=== PATIENT | female | born 1975 | race Hispanic/Latino ===

== ENCOUNTER 2022-07-25 10:51 | Emergency (ER) | payer OTHER ==
--- OUTSIDE RECORDS SUMMARY | 2022-07-25 11:04 | XMS REPORT | Continuity of Care Document ---
:1975 Author Organization [facility] t Address [address] [place] [address] Care Team Providers Name Role Phone Roberth Handley MD Primary Care Physician [phone] BLANQUITA OSORIO Attending Clinician Unavailable Parvez Coleman Attending Clinician Pob, [facility] Main Attending Clinician Unavailable Bri Majano MD Attending Clinician BRI MAJANO Attending Clinician Unavailable Doctor Unassigned, [place] Attending Clinician Unavailable ALONSO EDMOND Attending Clinician Unavailable Bacilio Greene Attending Clinician Unavailable Blanquita Osorio PA-C Attending Clinician Angeline Mejia MD Attending Clinician ANGELINE MEJIA Attending Clinician Unavailable MILES VU Attending Clinician Unavailable Ethel Vigil Attending Clinician Miles Gomez Attending Clinician Lab, Ang - Db Attending Clinician Unavailable PARVEZ HERNANDEZ Attending Clinician Unavailable Roberth Handley MD Attending Clinician CALLY SIMENTAL Attending Clinician Unavailable Claly Simental MD Attending Clinician Unknown, Attending Attending Clinician Unavailable Radha Tanner Attending Clinician 1, [facility] Attending Clinician Unavailable ROBERTH HANDLEY Attending Clinician Unavailable Elis Alfonso Attending Clinician ELIS FAIRCHILD Attending Clinician Unavailable RAS JACOBSEN Attending Clinician Unavailable RAS JACOBSEN Attending Clinician Unavailable Mike ZAMARRIPA, Edward Man Attending Clinician Eleanor ZAMARRIPA, Sly Smith Attending Clinician [phone] Diego ZAMARRIPA, Emil Attending Clinician EMIL HANSEN Attending Clinician Unavailable Kymberly Guzman DO Attending Clinician Ras Jacobsen MD Attending Clinician Dorian Brandt Attending Clinician Fahad Swenson MD Attending Clinician RADIOLOGY Attending Clinician Unavailable Paris Vizcarra Attending Clinician Lab, Adc Fam Pob I Attending Clinician Unavailable Fadi Jones Attending Clinician BLANQUITA OSORIO Admitting Clinician Unavailable Fadi Jones Admitting Clinician Payers Payer Name Policy Type Policy Number Effective Date Expiration Date S ource [employer] MEDICARE [id number] 2019 00:00:00 [employer] MCARE [id number] 2021 ADV CHOICE PPO 00:00:00 Problems Condition Condition Condition Status Onset Resolution Last Treating Co mments Source Name Details Category Date Date Treatment Clinician Date Hyperglyce Hyperglyce Disease Active 2020-09 U nivers rajinder rajinder 2 ity of 00:00: [address] Lyme Lyme Disease Active Univers disease disease 04-29 ity of 00:00: [address] Seizure Seizure Disease Active Univers disorder disorder 10-07 ity of 00:00: [address] Chronic Chronic Disease Active Univers depression depression 1-09 it y of 00:00: [place] [facility] SEIZURE SEIZURE Diagnosis Active 2018-092019-07-19 Memoria Active 11:45:00 l 07/17/2019 00:00: [place] tovar [address] BACK BACK Diagnosis Active 2018-092019-07-17 Mem oria PAIN/SEIZU PAIN/SEIZU 11:12:00 l RE RE Active 00:00: [place] 07/17/[address] [place] [address] History of History of Disease Active 2018- U nivers stroke stroke 4-21 ity of 00:00: [place] [facility] Benzodiaze Benzodiaze Disease Active U nivers pine pine 6-17 ity of overdose overdose 00:00: [place] [address] Medical Branch Obesity Obesity Disease Active Univers (BMI (BMI 5-05 ity of 30-39.9) 30-39.9) 00:00: [place] 00 Medical Branch Polyneurop Polyneuro Problem Active 2014-092019-07-20 Memoria athy due eliud due 0- 21:28:17 l to drug to drug 00:00: Memo (disorder) (disorder) 00 Active 07/11/2015 Problem 07/20/2019 Data migrated from WIB on 10/16/15. The patient has a very high B6 level which is known to cause burning sensations despite her claim she is not taking any. I don t know any condition that could create a B6 level other than exogenous intake. She can discuss this with her PCP and endocrinol ogy. I am no expert in the condition and told her so. 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 [facility] Arthritis Arthritis Problem Active 2014-092019-07-20 Memoria (disorder) (disorder) 0- 21:28:17 l Active 00:00: Memo 07/11/2015 00 Problem 07/20/2019 Data migrated from WIB on 10/16/15. The patient has joint pain in hands and a mother with RA. She should be evaluated for same and should consider that her neck pain may be of the same etiology. Originally documented as Arthritis. [facility] Refractory Refractor Problem Active 2014-092019-07-20 Memoria migraine y migraine 0-13 21:28:17 l without without 00:00: Memo aura aura 00 (disorder) (disorder) Active 07/11/2015 Problem 07/20/2019 Data migrated from WIB on 10/16/15. The patient has FCM that could be treated but there is obvious systemic non-migrai ne problems. Treating the migraine disorder in isolation is not likely to work. Originally documented as Common migraine with intractabl e migraine.< br/>Data migrated from WIB on 10/16/15. The patient has a migraine disorder that is severe, prolonged and frequent. Originally documented as Common migraine with intractabl e migraine. [facility] Anxiety Anxiety Problem Active 2019-07-20 Me moria disorder disorder 06-28 21:28:17 l (disorder) (disorder) 00:00: He rmann Active 06/28/2015 Problem 07/20/2019 Data migrated from WIB on 10/16/15. Supposedly controlled but with somatizati on. Originally documented as Anxiety disorder. [place] Paresthesi Paresthes Problem Active 2019-07-20 Memoria a of foot ia of foot 06-28 21:28:17 l (finding) (finding) 00:00: Herm harry Active 06/28/2015 Problem 07/20/2019 Data migrated from WIB on 10/16/15. The burning sensations are in spells and not explained by exam. There is increased pp in the legs but reflexes are normal.- Originally documented as Burning sensation of the foot. [place] BE on BE on Disease Active Univers CPAP CPAP ity of [facility] [place] Acid Acid Disease Active Univers reflux reflux ity of [facility] [place] Anxiety Anxiety Disease Active Univers and and ity of depression depression [facility] Fibromyalg Fibromyalg Disease Active U nivers ia ia ity of [facility] [place] Hyperlipid Hyperlipid Disease Active U nivers emia emia ity of [facility] [place] Irritable Irritable Disease Active Uni vers bowel bowel ity of syndrome syndrome [facility] [place] PCOS PCOS Disease Active Univers (polycysti (polycysti it y of c ovarian c ovarian [place] syndrome) syndrome) [facility] Seasonal Seasonal Disease Active Unive rs allergies allergies ity of [facility] [place] Colon Colon Disease Active Univers polyp polyp ity of [facility] [place] Asthma Asthma Disease Active Univers ity of [facility] [place] Benign Benign Problem Active 2019-07-20 [place] sae hypertensi hypertensi 21:28:17 l on on [place] (disorder) (disorder) Active Problem 07/20/2019 [facility] Central Central Problem Active 2019-07-20 Me moria sleep sleep 21:28:17 l apnea apnea Memo syndrome syndrome (disorder) (disorder) Active Problem 07/20/2019 [facility] Chronic Chronic Problem Active 2019-07-20 Me moria back pain back pain 21:28:17 l (disorder) (disorder) He rmann Active Problem 07/20/2019 [facility] 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 ) (situation ) Active Problem 07/20/2019 [facility] Polycystic Polycysti Problem Active 2019-07-20 Memoria ovaries c ovaries 21:28:17 l (disorder) (disorder) [place] r[place] Active Problem 07/20/2019 [facility] Vertigo Vertigo Problem Active 2019-07-20 Me moria (finding) (finding) 21:28:17 l Active Memo Problem 07/20/2019 [facility] UNSPECIFIE UNSPECIFI Diagnosis Active 2019-07-19 Memoria D ED 11:45:00 l CONVULSION CONVULSION He rmann S S Active [facility] Allergies, Adverse Reactions, Alerts Allergy Allergy Status Severity Reaction(s) Onset Inactive Treating Comm ents Source Name Type Date Date Clinician STERI DA Active [place] [facility] STIPS 06-20 [place] 00:00: [facility] TAPE DA Active [place] [facility] - [place] 00[facility]00: d [facility] NO KNOWN Drug Active Univers ALLERGIE Class ity of S [facility] [place] Social History Social Habit Start Date Stop Date Quantity Comments Source History of Passive smoker University of tobacco use [facility] [place] Exposure to 2022-06-18 2022-06-28 Not sure [facility] SARS-CoV-2 00:00:00 10:04:00 [place] [facility] (event) Branch Alcohol intake 2022-05-08 2022-05-08 Current University of 00:00:00 00:00:00 non-drinker of [facility] alcohol (finding) Branch Tobacco use and 2022-04-24 2022-04-24 Smokeless tobacco Un iversity of exposure 00:00:00 00:00:00 non-user [facility] [place] Social History 2017-09-08 2017-09-08 [facility] Johnny crabtree 17:58:08 17:58:08 [birth year] Universit y of 00:00:00 00:00:00 [facility] [place] Smoking Status Start Date Stop Date Source Never smoked tobacco [facility] Medications Ordered Filled Start Stop Current Ordering Indication Dosage Frequency Signature Comments Components Source Medication Medication Date Date Medication? Clinician (SIG) Name Name pantoprazol 2021-09- pantoprazo Univers e 40 mg EC 0-26 10-26 le 40 mg ity of tablet 09:28: 00[place] ay[place] Medical release Branch famotidine 2021-09 Yes [id number] 40mg Take 1 Univers 40 mg 0-26 tablet by ity of tablet 00:00: mouth in [place] 00 the Medical morning. Branch pseudoephed Yes Virtussin U nivers rine-codein 7-27 DAC 30 ity of e[place] 10:51: mg-10 [place] in 12 mg-100 Medical 30-10-100 mg/5 mL Branch mg/5 mL oral syrup solution tiZANidine Yes tizanidine U nivers 2 mg tablet 04-24 2 mg ity of 10:51: tablet [place] [address] Take 1 Medical tablet as Branch needed by oral route at bedtime for 30 days. valACYclovi Yes valacyclov Univers r 500 mg 7-27 ir 500 mg ity of tablet 10:51: tablet [address] GLUC/CHND/O Yes Take by Uni vers M3/DHA/EPA/ 7-27 mouth. ity of FISH/STR 10:51: [place] (GLUCOSAMIN 12 Medical E Branch CHONDROITIN PLUS ORAL) SERTraline Yes 200mg Take 200 Un yudy 100 mg 7-27 mg by ity of tablet 10:51: mouth [place] [address] daily. Medical Branch azithromyci Yes azithromyc Univers n 250 mg 7-27 in 250 mg ity of tablet 10:51: tablet [place] [address] Medical Branch Diclofenac Yes Voltaren 1 U nivers Sodium 1 % 7-27 % topical ity of gel 10:51: gel [place] 12 Medical Branch fluticasone Yes fluticason Univers propionate 7-27 e ity of 50 10:51: propionate [place] mcg/actuati 12 50 Medical on nasal mcg/actuat Branc h spray ion nasal spray,susp ension ipratropium Yes ipratropiu Univers -albuteroL 7-27 m 0.5 ity of 0.5 mg-3 10:51: mg-albuter [place] as mg(2.5 mg 12 ol 3 mg Medical base)/3 mL (2.5 mg Branch nebulizer base)/3 mL solution nebulizati on soln ketoconazol Yes ketoconazo Univers e 2 % 04-24 le 2 % ity of shampoo 10:51: shampoo [address] losartan 25 Yes losartan Un yudy mg tablet 04-24 25 mg ity of 10:51: tablet [address] metoclopram Yes metoclopra Univers bert HCl 10 04-24 mide 10 mg ity of mg tablet 10:51: tablet [address] ondansetron Yes ondansetro Univers 4 mg tablet 04-24 n HCl 4 mg it y of 10:51: tablet [address] polyethylen Yes Miralax 17 Univers e glycol 7-27 gram oral ity of 3350 17 10:51: powder [place] gram powder 12 packet Medica l Take 1 Branch packet(s) twice a day by oral route for 28 days. pregabalin Yes Lyrica 75 Un yudy 75 mg -27 mg capsule ity of capsule 10:51: Take 1 [place] 12 capsule 3 Medical times a Branch day by oral route as directed for 30 days. pseudoephed Yes Virtussin U nivers rine-codein 727 DAC 30 ity of [place] 10:51: mg-10 [place] in 12 mg-100 Medical 30-10-100 mg/5 mL Branch mg/5 mL oral syrup solution tiZANidine Yes tizanidine U nivers 2 mg tablet 04-24 2 mg ity of 10:51: tablet [place] 12 Take 1 Medical tablet as Branch needed by oral route at bedtime for 30 days. valACYclovi Yes valacyclov Univers r 500 mg 04-24 ir 500 mg ity of tablet 10:51: tablet [address] GLUC/CHND/O Yes Take by Uni vers M3/DHA/EPA/ 04-24 mouth. ity of FISH/STR 10:51: [place] (GLUCOSAMIN Medical E Branch CHONDROITIN PLUS ORAL) SERTraline Yes 200mg Take 200 Un yudy 100 mg 04-24 mg by ity of tablet 10:51: mouth [place] [address] daily. Medical Branch azithromyci Yes azithromyc Univers n 250 mg 04-24 in 250 mg ity of tablet 10:51: tablet [address] Diclofenac Yes Voltaren 1 U nivers Sodium 1 % 04-24 % topical ity of gel 10:51: gel [address] fluticasone Yes fluticason Univers propionate 04-24 e ity of 50 10:51: propionate [place] mcg/actuati 12 50 Medical on nasal mcg/actuat Branc h spray ion nasal spray,susp ension ipratropium Yes ipratropiu Univers -albuteroL 04-24 m 0.5 ity of 0.5 mg-3 10:51: mg-albuter [place] as mg(2.5 mg 12 ol 3 mg Medical base)/3 mL (2.5 mg Branch nebulizer base)/3 mL solution nebulizati on soln ketoconazol Yes ketoconazo Univers e 2 % 04-24 le 2 % ity of shampoo 10:51: shampoo [address] losartan 25 Yes losartan Un yudy mg tablet 04-24 25 mg ity of 10:51: tablet [address] metoclopram Yes metoclopra Univers bert HCl 10 04-24 mide 10 mg ity of mg tablet 10:51: tablet [address] ondansetron Yes ondansetro Univers 4 mg tablet 04-24 n HCl 4 mg it y of 10:51: tablet [address] pantoprazol Yes pantoprazo Univers e 40 mg EC 04-24 le 40 mg ity o f tablet 10:51: tablet,del [place] 12 ayed Medical release Branch polyethylen Yes Miralax 17 Univers e glycol 7-27 gram oral ity of 3350 17 10:51: powder [place] gram powder 12 packet Medica l Take 1 Branch packet(s) twice a day by oral route for 28 days. pregabalin Yes Lyrica 75 Un yudy 75 mg 7-27 mg capsule ity of capsule 10:51: Take 1 [place] 12 capsule 3 Medical times a Branch day by oral route as directed for 30 days. pseudoephed Yes Virtussin U nivers rine-codein 04-24 DAC 30 ity of e[place] 10:51: mg-10 [place] in 12 mg-100 Medical 30-10-100 mg/5 mL Branch mg/5 mL oral syrup solution tiZANidine Yes tizanidine U nivers 2 mg tablet 04-24 2 mg ity of 10:51: tablet [place] 12 Take 1 Medical tablet as Branch needed by oral route at bedtime for 30 days. valACYclovi Yes valacyclov Univers r 500 mg 04-24 ir 500 mg ity of tablet 10:51: tablet [place] [address] Medical Branch GLUC/CHND/O Yes Take by Uni vers M3/DHA/EPA/ 04-24 mouth. ity of FISH/STR 10:51: [place] (GLUCOSAMIN 12 Medical E Branch CHONDROITIN PLUS ORAL) SERTraline Yes 200mg Take 200 Un yudy 100 mg -27 mg by ity of tablet 10:51: mouth [place] 12 daily. Medical Branch azithromyci Yes azithromyc Univers n 250 mg 27 in 250 mg ity of tablet 10:51: tablet [place] [address] Medical Branch Diclofenac Yes Voltaren 1 U nivers Sodium 1 % 04-24 % topical ity of gel 10:51: gel Medical Branch fluticasone Yes fluticason Univers propionate 04-24 e ity of 50 10:51: propionate [place] mcg/actuati 12 50 Medical on nasal mcg/actuat Branc h spray ion nasal spray,susp ension ipratropium Yes ipratropiu Univers -albuteroL 04-24 m 0.5 ity of 0.5 mg-3 10:51: mg-albuter [place] mg(2.5 mg 12 ol 3 mg Medical base)/3 mL (2.5 mg Branch nebulizer base)/3 mL solution nebulizati on soln ketoconazol Yes ketoconazo Univers e 2 % 7-27 le 2 % ity of shampoo 10:51: shampoo [address] Branch losartan 25 Yes losartan Un yudy mg tablet 27 25 mg ity of 10:51: tablet [address] Branch metoclopram Yes metoclopra Univers bert HCl 10 04-24 mide 10 mg ity of mg tablet 10:51: tablet [address] ondansetron Yes ondansetro Univers 4 mg tablet 04-24 n HCl 4 mg it y of 10:51: tablet [address] pantoprazol Yes pantoprazo Univers e 40 mg EC 04-24 le 40 mg ity o f tablet 10:51: tablet,del [place] [address] ayed Medical release Branch polyethylen Yes Miralax 17 Univers e glycol 7-27 gram oral ity of 3350 17 10:51: powder [place] gram powder 12 packet Medica l Take 1 Branch packet(s) twice a day by oral route for 28 days. pregabalin Yes Lyrica 75 Un yudy 75 mg 7-27 mg capsule ity of capsule 10:51: Take 1 [place] 12 capsule 3 Medical times a Branch day by oral route as directed for 30 days. pseudoephed Yes Virtussin U nivers rine-codein 7-27 DAC 30 ity of [place] 10:51: mg-10 [place] in 12 mg-100 Medical 30-10-100 mg/5 mL Branch mg/5 mL oral syrup solution tiZANidine Yes tizanidine U nivers 2 mg tablet 04-24 2 mg ity of 10:51: tablet [place] 12 Take 1 Medical tablet as Branch needed by oral route at bedtime for 30 days. valACYclovi Yes valacyclov Univers r 500 mg 7-27 ir 500 mg ity of tablet 10:51: tablet [address] GLUC/CHND/O 2022-0 Yes Take by Uni vers M3/DHA/EPA/ - mouth. ity of FISH/STR 10:51: [place] (GLUCOSAMIN 12 Medical E Branch CHONDROITIN PLUS ORAL) SERTraline Yes 200mg Take 200 Un yudy 100 mg 7-27 mg by ity of tablet 10:51: mouth [place] [address] daily. Medical Branch azithromyci Yes azithromyc Univers n 250 mg -27 in 250 mg ity of tablet 10:51: tablet [address] Diclofenac Yes Voltaren 1 U nivers Sodium 1 % 04-24 % topical ity of gel 10:51: gel [address] fluticasone Yes fluticason Univers propionate 04-24 e ity of 50 10:51: propionate [place] mcg/actuati 12 50 Medical on nasal mcg/actuat Branc h spray ion nasal spray,susp ension ipratropium Yes ipratropiu Univers -albuteroL 04-24 m 0.5 ity of 0.5 mg-3 10:51: mg-albuter [place] as mg(2.5 mg 12 ol 3 mg Medical base)/3 mL (2.5 mg Branch nebulizer base)/3 mL solution nebulizati on soln ketoconazol Yes ketoconazo Univers e 2 % 04-24 le 2 % ity of shampoo 10:51: shampoo [address] losartan 25 Yes losartan Un yudy mg tablet 04-24 25 mg ity of 10:51: tablet [address] metoclopram Yes metoclopra Univers bert HCl 10 04-24 mide 10 mg ity of mg tablet 10:51: tablet [address] ondansetron Yes ondansetro Univers 4 mg tablet 04-24 n HCl 4 mg it y of 10:51: tablet [address] pantoprazol Yes pantoprazo Univers e 40 mg EC 04-24 le 40 mg ity o f tablet 10:51: tablet,del [place] [address] ayed Medical release Branch polyethylen Yes Miralax 17 Univers e glycol 7-27 gram oral ity of 3350 17 10:51: powder [facility] powder 12 packet Medica l Take 1 Branch packet(s) twice a day by oral route for 28 days. pregabalin Yes Lyrica 75 Un yudy 75 mg 7-27 mg capsule ity of capsule 10:51: Take 1 [place] 12 capsule 3 Medical times a Branch day by oral route as directed for 30 days. pseudoephed Yes Virtussin U nivers rine-codein 04-24 DAC 30 ity of [place] 10:51: mg-10 [place] in 12 mg-100 Medical 30-10-100 mg/5 mL Branch mg/5 mL oral syrup solution tiZANidine Yes tizanidine U nivers 2 mg tablet 04-24 2 mg ity of 10:51: tablet [place] 12 Take 1 Medical tablet as Branch needed by oral route at bedtime for 30 days. valACYclovi Yes valacyclov Univers r 500 mg - ir 500 mg ity of tablet 10:51: tablet [address] Branch GLUC/CHND/O Yes Take by Uni vers M3/DHA/EPA/ 04-24 mouth. ity of FISH/STR 10:51: [place] (GLUCOSAMIN 12 Medical E Branch CHONDROITIN PLUS ORAL) SERTraline Yes 200mg Take 200 Un yudy 100 mg 7-27 mg by ity of tablet 10:51: mouth [place] 12 daily. Medical Branch azithromyci Yes azithromyc Univers n 250 mg -27 in 250 mg ity of tablet 10:51: tablet [address] Branch Diclofenac Yes Voltaren 1 U nivers Sodium 1 % 04-24 % topical ity of gel 10:51: gel [address] Branch fluticasone Yes fluticason Univers propionate 04-24 e ity of 50 10:51: propionate [place] mcg/actuati 12 50 Medical on nasal mcg/actuat Branc h spray ion nasal spray,susp ension ipratropium Yes ipratropiu Univers -albuteroL 04-24 m 0.5 ity of 0.5 mg-3 10:51: mg-albuter [place] as mg(2.5 mg 12 ol 3 mg Medical base)/3 mL (2.5 mg Branch nebulizer base)/3 mL solution nebulizati on soln ketoconazol Yes ketoconazo Univers e 2 % - le 2 % ity of shampoo 10:51: shampoo [place] [address] Medical Branch losartan 25 Yes losartan Un yudy mg tablet 04-24 25 mg ity of 10:51: tablet [address] Branch metoclopram Yes metoclopra Univers bert HCl 10 04-24 mide 10 mg ity of mg tablet 10:51: tablet [address] Branch ondansetron Yes ondansetro Univers 4 mg tablet 04-24 n HCl 4 mg it y of 10:51: tablet [address] Branch pantoprazol Yes pantoprazo Univers e 40 mg EC 04-24 le 40 mg ity o f tablet 10:51: tablet,del [place] [address] ayed Medical release Branch polyethylen Yes Miralax 17 Univers e glycol 7-27 gram oral ity of 3350 17 10:51: powder [place] gram powder 12 packet Medica l Take 1 Branch packet(s) twice a day by oral route for 28 days. pregabalin Yes Lyrica 75 Un yudy 75 mg -27 mg capsule ity of capsule 10:51: Take 1 [place] [address] capsule 3 Medical times a Branch day by oral route as directed for 30 days. pseudoephed Yes Virtussin U nivers rine-codein 04-24 DAC 30 ity of e[place] 10:51: mg-10 [place] in 12 mg-100 Medical 30-10-100 mg/5 mL Branch mg/5 mL oral syrup solution tiZANidine Yes tizanidine U nivers 2 mg tablet 04-24 2 mg ity of 10:51: tablet [place] 12 Take 1 Medical tablet as Branch needed by oral route at bedtime for 30 days. valACYclovi Yes valacyclov Univers r 500 mg - ir 500 mg ity of tablet 10:51: tablet [address] GLUC/CHND/O Yes Take by Uni vers M3/DHA/EPA/ 04-24 mouth. ity of FISH/STR 10:51: [place] (GLUCOSAMIN 12 Medical E Branch CHONDROITIN PLUS ORAL) SERTraline Yes 200mg Take 200 Un yudy 100 mg 7-27 mg by ity of tablet 10:51: mouth [place] [address] daily. Medical Branch azithromyci Yes azithromyc Univers n 250 mg 7-27 in 250 mg ity of tablet 10:51: tablet [address] Diclofenac Yes Voltaren 1 U nivers Sodium 1 % 7-27 % topical ity of gel 10:51: gel [address] fluticasone Yes fluticason Univers propionate 7-27 e ity of 50 10:51: propionate [place] mcg/actuati 12 50 Medical on nasal mcg/actuat Branc h spray ion nasal spray,susp ension ipratropium Yes ipratropiu Univers -albuteroL 7- m 0.5 ity of 0.5 mg-3 10:51: mg-albuter [place] as mg(2.5 mg 12 ol 3 mg Medical base)/3 mL (2.5 mg Branch nebulizer base)/3 mL solution nebulizati on soln ketoconazol Yes ketoconazo Univers e 2 % -27 le 2 % ity of shampoo 10:51: shampoo [address] losartan 25 Yes losartan Un yudy mg tablet 7-27 25 mg ity of 10:51: tablet [address] metoclopram Yes metoclopra Univers bert HCl 10 04-24 mide 10 mg ity of mg tablet 10:51: tablet [address] ondansetron Yes ondansetro Univers 4 mg tablet 04-24 n HCl 4 mg it y of 10:51: tablet [address] pantoprazol Yes pantoprazo Univers e 40 mg EC 7-27 le 40 mg ity o f tablet 10:51: tablet,del [place] [address] ayed [facility] release [place] polyethylen Yes Miralax 17 Univers e glycol 7-27 gram oral ity of 3350 17 10:51: powder [facility] powder packet Medica l Take 1 Branch packet(s) twice a day by oral route for 28 days. pregabalin Yes Lyrica 75 Un yudy 75 mg 7-27 mg capsule ity of capsule 10:51: Take 1 [place] [address] capsule 3 Medical times a Branch day by oral route as directed for 30 days. pseudoephed Yes Virtussin U nivers rine-codein 04-24 DAC 30 ity of [place] 10:51: mg-10 [place] in 12 mg-100 Medical 30-10-100 mg/5 mL Branch mg/5 mL oral syrup solution tiZANidine Yes tizanidine U nivers 2 mg tablet 04-24 2 mg ity of 10:51: tablet [place] [address] Take 1 Medical tablet as Branch needed by oral route at bedtime for 30 days. valACYclovi Yes valacyclov Univers r 500 mg 04-24 ir 500 mg ity of tablet 10:51: tablet [address] GLUC/CHND/O Yes Take by Uni vers M3/DHA/EPA/ 04-24 mouth. ity of FISH/STR 10:51: [place] (GLUCOSAMIN 12 Medical E Branch CHONDROITIN PLUS ORAL) SERTraline Yes 200mg Take 200 Un yudy 100 mg 04-24 mg by ity of tablet 10:51: mouth [place] 12 daily. [facility] Branch azithromyci Yes azithromyc Univers n 250 mg 04-24 in 250 mg ity of tablet 10:51: tablet [address] Diclofenac Yes Voltaren 1 U nivers Sodium 1 % 04-24 % topical ity of gel 10:51: gel [address] fluticasone Yes fluticason [facility] propionate 04-24 e ity of 50 10:51: propionate [place] mcg/actuati 12 50 Medical on nasal mcg/actuat Branc h spray ion nasal spray,susp ension ipratropium Yes ipratropiu Univers -albuteroL 27 m 0.5 ity of 0.5 mg-3 10:51: mg-albuter [place] as mg(2.5 mg 12 ol 3 mg Medical base)/3 mL (2.5 mg Branch nebulizer base)/3 mL solution nebulizati on soln ketoconazol Yes ketoconazo [facility] e 2 % 27 le 2 % ity of shampoo 10:51: shampoo [place] 12 Medical Branch losartan 25 Yes losartan Un yudy mg tablet 04-24 25 mg ity of 10:51: tablet [place] [address] Medical Branch metoclopram Yes metoclopra Univers bert HCl 10 04-24 mide 10 mg ity of mg tablet 10:51: tablet [place] [address] Medical Branch ondansetron Yes ondansetro Univers 4 mg tablet 04-24 n HCl 4 mg it y of 10:51: tablet [address] Branch pantoprazol Yes pantoprazo Univers e 40 mg EC 04-24 le 40 mg ity o f tablet 10:51: tablet,del [place] [address] ayed Medical release Branch polyethylen Yes Miralax 17 Univers e glycol 7-27 gram oral ity of 3350 17 10:51: powder [facility] powder 12 packet Medica l Take 1 Branch packet(s) twice a day by oral route for 28 days. pregabalin Yes Lyrica 75 Un yudy 75 mg 7-27 mg capsule ity of capsule 10:51: Take 1 [place] [address] capsule 3 Medical times a Branch day by oral route as directed for 30 days. pseudoephed Yes Virtussin U nivers rine-codein -27 DAC 30 ity of e-[place] 10:51: mg-10 [place] in 12 mg-100 Medical 30-10-100 mg/5 mL Branch mg/5 mL oral syrup solution tiZANidine Yes tizanidine U nivers 2 mg tablet 04-24 2 mg ity of 10:51: tablet [place] [address] Take 1 Medical tablet as Branch needed by oral route at bedtime for 30 days. valACYclovi Yes valacyclov Univers r 500 mg - ir 500 mg ity of tablet 10:51: tablet [address] Branch GLUC/CHND/O Yes Take by Uni vers M3/DHA/EPA/ 04-24 mouth. ity of FISH/STR 10:51: [place] (GLUCOSAMIN 12 Medical E Branch CHONDROITIN PLUS ORAL) SERTraline Yes 200mg Take 200 Un yudy 100 mg 7-27 mg by ity of tablet 10:51: mouth [place] 12 daily. Medical Branch azithromyci Yes azithromyc Univers n 250 mg 04-24 in 250 mg ity of tablet 10:51: tablet [address] Diclofenac Yes Voltaren 1 U nivers Sodium 1 % 04-24 % topical ity of gel 10:51: gel [address] fluticasone Yes fluticason [facility] propionate 04-24 e ity of 50 10:51: propionate [place] mcg/actuati 12 50 Medical on nasal mcg/actuat Branc h spray ion nasal spray,susp ension ipratropium Yes ipratropiu [facility] -albuteroL 04-24 m 0.5 ity of 0.5 mg-3 10:51: mg-albuter [place] as mg(2.5 mg 12 ol 3 mg Medical base)/3 mL (2.5 mg Branch nebulizer base)/3 mL solution nebulizati on soln ketoconazol Yes ketoconazo Univers e 2 % 04-24 le 2 % ity of shampoo 10:51: shampoo [address] losartan 25 Yes losartan Un yudy mg tablet 04-24 25 mg ity of 10:51: tablet [address] metoclopram Yes metoclopra Univers bert HCl 10 04-24 mide 10 mg ity of mg tablet 10:51: tablet [address] ondansetron Yes ondansetro Univers 4 mg tablet 04-24 n HCl 4 mg it y of 10:51: tablet [address] pantoprazol Yes pantoprazo Univers e 40 mg EC 04-24 le 40 mg ity o f tablet 10:51: tablet,del [place] [address] ayed Medical release [place] polyethylen Yes Miralax 17 Univers e glycol 7-27 gram oral ity of 3350 17 10:51: powder [place] gram powder 12 packet Medica l Take 1 [place] packet(s) twice a day by oral route for 28 days. pregabalin Yes Lyrica 75 Un yudy 75 mg 7-27 mg capsule ity of capsule 10:51: Take 1 [place] [address] capsule 3 Medical times a Branch day by oral route as directed for 30 days. pseudoephed Yes Virtussin U nivers rine-codein 04-24 DAC 30 ity of e-[place] 10:51: mg-10 [place] in 12 mg-100 Medical 30-10-100 mg/5 mL Branch mg/5 mL oral syrup solution tiZANidine Yes tizanidine U nivers 2 mg tablet 04-24 2 mg ity of 10:51: tablet [place] [address] Take 1 Medical tablet as Branch needed by oral route at bedtime for 30 days. valACYclovi Yes valacyclov [facility] r 500 mg 04-24 ir 500 mg ity of tablet 10:51: tablet [address] GLUC/CHND/O Yes Take by Uni vers M3/DHA/EPA/ 04-24 mouth. ity of FISH/STR 10:51: [place] (GLUCOSAMIN 12 Medical E Branch CHONDROITIN PLUS ORAL) SERTraline Yes 200mg Take 200 Un yudy 100 mg 04-24 mg by ity of tablet 10:51: mouth [place] [address] daily. [facility] Branch azithromyci Yes azithromyc Univers n 250 mg 04-24 in 250 mg ity of tablet 10:51: tablet [address] Diclofenac Yes Voltaren 1 U nivers Sodium 1 % 04-24 % topical ity of gel 10:51: gel [address] fluticasone Yes fluticason [facility] propionate 04-24 e ity of 50 10:51: propionate [place] mcg/actuati 12 50 Medical on nasal mcg/actuat Branc h spray ion nasal spray,susp ension ipratropium Yes ipratropiu Univers -albuteroL 04-24 m 0.5 ity of 0.5 mg-3 10:51: mg-albuter [place] mg(2.5 mg 12 ol 3 mg Medical base)/3 mL (2.5 mg Branch nebulizer base)/3 mL solution nebulizati on soln ketoconazol Yes ketoconazo [facility] e 2 % 04-24 le 2 % ity of shampoo 10:51: shampoo [address] Branch losartan 25 Yes losartan Un yudy mg tablet 04-24 25 mg ity of 10:51: tablet [address] metoclopram 2022-0 Yes metoclopra [facility] bert HCl 10 04-24 mide 10 mg ity of mg tablet 10:51: tablet [place] [address] Medical Branch ondansetron Yes ondansetro Univers 4 mg tablet 04-24 n HCl 4 mg it y of 10:51: tablet [place] [address] Medical Branch pantoprazol Yes pantoprazo Univers e 40 mg EC 27 le 40 mg ity o f tablet 10:51: tablet,del [place] 12 ayed Medical release Branch polyethylen Yes Miralax 17 Univers e glycol 7-27 gram oral ity of 3350 17 10:51: powder [place] gram powder 12 packet Medica l Take 1 Branch packet(s) twice a day by oral route for 28 days. pregabalin Yes Lyrica 75 Un yudy 75 mg 7-27 mg capsule ity of capsule 10:51: Take 1 [place] 12 capsule 3 Medical times a Branch day by oral route as directed for 30 days. pseudoephed Yes Virtussin U nivers rine-codein - DAC 30 ity of e-[place] 10:51: mg-10 [place] in 12 mg-100 Medical 30-10-100 mg/5 mL Branch mg/5 mL oral syrup solution tiZANidine Yes tizanidine U nivers 2 mg tablet 04-24 2 mg ity of 10:51: tablet [place] 12 Take 1 Medical tablet as Branch needed by oral route at bedtime for 30 days. valACYclovi Yes valacyclov Univers r 500 mg 04-24 ir 500 mg ity of tablet 10:51: tablet [address] Branch GLUC/CHND/O Yes Take by Uni vers M3/DHA/EPA/ 04-24 mouth. ity of FISH/STR 10:51: [place] (GLUCOSAMIN 12 Medical E Branch CHONDROITIN PLUS ORAL) SERTraline Yes 200mg Take 200 Un yudy 100 mg 7-27 mg by ity of tablet 10:51: mouth [place] 12 daily. Medical Branch azithromyci Yes azithromyc Univers n 250 mg -27 in 250 mg ity of tablet 10:51: tablet [place] [address] Medical Branch Diclofenac Yes Voltaren 1 U nivers Sodium 1 % 7-27 % topical ity of gel 10:51: gel [address] fluticasone Yes fluticason [facility] propionate 7-27 e ity of 50 10:51: propionate [place] mcg/actuati 12 50 Medical on nasal mcg/actuat Branc h spray ion nasal spray,susp ension ipratropium Yes ipratropiu Univers -albuteroL 727 m 0.5 ity of 0.5 mg-3 10:51: mg-albuter [place] as mg(2.5 mg 12 ol 3 mg Medical base)/3 mL (2.5 mg Branch nebulizer base)/3 mL solution nebulizati on soln ketoconazol Yes ketoconazo [facility] e 2 % 04-24 le 2 % ity of shampoo 10:51: shampoo [address] losartan 25 Yes losartan Un yudy mg tablet 27 25 mg ity of 10:51: tablet [address] metoclopram Yes metoclopra Univers bert HCl 10 04-24 mide 10 mg ity of mg tablet 10:51: tablet [address] ondansetron Yes ondansetro Univers 4 mg tablet 04-24 n HCl 4 mg it y of 10:51: tablet [address] pantoprazol Yes pantoprazo Univers e 40 mg EC 04-24 le 40 mg ity o f tablet 10:51: tablet,del [place] [address] ayed Medical release [place] polyethylen Yes Miralax 17 Univers e glycol 7-27 gram oral ity of 3350 17 10:51: powder [place] gram powder 12 packet Medica l Take 1 [place] packet(s) twice a day by oral route for 28 days. pregabalin Yes Lyrica 75 Un yudy 75 mg 7-27 mg capsule ity of capsule 10:51: Take 1 [place] [address] capsule 3 Medical times a [place] day by oral route as directed for 30 days. FLUoxetine Yes 20mg Take 20 mg U nivers 20 mg 7-06 by mouth ity of capsule 00:00: in the [place] 00 morning. Medical Branch FLUoxetine Yes 20mg Take 20 mg U nivers 20 mg 7-06 by mouth ity of capsule 00:00: in the [place] morning. Medical Branch FLUoxetine 2022-0 Yes 20mg Take 20 mg U nivers 20 mg 7-06 by mouth ity of capsule 00:00: in the [place] morning. Medical Branch FLUoxetine 2022-0 Yes 20mg Take 20 mg U nivers 20 mg 7-06 by mouth ity of capsule 00:00: in the [place] morning. Medical Branch FLUoxetine 2022-0 Yes 20mg Take 20 mg U nivers 20 mg 7-06 by mouth ity of capsule 00:00: in the [place] morning. Medical Branch FLUoxetine 2022-0 Yes 20mg Take 20 mg U nivers 20 mg 7-06 by mouth ity of capsule 00:00: in the [place] morning. Medical Branch FLUoxetine 2022-0 Yes 20mg Take 20 mg U nivers 20 mg 7-06 by mouth ity of capsule 00:00: in the [place] morning. Medical Branch FLUoxetine 2022-0 Yes 20mg Take 20 mg U nivers 20 mg 7-06 by mouth ity of capsule 00:00: in the [place] morning. Medical Branch FLUoxetine 2022-0 Yes 20mg Take 20 mg U nivers 20 mg 7-06 by mouth ity of capsule 00:00: in the [place] morning. Medical Branch FLUoxetine 2022-0 Yes 20mg Take 20 mg U nivers 20 mg 7-06 by mouth ity of capsule 00:00: in the [place] morning. Medical Branch METHOCARBAM 2-0 Yes [id number] TAKE 1 Univers OL 500 mg 5-17 TABLET BY ity o f tablet 00:00: MOUTH 4 [place] 00 TIMES Medical DAILY Branch NEEDED FOR MUSCLE SPASM METHOCARBAM 2021-0 Yes TAKE 1 Univers OL 500 mg 5-17 TABLET BY ity o f tablet 00:00: MOUTH 4 [place] TIMES Medical DAILY Branch NEEDED FOR MUSCLE SPASM METHOCARBAM 2021-0 Yes TAKE 1 Univers OL 500 mg 5-17 TABLET BY ity o f tablet 00:00: MOUTH 4 [place] 00 TIMES Medical DAILY Branch NEEDED FOR MUSCLE SPASM METHOCARBAM 2021-0 Yes TAKE 1 Univers OL 500 mg 5-17 TABLET BY ity o f tablet 00:00: MOUTH 4 [place] 00 TIMES Medical DAILY Branch NEEDED FOR MUSCLE SPASM METHOCARBAM 2021-0 Yes TAKE 1 Univers OL 500 mg 5-17 TABLET BY ity o f tablet 00:00: MOUTH 4 [place] 00 TIMES Medical DAILY Branch NEEDED FOR MUSCLE SPASM METHOCARBAM 2-0 Yes TAKE 1 Univers OL 500 mg 5-17 TABLET BY ity o f tablet 00:00: MOUTH 4 [place] 00 TIMES Medical DAILY Branch NEEDED FOR MUSCLE SPASM METHOCARBAM 2-0 Yes TAKE 1 Univers OL 500 mg 5-17 TABLET BY ity o f tablet 00:00: MOUTH 4 [place] 00 TIMES Medical DAILY Branch NEEDED FOR MUSCLE SPASM METHOCARBAM 2-0 Yes TAKE 1 Univers OL 500 mg 5-17 TABLET BY ity o f tablet 00:00: MOUTH 4 [place] 00 TIMES Medical DAILY Branch NEEDED FOR MUSCLE SPASM METHOCARBAM 2-0 Yes TAKE 1 Univers OL 500 mg 5-17 TABLET BY ity o f tablet 00:00: MOUTH 4 [place] 00 TIMES Medical DAILY Branch NEEDED FOR MUSCLE SPASM METHOCARBAM 2-0 Yes TAKE 1 Univers OL 500 mg 5-17 TABLET BY ity o f tablet 00:00: MOUTH 4 [place] 00 TIMES Medical DAILY Branch NEEDED FOR MUSCLE SPASM UBRELVY 100 2021-0 Yes Take by Uni vers mg Tab 5-16 mouth as ity of 09:35: needed [place] 15 (migraine Medical headache). Branch UBRELVY 100 2021-0 Yes Take by Uni vers mg Tab 5-16 mouth as ity of 09:35: needed [place] 15 (migraine Medical headache). Branch UBRELVY 100 2021-0 Yes Take by Uni vers mg Tab 5-16 mouth as ity of 09:35: needed [place] 15 (migraine Medical headache). Branch UBRELVY 100 2021-0 Yes Take by Uni vers mg Tab 5-16 mouth as ity of 09:35: needed [place] 15 (migraine Medical headache). Branch UBRELVY 100 2021-0 Yes Take by Uni vers mg Tab 5-16 mouth as ity of 09:35: needed [place] 15 (migraine Medical headache). Branch UBRELVY 100 2021-0 Yes Take by Uni vers mg Tab 5-16 mouth as ity of 09:35: needed [place] 15 (migraine Medical headache). Branch UBRELVY 100 2021-0 Yes Take by Uni vers mg Tab 5-16 mouth as ity of 09:35: needed [place] 15 (migraine Medical headache). Branch UBRELVY 100 Yes Take by Uni vers mg Tab 5-16 mouth as ity of 09:35: needed [place] 15 (migraine Medical headache). Branch UBRELVY 100 Yes Take by Uni vers mg Tab 5-16 mouth as ity of 09:35: needed [place] 15 (migraine Medical headache). Branch UBRELVY 100 Yes Take by Uni vers mg Tab 5-16 mouth as ity of 09:35: needed [place] 15 (migraine Medical headache). Branch montelukast Yes [id number] 10mg Take 1 Univers 10 mg 5-16 tablet by ity of tablet 00:00: mouth [place] 00 daily. Medical Branch albuterol Yes [id number] INHALE 3 Univers 2.5 mg /3 5-16 ML IN ity of mL (0.083 00:00: NEBULIZER [place] as %) 00 EVERY 4 Medical nebulizer HOURS Branch solution NEEDED FOR WHEEZING OR SHORTNESS OF BREATH EPINEPHrine Yes [id number] .3mg 0.3 mL by Univers 0.3 mg/0.3 5-16 9107 [facility]cu ity of mL 00:00: lar route [place] injection 00 as needed Medic al (severe Branch allergic reaction). famotidine Yes [id number] 20mg Take 1 Univers 20 mg 5-16 tablet by ity of tablet 00:00: mouth 2 [place] 00 (two) Medical times Branch daily before breakfast and dinner. REPLACES PANTOPRAZO LE. montelukast Yes [id number] 10mg Take 1 Univers 10 mg 5-16 tablet by ity of tablet 00:00: mouth [place] 00 daily. Medical Branch albuterol Yes [id number] INHALE 3 Univers 2.5 mg /3 5-16 ML IN ity of mL (0.083 00:00: NEBULIZER [place] as %) 00 EVERY 4 Medical nebulizer HOURS Branch solution NEEDED FOR WHEEZING OR SHORTNESS OF BREATH EPINEPHrine Yes [id number] .3mg 0.3 mL by Univers 0.3 mg/0.3 5-16 9107 [facility] ity of mL 00:00: lar route [place] injection 00 as needed Medic al (severe Branch allergic reaction). famotidine 2021-0 Yes [id number] 20mg Take 1 Univers 20 mg 5-16 tablet by ity of tablet 00:00: mouth 2 (two) Medical times Branch daily before breakfast and dinner. REPLACES PANTOPRAZO LE. montelukast 2021-0 Yes [id number] 10mg Take 1 Univers 10 mg 5-16 tablet by ity of tablet 00:00: mouth [place] 00 daily. Medical Branch albuterol 2021-0 Yes [id number] INHALE 3 Univers 2.5 mg /3 5-16 ML IN ity of mL (0.083 00:00: NEBULIZER [place] as %) 00 EVERY 4 Medical nebulizer HOURS Branch solution NEEDED FOR WHEEZING OR SHORTNESS OF BREATH EPINEPHrine 2021-0 Yes [id number] .3mg 0.3 mL by Univers 0.3 mg/0.3 5-16 9107 [facility] ity of mL 00:00: lar route [place] injection 00 as needed Medic al (severe Branch allergic reaction). famotidine 2021-0 Yes [id number] 20mg Take 1 [facility] 20 mg 5-16 tablet by ity of tablet 00:00: mouth (two) Medical times Branch daily before breakfast and dinner. REPLACES PANTOPRAZO LE. montelukast 2021-0 Yes [id number] 10mg Take 1 Univers 10 mg 5-16 tablet by ity of tablet 00:00: mouth [place] 00 daily. Medical Branch albuterol 2021-0 Yes [id number] INHALE 3 Univers 2.5 mg /3 5-16 ML IN ity of mL (0.083 00:00: NEBULIZER [place] %) 00 EVERY 4 Medical nebulizer HOURS Branch solution NEEDED FOR WHEEZING OR SHORTNESS OF BREATH EPINEPHrine 2021-0 Yes [id number] .3mg 0.3 mL by Univers 0.3 mg/0.3 5-16 9107 [facility] ity of mL 00:00: lar route [place] injection 00 as needed Medic al (severe Branch allergic reaction). famotidine 2021-0 Yes [id number] 20mg Take 1 [facility] 20 mg 5-16 tablet by ity of tablet 00:00: mouth 2 (two) Medical times Branch daily before breakfast and dinner. REPLACES PANTOPRAZO LE. montelukast 0 Yes [id number] 10mg Take 1 Univers 10 mg 5-16 tablet by ity of tablet 00:00: mouth [place] 00 daily. Medical Branch albuterol 0 Yes [id number] INHALE 3 Univers 2.5 mg /3 5-16 ML IN ity of mL (0.083 00:00: NEBULIZER [place] %) 00 EVERY 4 Medical nebulizer HOURS Branch solution NEEDED FOR WHEEZING OR SHORTNESS OF BREATH EPINEPHrine 0 Yes [id number] .3mg 0.3 mL by Univers 0.3 mg/0.3 5-16 9107 [facility] ity of mL 00:00: lar route [place] injection 00 as needed Medic al (severe Branch allergic reaction). famotidine Yes [id number] 20mg Take 1 Univers 20 mg 5-16 tablet by ity of tablet 00:00: mouth 2 (two) Medical times Branch daily before breakfast and dinner. REPLACES PANTOPRAZO LE. montelukast 0 Yes [id number] 10mg Take 1 Univers 10 mg 5-16 tablet by ity of tablet 00:00: mouth [place] 00 daily. Medical Branch albuterol 0 Yes [id number] INHALE 3 Univers 2.5 mg /3 5-16 ML IN ity of mL (0.083 00:00: NEBULIZER [place] %) 00 EVERY 4 Medical nebulizer HOURS Branch solution NEEDED FOR WHEEZING OR SHORTNESS OF BREATH EPINEPHrine 2021-0 Yes [id number] .3mg 0.3 mL by Univers 0.3 mg/0.3 5-16 9107 [facility] ity of mL 00:00: lar route [place] injection 00 as needed Medic al (severe Branch allergic reaction). famotidine 2021-0 Yes [id number] 20mg Take 1 [facility] 20 mg 5-16 tablet by ity of tablet 00:00: mouth 2 [place] (two) Medical times Branch daily before breakfast and dinner. REPLACES PANTOPRAZO LE. montelukast 2021-0 Yes [id number] 10mg Take 1 [facility] 10 mg 5-16 tablet by ity of tablet 00:00: mouth [place] 00 daily. Medical Branch albuterol 0 Yes [id number] INHALE 3 Univers 2.5 mg /3 5-16 ML IN ity of mL (0.083 00:00: NEBULIZER [place] %) 00 EVERY 4 Medical nebulizer HOURS Branch solution NEEDED FOR WHEEZING OR SHORTNESS OF BREATH EPINEPHrine 2021-0 Yes [id number] .3mg 0.3 mL by Univers 0.3 mg/0.3 5-16 9107 [facility] ity of mL 00:00: lar route [place] injection 00 as needed Medic al (severe Branch allergic reaction). famotidine 2021-0 Yes [id number] 20mg Take 1 [facility] 20 mg 5-16 tablet by ity of tablet 00:00: mouth 2 [place] (two) Medical times Branch daily before breakfast and dinner. REPLACES PANTOPRAZO LE. montelukast 2021-0 Yes [id number] 10mg Take 1 [facility] 10 mg 5-16 tablet by ity of tablet 00:00: mouth [place] 00 daily. Medical Branch albuterol 0 Yes [id number] INHALE 3 Univers 2.5 mg /3 5-16 ML IN ity of mL (0.083 00:00: NEBULIZER [place] %) 00 EVERY 4 Medical nebulizer HOURS Branch solution NEEDED FOR WHEEZING OR SHORTNESS OF BREATH EPINEPHrine 2021-0 Yes [id number] .3mg 0.3 mL by Univers 0.3 mg/0.3 5-16 9107 [facility] ity of mL 00:00: lar route [place] injection 00 as needed Medic al (severe Branch allergic reaction). famotidine 2021-0 Yes [id number] 20mg Take 1 [facility] 20 mg 5-16 tablet by ity of tablet 00:00: mouth 2 [place] (two) Medical times Branch daily before breakfast and dinner. REPLACES PANTOPRAZO LE. montelukast 2021-0 Yes [id number] 10mg Take 1 [facility] 10 mg 5-16 tablet by ity of tablet 00:00: mouth [place] 00 daily. Medical Branch albuterol 2021-0 Yes [id number] INHALE 3 Univers 2.5 mg /3 5-16 ML IN ity of mL (0.083 00:00: NEBULIZER [place] %) 00 EVERY 4 Medical nebulizer HOURS Branch solution NEEDED FOR WHEEZING OR SHORTNESS OF BREATH EPINEPHrine 2021-0 Yes [id number] .3mg 0.3 mL by Univers 0.3 mg/0.3 5-16 9107 [facility] ity of mL 00:00: lar route [place] injection 00 as needed Medic al (severe Branch allergic reaction). famotidine Yes [id number] 20mg Take 1 [facility] 20 mg 5-16 tablet by ity of tablet 00:00: mouth 2 [place] 00 (two) Medical times Branch daily before breakfast and dinner. REPLACES PANTOPRAZO LE. montelukast Yes [id number] 10mg Take 1 [facility] 10 mg 5-16 tablet by ity of tablet 00:00: mouth [place] 00 daily. Medical Branch albuterol Yes [id number] INHALE 3 [facility] 2.5 mg /3 5-16 ML IN ity of mL (0.083 00:00: NEBULIZER [place] %) 00 EVERY 4 Medical nebulizer HOURS Branch solution NEEDED FOR WHEEZING OR SHORTNESS OF BREATH EPINEPHrine Yes [id number] .3mg 0.3 mL by Univers 0.3 mg/0.3 5-16 9107 [facility] ity of mL 00:00: lar route [place] injection 00 as needed Medic al (severe Branch allergic reaction). famotidine 2021- No [id number] 20mg Take 1 [facility] 20 mg 5-16 10-26 tablet by ity of tablet 00:00: 00:00 mouth 2 [place] 00 :00 (two) Medical times Branch daily before breakfast and dinner. REPLACES PANTOPRAZO LE. ACCU-CHEK 2020-09 Yes [id number] USE TO Un yudy FASTCLIX 2-02 CHECK ity of LANCET DRUM 00:00: GLUCOSE [place] Misc 00 ONCE DAILY Medical Branch ACCU-CHEK 2020-09 Yes [id number] USE TO Un [facility]y FASTCLIX 2-02 CHECK ity of LANCET DRUM 00:00: GLUCOSE [place] Misc 00 ONCE DAILY Medical Branch ACCU-CHEK 2020-09 Yes [id number] USE TO Un [facility] FASTCLIX 2-02 CHECK ity of LANCET DRUM 00:00: GLUCOSE [place] Misc 00 ONCE DAILY Medical Branch ACCU-CHEK 2020-09 Yes [id number] USE TO Un [facility]y FASTCLIX 2-02 CHECK ity of LANCET DRUM 00:00: GLUCOSE [place] Misc 00 ONCE DAILY Medical Branch ACCU-CHEK 2020-09 Yes [id number] USE TO Un [facility] FASTCLIX 2-02 CHECK ity of LANCET DRUM 00:00: GLUCOSE [place] Misc 00 ONCE DAILY Medical Branch ACCU-CHEK 2020-09 Yes [id number] USE TO Un [facility] FASTCLIX 2-02 CHECK ity of LANCET DRUM 00:00: GLUCOSE [place] Misc 00 ONCE DAILY Medical Branch ACCU-CHEK 2020-09 Yes [id number] USE TO Un [facility] FASTCLIX 2-02 CHECK ity of LANCET DRUM 00:00: GLUCOSE [place] Misc 00 ONCE DAILY Medical Branch ACCU-CHEK 2020-09 Yes [id number] USE TO Un [facility] FASTCLIX 2-02 CHECK ity of LANCET DRUM 00:00: GLUCOSE [place] Misc 00 ONCE DAILY Medical Branch ACCU-CHEK 2020-09 Yes [id number] USE TO Un [facility] FASTCLIX 2-02 CHECK ity of LANCET DRUM 00:00: GLUCOSE [place] Misc 00 ONCE DAILY Medical Branch ACCU-CHEK 2020-09 Yes [id number] USE TO Un [facility] FASTCLIX 2-02 CHECK ity of LANCET DRUM 00:00: GLUCOSE [place] Misc 00 ONCE DAILY Medical Branch Lancing 2020-09 Yes Check [facility] Device with 0-19 glucose ity o f Lancets 00:00: once a day [place] (ACCU-CHEK 00 or as Medical FASTCLIX directed, Branch LANCING ICD-10 DEV) Kit E11.9 ACCU-CHEK 2020-09 Yes USE 1 [facility] GUIDE TEST 0-19 STRIP ity o f STRIPS 00:00: DIRECTED [place] strip 00 ONCE DAILY Medical to monitor Branch blood glucose for ICD code E11.9 [place] 2020-09 Yes Check [facility] Device with 0-19 glucose ity o f Lancets 00:00: once a day [place] (ACCU-CHEK 00 or as Medical FASTCLIX directed, Branch LANCING ICD-10 DEV) Kit E11.9 ACCU-CHEK 2020-09 Yes USE 1 [facility] GUIDE TEST 0-19 STRIP ity o f STRIPS 00:00: DIRECTED [place] strip 00 ONCE DAILY Medical to monitor Branch blood glucose for ICD code E11.9 [place] 2020-09 Yes Check [facility] Device with 0-19 glucose ity o f Lancets 00:00: once a day [place] (ACCU-CHEK 00 or as Medical FASTCLIX directed, Branch LANCING ICD-10 DEV) Kit E11.9 ACCU-CHEK 2020-09 Yes USE 1 [facility] GUIDE TEST 0-19 STRIP ity o f STRIPS 00:00: DIRECTED [place] strip 00 ONCE DAILY Medical to monitor Branch blood glucose for ICD code E11.9 [place] 2020-09 Yes Check [facility] Device with 0-19 glucose ity o f Lancets 00:00: once a day [place] (ACCU-CHEK 00 or as Medical FASTCLIX directed, Branch LANCING ICD-10 DEV) Kit E11.9 ACCU-CHEK 2020-09 Yes USE 1 [facility] GUIDE TEST 0-19 STRIP ity o f STRIPS 00:00: DIRECTED [place] strip 00 ONCE DAILY Medical to monitor Branch blood glucose for ICD code E11.9 [place] 2020-09 Yes Check [facility] Device with 0-19 glucose ity o f Lancets 00:00: once a day [place] (ACCU-CHEK 00 or as Medical FASTCLIX directed, Branch LANCING ICD-10 DEV) Kit E11.9 ACCU-CHEK 2020-09 Yes USE 1 [facility] GUIDE TEST 0-19 STRIP ity o f STRIPS 00:00: DIRECTED [place] strip 00 ONCE DAILY Medical to monitor Branch blood glucose for ICD code E11.9 [place] 2020-09 Yes Check [facility] Device with 0-19 glucose ity o f Lancets 00:00: once a day [place] (ACCU-CHEK 00 or as Medical FASTCLIX directed, Branch LANCING ICD-10 DEV) Kit E11.9 ACCU-CHEK 2020-09 Yes USE 1 [facility] GUIDE TEST 0-19 STRIP ity o f STRIPS 00:00: DIRECTED [place] strip 00 ONCE DAILY Medical to monitor Branch blood glucose for ICD code E11.9 [place] 2020-09 Yes Check [facility] Device with 0-19 glucose ity o f Lancets 00:00: once a day [place] (ACCU-CHEK 00 or as Medical FASTCLIX directed, Branch LANCING ICD-10 DEV) Kit E11.9 ACCU-CHEK 2020-09 Yes USE 1 [facility] GUIDE TEST 0-19 STRIP ity o f STRIPS 00:00: DIRECTED [place] strip 00 ONCE DAILY Medical to monitor Branch blood glucose for ICD code E11.9 [place] 2020-09 Yes Check [facility] Device with 0-19 glucose ity o f Lancets 00:00: once a day [place] (ACCU-CHEK 00 or as Medical FASTCLIX directed, Branch LANCING ICD-10 DEV) Kit E11.9 ACCU-CHEK 2020-09 Yes USE 1 [facility] GUIDE TEST 0-19 STRIP ity o f STRIPS 00:00: DIRECTED [place] strip 00 ONCE DAILY Medical to monitor Branch blood glucose for ICD code E11.9 [place] 2020-09 Yes Check [facility] Device with 0-19 glucose ity o f Lancets 00:00: once a day [place] (ACCU-CHEK 00 or as Medical FASTCLIX directed, Branch LANCING ICD-10 DEV) Kit E11.9 ACCU-CHEK 2020-09 Yes USE 1 [facility] GUIDE TEST 0-19 STRIP ity o f STRIPS 00:00: DIRECTED [place] strip 00 ONCE DAILY Medical to monitor Branch blood glucose for ICD code E11.9 [place] 2020-09 Yes Check Univers Device with 0-19 glucose ity o f Lancets 00:00: [place] (ACCU-CHEK 00 or as Medical FASTCLIX directed, Branch LANCING ICD-10 DEV) Kit E11.9 ACCU-CHEK 2020-09 Yes USE 1 [facility] GUIDE TEST 0-19 STRIP ity o f STRIPS 00:00: DIRECTED [place] strip 00 ONCE DAILY Medical to monitor Branch blood glucose for ICD code E11.9 coenzyme Yes [id number] 100mg Take 1 U nivers Q10 8-24 capsule by ity of (COQ-10) 00:00: mouth [place] 100 mg 00 daily. Medical softgel Branch naproxen Yes [id number] 500mg Take 1 Un yudy 500 mg 8-24 tablet by ity of tablet 00:00: mouth 2 [place] 00 (two) Medical times Branch daily with meals as needed (pain). Use sparingly due to possible side effects. coenzyme Yes [id number] 100mg Take 1 U nivers Q10 8-24 capsule by ity of (COQ-10) 00:00: mouth [place] 100 mg 00 daily. Medical softgel Branch naproxen 2020-0 Yes [id number] 500mg Take 1 Un yudy 500 mg 8-24 tablet by ity of tablet 00:00: mouth 2 (two) Medical times Branch daily with meals as needed (pain). Use sparingly due to possible side effects. coenzyme 2020-0 Yes [id number] 100mg Take 1 U nivers Q10 8-24 capsule by ity of (COQ-10) 00:00: mouth [place] 100 mg 00 daily. Medical softgel Branch naproxen 2020-0 Yes [id number] 500mg Take 1 [facility] 500 mg 8-24 tablet by ity of tablet 00:00: mouth 2 (two) Medical times Branch daily with meals as needed (pain). Use sparingly due to possible side effects. coenzyme 2020-0 Yes [id number] 100mg Take 1 U nivers Q10 8-24 capsule by ity of (COQ-10) 00:00: mouth [place] 100 mg 00 daily. Medical softgel Branch naproxen 2020-0 Yes [id number] 500mg Take 1 Un yudy 500 mg 8-24 tablet by ity of tablet 00:00: mouth (two) Medical times Branch daily with meals as needed (pain). Use sparingly due to possible side effects. coenzyme 2020-0 Yes [id number] 100mg Take 1 U nivers Q10 8-24 capsule by ity of (COQ-10) 00:00: mouth [place] 100 mg 00 daily. Medical softgel Branch naproxen 2020-0 Yes [id number] 500mg Take 1 Un yudy 500 mg 8-24 tablet by ity of tablet 00:00: mouth 2 (two) Medical times Branch daily with meals as needed (pain). Use sparingly due to possible side effects. coenzyme 2020-0 Yes [id number] 100mg Take 1 U nivers Q10 8-24 capsule by ity of (COQ-10) 00:00: mouth [place] 100 mg 00 daily. Medical softgel Branch naproxen 2020-0 Yes [id number] 500mg Take 1 Un yudy 500 mg 8-24 tablet by ity of tablet 00:00: mouth 2 (two) Medical times Branch daily with meals as needed (pain). Use sparingly due to possible side effects. coenzyme 2020-0 Yes [id number] 100mg Take 1 U nivers Q10 8-24 capsule by ity of (COQ-10) 00:00: mouth [place] 100 mg 00 daily. Medical softgel Branch naproxen 2020-0 Yes [id number] 500mg Take 1 Un yudy 500 mg 8-24 tablet by ity of tablet 00:00: mouth 2 (two) Medical times Branch daily with meals as needed (pain). Use sparingly due to possible side effects. coenzyme 2020-0 Yes [id number] 100mg Take 1 U nivers Q10 8-24 capsule by ity of (COQ-10) 00:00: mouth [place] 100 mg 00 daily. Medical softgel Branch naproxen 0 Yes [id number] 500mg Take 1 [facility] 500 mg 8-24 tablet by ity of tablet 00:00: mouth (two) Medical times Branch daily with meals as needed (pain). Use sparingly due to possible side effects. coenzyme 2020-0 Yes [id number] 100mg Take 1 U nivers Q10 8-24 capsule by ity of (COQ-10) 00:00: mouth [place] 100 mg 00 daily. Medical softgel Branch naproxen 0 Yes [id number] 500mg Take 1 Un [facility]ud[facility] 500 mg 8-24 tablet by ity of tablet 00:00: mouth 2 (two) Medical times Branch daily with meals as needed (pain). Use sparingly due to possible side effects. coenzyme 2020-0 Yes [id number] 100mg Take 1 U nivers Q10 8-24 capsule by ity of (COQ-10) 00:00: mouth [place] 100 mg 00 daily. Medical softgel Branch naproxen 0 Yes [id number] 500mg Take 1 Un yud[facility] 500 mg 8-24 tablet by ity of tablet 00:00: mouth (two) Medical times Branch daily with meals as needed (pain). Use sparingly due to possible side effects. ACCU-CHEK Yes Use as Univer s GUIDE ME 7-19 directed ity of GLUCOSE MTR 00:00: for once a [place] [facility] 00 day Medical glucose Branch monitoring for E11.9 ACCU-CHEK Yes Use as Univer s GUIDE ME 7-19 directed ity of GLUCOSE MTR 00:00: for once a [place] [facility] 00 day Medical glucose Branch monitoring for E11.9 ACCU-CHEK 2021-0 Yes Use as Univer s GUIDE ME 7-19 directed ity of GLUCOSE MTR 00:00: for once a [place] [facility] 00 day Medical glucose Branch monitoring for E11.9 ACCU-CHEK 2021-0 Yes Use as Univer s GUIDE ME 7-19 directed ity of GLUCOSE MTR 00:00: for once a [place] [facility] 00 day Medical glucose Branch monitoring for E11.9 ACCU-CHEK 2021-0 Yes Use as Univer s GUIDE ME 7-19 directed ity of GLUCOSE MTR 00:00: for once a [facility] 00 day Medical glucose Branch monitoring for E11.9 ACCU-CHEK 2021-0 Yes Use as Univer s GUIDE ME 7-19 directed ity of GLUCOSE MTR 00:00: for once a [facility] 00 day Medical glucose Branch monitoring for E11.9 ACCU-CHEK 2021-0 Yes Use as Univer s GUIDE ME 7-19 directed ity of GLUCOSE MTR 00:00: for once a [facility] 00 day Medical glucose Branch monitoring for E11.9 ACCU-CHEK 2021-0 Yes Use as Univer s GUIDE ME 7-19 directed ity of GLUCOSE MTR 00:00: for once a [facility] 00 day Medical glucose Branch monitoring for E11.9 ACCU-CHEK 2021-0 Yes Use as Univer s GUIDE ME 7-19 directed ity of GLUCOSE MTR 00:00: for once a [facility] 00 day Medical glucose Branch monitoring for E11.9 ACCU-CHEK 2021-0 Yes Use as Univer s GUIDE OR 7-19 directed ity of GLUCOSE MTR 00:00: for once a [facility] 00 day Medical glucose Branch monitoring for E11.9 VITAMIN D3 2020-0 Yes 2000U Take 2,000 [facility] ORAL 7-06 Units by ity of 10:13: mouth [place] 13 daily. Medical Branch ZINC ORAL 2020-0 Yes 30mg Take 30 mg Un yudy 7-06 by mouth ity of 10:13: daily. [place] 13 Medical Branch VITAMIN D3 1-0 Yes 2000U Take 2,000 [facility] ORAL 7-06 Units by ity of 10:13: mouth [place] 13 daily. Medical Branch ZINC ORAL 2020-0 Yes 30mg Take 30 mg Un yudy 7-06 by mouth ity of 10:13: daily. [place] [address] Medical Branch VITAMIN D3 2021-0 Yes 2000U Take 2,000 [facility] ORAL 7-06 Units by ity of 10:13: mouth [place] 13 daily. Medical Branch ZINC ORAL 2021-0 Yes 30mg Take 30 mg Un yudy 7-06 by mouth ity of 10:13: daily. [place] Medical Branch VITAMIN D3 2021-0 Yes 2000U Take 2,000 [facility] ORAL 7-06 Units by ity of 10:13: mouth [place] 13 daily. Medical Branch ZINC ORAL 2021-0 Yes 30mg Take 30 mg Un yudy 7-06 by mouth ity of 10:13: daily. [place] [address] Medical Branch VITAMIN D3 1-0 Yes 2000U Take 2,000 [facility] ORAL 7-06 Units by ity of 10:13: mouth [place] 13 daily. Medical Branch ZINC ORAL 2021-0 Yes 30mg Take 30 mg Un yudy 7-06 by mouth ity of 10:13: daily. [place] [address] Medical Branch VITAMIN D3 2021-0 Yes 2000U Take 2,000 [facility] ORAL 7-06 Units by ity of 10:13: mouth [place] 13 daily. Medical Branch ZINC ORAL 1-0 Yes 30mg Take 30 mg Un yudy 7-06 by mouth ity of 10:13: daily. [place] Medical Branch VITAMIN D3 2021-0 Yes 2000U Take 2,000 [facility] ORAL 7-06 Units by ity of 10:13: mouth [place] 13 daily. Medical Branch ZINC ORAL 2021-0 Yes 30mg Take 30 mg Un yudy 7-06 by mouth ity of 10:13: daily. [place] Medical Branch VITAMIN D3 2021-0 Yes 2000U Take 2,000 [facility] ORAL 7-06 Units by ity of 10:13: mouth [place] 13 daily. Medical Branch ZINC ORAL 2021-0 Yes 30mg Take 30 mg Un yudy 7-06 by mouth ity of 10:13: daily. [place] [address] Medical Branch VITAMIN D3 2021-0 Yes 2000U Take 2,000 [facility] ORAL 7-06 Units by ity of 10:13: mouth [place] 13 daily. Medical Branch ZINC ORAL 2021-0 Yes 30mg Take 30 mg Un yudy 7-06 by mouth ity of 10:13: daily. [place] 13 Medical Branch VITAMIN D3 Yes 2000U Take 2,000 [facility] ORAL 7-06 Units by ity of 10:13: mouth [place] 13 daily. Medical Branch ZINC ORAL Yes 30mg Take 30 mg Un yudy 7-06 by mouth ity of 10:13: daily. [address] DULoxetine Yes TAKE 1 Unive rs 30 mg 6-26 CAPSULE BY ity of capsule 00:00: MOUTH ONCE [place] 00 DAILY FOR Medical 4 DAYS Branch THEN 2 ONCE DAILY THEREAFTER DULoxetine Yes TAKE 1 Unive rs 30 mg 6-26 CAPSULE BY ity of capsule 00:00: MOUTH ONCE [place] 00 DAILY FOR Medical 4 DAYS Branch THEN 2 ONCE DAILY THEREAFTER DULoxetine Yes TAKE 1 Unive rs 30 mg 6-26 CAPSULE BY ity of capsule 00:00: MOUTH ONCE [place] 00 DAILY FOR Medical 4 DAYS Branch THEN 2 ONCE DAILY THEREAFTER DULoxetine Yes TAKE 1 Unive rs 30 mg 6-26 CAPSULE BY ity of capsule 00:00: MOUTH ONCE [place] 00 DAILY FOR Medical 4 DAYS Branch THEN 2 ONCE DAILY THEREAFTER DULoxetine Yes TAKE 1 Unive rs 30 mg 6-26 CAPSULE BY ity of capsule 00:00: MOUTH ONCE [place] 00 DAILY FOR Medical 4 DAYS Branch THEN 2 ONCE DAILY THEREAFTER DULoxetine Yes TAKE 1 Unive rs 30 mg 6-26 CAPSULE BY ity of capsule 00:00: MOUTH ONCE [place] 00 DAILY FOR Medical 4 DAYS Branch THEN 2 ONCE DAILY THEREAFTER DULoxetine Yes TAKE 1 Unive rs 30 mg 6-26 CAPSULE BY ity of capsule 00:00: MOUTH ONCE [place] 00 DAILY FOR Medical 4 DAYS Branch THEN 2 ONCE DAILY THEREAFTER DULoxetine Yes TAKE 1 Unive rs 30 mg 6-26 CAPSULE BY ity of capsule 00:00: MOUTH ONCE [place] 00 DAILY FOR Medical 4 DAYS Branch THEN 2 ONCE DAILY THEREAFTER DULoxetine Yes TAKE 1 Unive rs 30 mg 6-26 CAPSULE BY ity of capsule 00:00: MOUTH ONCE [place] 00 DAILY FOR Medical 4 DAYS Branch THEN 2 ONCE DAILY THEREAFTER DULoxetine Yes TAKE 1 Unive rs 30 mg 6-26 CAPSULE BY ity of capsule 00:00: MOUTH ONCE [place] 00 DAILY FOR Medical 4 DAYS Branch THEN 2 ONCE DAILY THEREAFTER HYDROcodone 2020-0 Yes 1{tbl} Take 1 Un yudy -acetaminop 6-21 tablet by ity of hen 7.5-325 00:00: mouth 2 [place] mg per 00 (two) Medical tablet times Branch daily. HYDROcodone 2020-0 Yes 1{tbl} Take 1 Un yudy -acetaminop 6-21 tablet by ity of hen 7.5-325 00:00: mouth 2 [place] as mg per 00 (two) Medical tablet times Branch daily. HYDROcodone 2020-0 Yes 1{tbl} Take 1 Un yudy -acetaminop 6-21 tablet by ity of hen 7.5-325 00:00: mouth 2 [place] as mg per 00 (two) Medical tablet times Branch daily. HYDROcodone 2020-0 Yes 1{tbl} Take 1 Un yudy -acetaminop 6-21 tablet by ity of hen 7.5-325 00:00: mouth 2 [place] as mg per 00 (two) Medical tablet times Branch daily. HYDROcodone 2020-0 Yes 1{tbl} Take 1 Un yudy -acetaminop 6-21 tablet by ity of hen 7.5-325 00:00: mouth 2 [place] as mg per 00 (two) Medical tablet times Branch daily. HYDROcodone 2020-0 Yes 1{tbl} Take 1 Un yudy -acetaminop 6-21 tablet by ity of hen 7.5-325 00:00: mouth 2 [place] as mg per 00 (two) Medical tablet times Branch daily. HYDROcodone 2020-0 Yes 1{tbl} Take 1 Un yudy -acetaminop 6-21 tablet by ity of hen 7.5-325 00:00: mouth 2 [place] as mg per 00 (two) Medical tablet times Branch daily. HYDROcodone 2020-0 Yes 1{tbl} Take 1 Un yudy -acetaminop 6-21 tablet by ity of hen 7.5-325 00:00: mouth 2 [place] as mg per 00 (two) Medical tablet times Branch daily. HYDROcodone 2021-0 Yes 1{tbl} Take 1 Un yudy -acetaminop 6-21 tablet by ity of hen 7.5-325 00:00: mouth 2 [place] as mg per 00 (two) Medical tablet times Branch daily. HYDROcodone 0 Yes 1{tbl} Take 1 Un yudy -acetaminop 6-21 tablet by ity of hen 7.5-325 00:00: mouth 2 [place] as mg per 00 (two) Medical tablet times Branch daily. traZODONE Yes 200mg Take 200 Uni vers 100 mg 3-12 mg by ity of tablet 17:19: mouth at [place] [address] bedtime. Medical Branch glutamine 0 Yes Take by Unive rs (GLUTIMMUNE 3-12 mouth. ity of ORAL) 17:19: Medical Branch traZODONE 0 Yes 200mg Take 200 Uni vers 100 mg 3-12 mg by ity of tablet 17:19: mouth at [place] [address] bedtime. Medical Branch glutamine 0 Yes Take by Unive rs (GLUTIMMUNE 3-12 mouth. ity of ORAL) 17:19: Medical Branch traZODONE 2020-0 Yes 200mg Take 200 Uni vers 100 mg 3-12 mg by ity of tablet 17:19: mouth at [place] [address] bedtime. Medical Branch glutamine 0 Yes Take by Unive rs (GLUTIMMUNE 3-12 mouth. ity of ORAL) 17:19: Medical Branch traZODONE 2020-0 Yes 200mg Take 200 Uni vers 100 mg 3-12 mg by ity of tablet 17:19: mouth at [place] [address] bedtime. Medical Branch glutamine 2020-0 Yes Take by Unive rs (GLUTIMMUNE 3-12 mouth. ity of ORAL) 17:19: Medical Branch traZODONE 2020-0 Yes 200mg Take 200 Uni vers 100 mg 3-12 mg by ity of tablet 17:19: mouth at [place] [address] bedtime. Medical Branch glutamine 0 Yes Take by Unive rs (GLUTIMMUNE 3-12 mouth. ity of ORAL) 17:19: Medical Branch traZODONE 2020-0 Yes 200mg Take 200 Uni vers 100 mg 3-12 mg by ity of tablet 17:19: mouth at [place] [address] bedtime. Medical Branch glutamine 2020-0 Yes Take by Unive rs (GLUTIMMUNE 3-12 mouth. ity of ORAL) 17:19: Medical Branch traZODONE 2020-0 Yes 200mg Take 200 Uni vers 100 mg 3-12 mg by ity of tablet 17:19: mouth at [place] 00 bedtime. Medical Branch glutamine Yes Take by Unive rs (GLUTIMMUNE 3-12 mouth. ity of ORAL) 17:19: Medical Branch traZODONE Yes 200mg Take 200 Uni vers 100 mg 3-12 mg by ity of tablet 17:19: mouth at [place] 00 bedtime. Medical Branch glutamine Yes Take by Unive rs (GLUTIMMUNE 3-12 mouth. ity of ORAL) 17:19: Medical Branch traZODONE Yes 200mg Take 200 Uni vers 100 mg 3-12 mg by ity of tablet 17:19: mouth at [place] 00 bedtime. Medical Branch glutamine Yes Take by Unive rs (GLUTIMMUNE 3-12 mouth. ity of ORAL) 17:19: Medical Branch traZODONE Yes 200mg Take 200 Uni vers 100 mg 3-12 mg by ity of tablet 17:19: mouth at [place] 00 bedtime. Medical Branch glutamine Yes Take by Unive rs (GLUTIMMUNE 3-12 mouth. ity of ORAL) 17:19: Medical Branch CALCIUM Yes [facility] CITRATE, 3-12 ity of BULK, MISC 17:16: [address] ALPRAZolam Yes 1mg Take 1 mg Un yudy 1 mg tablet 3-12 by mouth 2 it y of 17:16: (two) [place] 38 times Medical daily as Branch needed (anxiety). aspirin 81 0 Yes 81mg Take 81 mg U nivers mg EC 3-12 by mouth ity of tablet 17:16: daily. [address] CALCIUM 0 Yes Univers CITRATE, 3-12 ity of BULK, MISC 17:16: [address] ALPRAZolam Yes 1mg Take 1 mg Un yudy 1 mg tablet 3-12 by mouth 2 it y of 17:16: (two) [place] 38 times Medical daily as Branch needed (anxiety). aspirin 81 2020-0 Yes 81mg Take 81 mg U nivers mg EC 3-12 by mouth ity of tablet 17:16: daily. [address] CALCIUM 2020-0 Yes Univers CITRATE, 3-12 ity of BULK, MISC 17:16: [address] ALPRAZolam 0 Yes 1mg Take 1 mg Un yudy 1 mg tablet 3-12 by mouth 2 it y of 17:16: (two) [place] 38 times Medical daily as Branch needed (anxiety). aspirin 81 2020-0 Yes 81mg Take 81 mg U nivers mg EC 3-12 by mouth ity of tablet 17:16: daily. [address] CALCIUM 0 Yes Univers CITRATE, 3-12 ity of BULK, MISC 17:16: [address] ALPRAZolam 2020-0 Yes 1mg Take 1 mg Un yudy 1 mg tablet 3-12 by mouth 2 it y of 17:16: (two) [place] 38 times Medical daily as Branch needed (anxiety). aspirin 81 2020-0 Yes 81mg Take 81 mg U nivers mg EC 3-12 by mouth ity of tablet 17:16: daily. [address] CALCIUM 2020-0 Yes Univers CITRATE, 3-12 ity of BULK, MISC 17:16: [address] ALPRAZolam 2020-0 Yes 1mg Take 1 mg Un yudy 1 mg tablet 3-12 by mouth 2 it y of 17:16: (two) [place] 38 times Medical daily as Branch needed (anxiety). aspirin 81 2020-0 Yes 81mg Take 81 mg U nivers mg EC 3-12 by mouth ity of tablet 17:16: daily. [address] CALCIUM 2020-0 Yes Univers CITRATE, 3-12 ity of BULK, MISC 17:16: [address] ALPRAZolam 2020-0 Yes 1mg Take 1 mg Un yudy 1 mg tablet 3-12 by mouth 2 it y of 17:16: (two) [place] 38 times Medical daily as Branch needed (anxiety). aspirin 81 2020-0 Yes 81mg Take 81 mg U nivers mg EC 3-12 by mouth ity of tablet 17:16: daily. [address] CALCIUM 2020-0 Yes Univers CITRATE, 3-12 ity of BULK, MISC 17:16: [address] ALPRAZolam 2020-0 Yes 1mg Take 1 mg Un yudy 1 mg tablet 3-12 by mouth 2 it y of 17:16: (two) [place] 38 times Medical daily as Branch needed (anxiety). aspirin 81 2020-0 Yes 81mg Take 81 mg U nivers mg EC 3-12 by mouth ity of tablet 17:16: daily. [place] [address] Medical Branch CALCIUM 2020-0 Yes Univers CITRATE, 3-12 ity of BULK, MISC 17:16: [address] Branch ALPRAZolam 2020-0 Yes 1mg Take 1 mg Un yudy 1 mg tablet 3-12 by mouth 2 it y of 17:16: (two) [place] [address] times Medical daily as Branch needed (anxiety). aspirin 81 2020-0 Yes 81mg Take 81 mg U nivers mg EC 3-12 by mouth ity of tablet 17:16: daily. [address] Branch CALCIUM 2020-0 Yes Univers CITRATE, 3-12 ity of BULK, MISC 17:16: [address] Branch ALPRAZolam 2020-0 Yes 1mg Take 1 mg Un yudy 1 mg tablet 3-12 by mouth 2 it y of 17:16: (two) [place] [address] times Medical daily as Branch needed (anxiety). aspirin 81 2020-0 Yes 81mg Take 81 mg U nivers mg EC 3-12 by mouth ity of tablet 17:16: daily. [address] Branch CALCIUM 2020-0 Yes Univers CITRATE, 3-12 ity of BULK, MISC 17:16: [address] Branch ALPRAZolam 2020-0 Yes 1mg Take 1 mg Un yudy 1 mg tablet 3-12 by mouth 2 it y of 17:16: (two) [place] [address] times Medical daily as Branch needed (anxiety). aspirin 81 2020-0 Yes 81mg Take 81 mg U nivers mg EC 3-12 by mouth ity of tablet 17:16: daily. [address] Branch TOPIRAMATE 2020-0 Yes [id number] 25mg TAKE 1-2 [facility] 25 mg 1-19 TABLETS BY ity of tablet 00:00: MOUTH [place] 00 DAILY. FOR Medical MIGRAINE Branch PREVENTION . TOPIRAMATE 2020-0 Yes [id number] 25mg TAKE 1-2 [facility] 25 mg 1-19 TABLETS BY ity of tablet 00:00: MOUTH [place] 00 DAILY. FOR Medical MIGRAINE Branch PREVENTION . TOPIRAMATE 2020-0 Yes [id number] 25mg TAKE 1-2 [facility] 25 mg 1-19 TABLETS BY ity of tablet 00:00: MOUTH [place] 00 DAILY. FOR Medical MIGRAINE Branch PREVENTION . TOPIRAMATE 2020-0 Yes [id number] 25mg TAKE 1-2 [facility] 25 mg 1-19 TABLETS BY ity of tablet 00:00: MOUTH [place] 00 DAILY. FOR Medical MIGRAINE Branch PREVENTION . TOPIRAMATE 2020-0 Yes [id number] 25mg TAKE 1-2 [facility] 25 mg 1-19 TABLETS BY ity of tablet 00:00: MOUTH [place] 00 DAILY. FOR Medical MIGRAINE Branch PREVENTION . TOPIRAMATE 2020-0 Yes [id number] 25mg TAKE 1-2 [facility] 25 mg 1-19 TABLETS BY ity of tablet 00:00: MOUTH [place] 00 DAILY. FOR Medical MIGRAINE Branch PREVENTION . TOPIRAMATE 2020-0 Yes [id number] 25mg TAKE 1-2 [facility] 25 mg 1-19 TABLETS BY ity of tablet 00:00: MOUTH [place] 00 DAILY. FOR Medical MIGRAINE Branch PREVENTION . TOPIRAMATE 2020-0 Yes [id number] 25mg TAKE 1-2 [facility] 25 mg 1-19 TABLETS BY ity of tablet 00:00: MOUTH [place] 00 DAILY. FOR Medical MIGRAINE Branch PREVENTION . TOPIRAMATE 2020-0 Yes [id number] 25mg TAKE 1-2 [facility] 25 mg 1-19 TABLETS BY ity of tablet 00:00: MOUTH [place] 00 DAILY. FOR Medical MIGRAINE Branch PREVENTION . TOPIRAMATE 2020-0 Yes [id number] 25mg TAKE 1-2 [facility] 25 mg 1-19 TABLETS BY ity of tablet 00:00: MOUTH [place] 00 DAILY. FOR Medical MIGRAINE Branch PREVENTION . metformin 2020- Yes [id number] 500mg Take 1 [facility] ER 500 mg 2-08 tablet by ity o f 24 hr 00:00: mouth 2 [place] tablet 00 (two) Medical times Branch daily with meals. metformin 2020- Yes [id number] 500mg Take 1 [facility] ER 500 mg 2-08 tablet by ity o f 24 hr 00:00: mouth 2 [place] tablet 00 (two) Medical times Branch daily with meals. metformin 2020- Yes [id number] 500mg Take 1 [facility] ER 500 mg 2-08 tablet by ity o f 24 hr 00:00: mouth 2 [place] tablet 00 (two) Medical times Branch daily with meals. metformin 2019- Yes [id number] 500mg Take 1 [facility] ER 500 mg 2-08 tablet by ity o f 24 hr 00:00: mouth 2 [place] tablet 00 (two) Medical times Branch daily with meals. metformin 2020-1 Yes [id number] 500mg Take 1 [facility] ER 500 mg 2-08 tablet by ity o f 24 hr 00:00: mouth 2 [place] tablet 00 (two) Medical times Branch daily with meals. metformin 2020-1 Yes [id number] 500mg Take 1 [facility] ER 500 mg 2-08 tablet by ity o f 24 hr 00:00: mouth 2 [place] tablet 00 (two) Medical times Branch daily with meals. metformin 2020-1 Yes [id number] 500mg Take 1 [facility] ER 500 mg 2-08 tablet by ity o f 24 hr 00:00: mouth 2 [place] tablet 00 (two) Medical times Branch daily with meals. metformin 2020-1 Yes [id number] 500mg Take 1 [facility] ER 500 mg 2-08 tablet by ity o f 24 hr 00:00: mouth 2 [place] tablet 00 (two) Medical times Branch daily with meals. metformin 2020-1 Yes [id number] 500mg Take 1 [facility] ER 500 mg 2-08 tablet by ity o f 24 hr 00:00: mouth 2 [place] tablet 00 (two) Medical times Branch daily with meals. metformin 2020-1 Yes [id number] 500mg Take 1 [facility] ER 500 mg 2-08 tablet by ity o f 24 hr 00:00: mouth 2 [place] tablet 00 (two) Medical times Branch daily with meals. gabapentin 2020-1 Yes 400mg Take 400 Un yudy 400 mg 2-07 mg by ity of capsule 00:00: mouth 3 (three) Medical times Branch daily. gabapentin 2020-1 Yes 400mg Take 400 Un yudy 400 mg 2-07 mg by ity of capsule 00:00: mouth (three) Medical times Branch daily. gabapentin 2020-1 Yes 400mg Take 400 Un yudy 400 mg 2-07 mg by ity of capsule 00:00: mouth 3 (three) Medical times Branch daily. gabapentin 2020-1 Yes 400mg Take 400 Un yudy 400 mg 2-07 mg by ity of capsule 00:00: mouth 3 (three) Medical times Branch daily. gabapentin 2020-1 Yes 400mg Take 400 Un yudy 400 mg 2-07 mg by ity of capsule 00:00: mouth 3 (three) Medical times Branch daily. gabapentin 2020-1 Yes 400mg Take 400 Un yudy 400 mg 2-07 mg by ity of capsule 00:00: mouth 3 00 (three) Medical times Branch daily. gabapentin 2020-1 Yes 400mg Take 400 Un yudy 400 mg 2-07 mg by ity of capsule 00:00: mouth 3 00 (three) Medical times Branch daily. gabapentin 2020-1 Yes 400mg Take 400 Un yudy 400 mg 2-07 mg by ity of capsule 00:00: mouth 3 00 (three) Medical times Branch daily. gabapentin 2020-1 Yes 400mg Take 400 Un yudy 400 mg 2-07 mg by ity of capsule 00:00: mouth 3 00 (three) Medical times Branch daily. gabapentin 2020-1 Yes 400mg Take 400 Un yudy 400 mg 2-07 mg by ity of capsule 00:00: mouth 3 (three) Medical times Branch daily. budesonide- 2020-0 Yes [id number] 2{puff} Inhale 2 Univers formoteroL 7-31 Puffs 2 ity of (SYMBICORT) 00:00: (two) [place] 160-4.5 00 times Medical mcg/actuati daily. Branch on inhaler Rinse mouth after each use. budesonide- 2020-0 Yes [id number] 2{puff} Inhale 2 [facility] formoteroL 7-31 Puffs 2 ity of (SYMBICORT) 00:00: (two) [place] 160-4.5 00 times Medical mcg/actuati daily. Branch on inhaler Rinse mouth after each use. budesonide- 2020-0 Yes [id number] 2{puff} Inhale 2 [facility] formoteroL 7-31 Puffs 2 ity of (SYMBICORT) 00:00: (two) [place] 160-4.5 00 times Medical mcg/actuati daily. Branch on inhaler Rinse mouth after each use. budesonide- 2020-0 Yes [id number] 2{puff} Inhale 2 [facility] formoteroL 7-31 Puffs 2 ity of (SYMBICORT) 00:00: (two) [place] 160-4.5 00 times Medical mcg/actuati daily. Branch on inhaler Rinse mouth after each use. budesonide- 2020-0 Yes [id number] 2{puff} Inhale 2 [facility] formoteroL 7-31 Puffs 2 ity of (SYMBICORT) 00:00: (two) [place] 160-4.5 00 times Medical mcg/actuati daily. Branch on inhaler Rinse mouth after each use. budesonide- 2020-0 Yes [id number] 2{puff} Inhale 2 [facility] formoteroL 7-31 Puffs 2 ity of (SYMBICORT) 00:00: (two) [place] 160-4.5 00 times Medical mcg/actuati daily. Branch on inhaler Rinse mouth after each use. budesonide- 2020-0 Yes [id number] 2{puff} Inhale 2 [facility] formoteroL 7-31 Puffs 2 ity of (SYMBICORT) 00:00: (two) [place] 160-4.5 00 times Medical mcg/actuati daily. Branch on inhaler Rinse mouth after each use. budesonide- 2020-0 Yes [id number] 2{puff} Inhale 2 [facility] formoteroL 7-31 Puffs 2 ity of (SYMBICORT) 00:00: (two) [place] 160-4.5 00 times Medical mcg/actuati daily. Branch on inhaler Rinse mouth after each use. budesonide- 2020-0 Yes [id number] 2{puff} Inhale 2 [facility] formoteroL 7-31 Puffs 2 ity of (SYMBICORT) 00:00: (two) [place] 160-4.5 00 times Medical mcg/actuati daily. Branch on inhaler Rinse mouth after each use. budesonide- 2020-0 Yes [id number] 2{puff} Inhale 2 [facility] formoteroL 7-31 Puffs 2 ity of (SYMBICORT) 00:00: (two) [place] 160-4.5 00 times Medical mcg/actuati daily. Branch on inhaler Rinse mouth after each use. albuterol 2020-0 Yes [id number] 2{puff} Inhale 2 [facility] (PROAIR 7-29 Puffs ity of HFA) 90 00:00: every 6 [place] mcg/actuati 00 (six) Medical on inhaler hours as Branc h needed for Wheezing or Shortness of Breath. albuterol 2020-0 Yes [id number] 2{puff} Inhale 2 [facility] (PROAIR 7-29 Puffs ity of HFA) 90 00:00: every 6 [place] mcg/actuati 00 (six) Medical on inhaler hours as Branc h needed for Wheezing or Shortness of Breath. albuterol 2020-0 Yes [id number] 2{puff} Inhale 2 [facility] (PROAIR 7-29 Puffs ity of HFA) 90 00:00: every 6 [place] mcg/actuati 00 (six) Medical on inhaler hours as Branc h needed for Wheezing or Shortness of Breath. albuterol 2020-0 Yes [id number] 2{puff} Inhale 2 Univers (PROAIR 7-29 Puffs ity of HFA) 90 00:00: every 6 [place] mcg/actuati 00 (six) Medical on inhaler hours as Branc h needed for Wheezing or Shortness of Breath. albuterol 2020-0 Yes [id number] 2{puff} Inhale 2 Univers (PROAIR 7-29 Puffs ity of HFA) 90 00:00: every 6 [place] mcg/actuati 00 (six) Medical on inhaler hours as Branc h needed for Wheezing or Shortness of Breath. albuterol 2020-0 Yes [id number] 2{puff} Inhale 2 Univers (PROAIR 7-29 Puffs ity of HFA) 90 00:00: every 6 [place] mcg/actuati 00 (six) Medical on inhaler hours as Branc h needed for Wheezing or Shortness of Breath. albuterol 2020-0 Yes [id number] 2{puff} Inhale 2 Univers (PROAIR 7-29 Puffs ity of HFA) 90 00:00: every 6 [place] mcg/actuati 00 (six) Medical on inhaler hours as Branc h needed for Wheezing or Shortness of Breath. albuterol 2020-0 Yes [id number] 2{puff} Inhale 2 Univers (PROAIR 7-29 Puffs ity of HFA) 90 00:00: every 6 [place] mcg/actuati 00 (six) Medical on inhaler hours as Branc h needed for Wheezing or Shortness of Breath. albuterol 2020-0 Yes [id number] 2{puff} Inhale 2 Univers (PROAIR 7-29 Puffs ity of HFA) 90 00:00: every 6 [place] mcg/actuati 00 (six) Medical on inhaler hours as Branc h needed for Wheezing or Shortness of Breath. albuterol 2020-0 Yes [id number] 2{puff} Inhale 2 Univers (PROAIR 7-29 Puffs ity of HFA) 90 00:00: every 6 [place] mcg/actuati 00 (six) Medical on inhaler hours as Branc h needed for Wheezing or Shortness of Breath. Depakote 2018-09 No 300 mg, Memori a 0-21 Route: PO, l 14:00: Daily, Dosing Weight 81.636, kg, Start date: 07/19/19 9:00:00 CDT, Duration: 30 day, Stop date: 08/17/19 9:00:00 [employer] Depakote 2018-09 No 300 mg, Memori a 0-21 Route: PO, l 14:00: Daily, Dosing Weight 81.636, kg, Start date: 07/19/19 9:00:00 CDT, Duration: 30 day, Stop date: 08/17/19 9:00:00 [employer] Depakote 2018-09 Yes 300 mg, Memori a 0-20 PO, Daily, l 19:05: 0 Refill(s) Depakote 2018-09 Yes 300 mg, Memori a 0-20 PO, Daily, l 19:05: 0 Refill(s) Flexeril 2018-09 No Notes: Memoria 0-20 Same as l 14:39: Flexeril Flexeril 2018-09 No Notes: Memoria 0-20 Same as l 14:39: Flexeril Depakote 2018-09 No 300 mg, Memori a 0-20 Route: PO, l 14:00: Daily, Dosing Weight 75, kg, Start date: 07/18/19 9:00:00 CDT, Duration: 30 day, Stop date: 08/16/19 9:00:00 [employer] Sertraline 2018-09 No Notes: Memor ia 0-20 (Same as: l 14:00: Zoloft) Depakote 2018-09 No 300 mg, Memori a 0-20 Route: PO, l 14:00: Daily, Dosing Weight 75, kg, Start date: 07/18/19 9:00:00 CDT, Duration: 30 day, Stop date: 08/16/19 9:00:00 [employer] Sertraline 2018-09 No Notes: Memor ia 0-20 (Same as: l 14:00: Zoloft) Memo 00 pantoprazol 2018-09 No Notes: Celestino sae e 0-20 Tablet l 12:30: should not [place] 00 be chewed or crushed. (Same as: Protonix) pantoprazol 2018-09 No Notes: Celestino sae e 0-20 Tablet l 12:30: should not [place] 00 be chewed or crushed. (Same as: Protonix) albuterol 2018-09 No Notes: SEE Me moria 0-20 RT l 00:00: DOCUMENTAT Memo 00 ION (Same as: Proventil) albuterol 2018-09 No Notes: SEE Me moria 0-20 RT l 00:00: DOCUMENTAT Memo 00 ION (Same as: Proventil) Pulmicort 2018-09 No Notes: Memori a Respules 0-19 (Same As: l 22:05: Pulmicort) [place] 00 Pulmicort 2018-09 No Notes: Memori a Respules 0-19 (Same As: l 22:05: Pulmicort) [place] Alprazolam 2018-09 No Notes: Memor ia 1 MG Oral 0-19 With food l Tablet 22:00: or milk [place] [Xanax] 00 (Same as: Xanax) Advair 2018-09 No 1 puff, Memoria Diskus 250 0-19 Route: l mcg-50 mcg 22:00: INHALATION H ermann inhalation 00 , Drug powder Form: AERO, Dosing Weight 75, kg, BID, Start date: 07/17/19 17:00:00 CDT, Duration: 30 day, Stop date: 08/16/19 9:00:00 [employer] Lyrica 2018-09 No Notes: Memoria 0-19 (Same as: l 22:00: Lyrica) [place] 00 Alprazolam 2018-09 No Notes: Memor ia 1 MG Oral 0-19 With food l Tablet 22:00: or milk [place] [Xanax] 00 (Same as: Xanax) Advair 2018-09 No 1 puff, Memoria Diskus 250 0-19 Route: l mcg-50 mcg 22:00: INHALATION H ermann inhalation 00 , Drug powder Form: AERO, Dosing Weight 75, kg, BID, Start date: 07/17/19 17:00:00 CDT, Duration: 30 day, Stop date: 08/16/19 9:00:00 [employer] Lyrica 2018-09 No Notes: Memoria 0-19 (Same as: l 22:00: Lyrica) Sertraline 2018-09 Yes 200 mg, Celestino sae 0-19 PO, Daily, l 20:15: 0 Refill(s) Lyrica 2018-09 Yes 75 mg, PO, Memor ia 0-19 BID, 0 l 20:15: Refill(s) Metformin 2018-09 Yes 500 mg, Memor ia 0-19 PO, BID, 0 l 20:15: Refill(s) Sertraline 2018-09 Yes 200 mg, Celestino sae 0-19 PO, Daily, l 20:15: 0 Refill(s) Lyrica 2018-09 Yes 75 mg, PO, Memor ia 0-19 BID, 0 l 20:15: Refill(s) Metformin 2018-09 Yes 500 mg, Memor ia 0-19 PO, BID, 0 l 20:15: Refill(s) Lovenox 2018-09 No Notes: Memoria 0-19 (Same as: l 20:00: Lovenox) Lovenox 2018-09 No Notes: Memoria 0-19 (Same as: l 20:00: Lovenox) Aspirin 325 2018-09 No 1 cap, Celestino sae MG / 0-19 Route: PO, l butalbital 19:32: Drug Form: H ermann 50 MG / 00 CAP, Caffeine 40 Dosing MG Oral Weight 75, Capsule kg, Q6H, [Fiorinal] PRN Headache 6-10, Start date: 07/17/19 14:32:00 CDT, Duration: 30 day, Stop date: 08/16/19 14:31:00 [employer] Aspirin 325 2018-09 No 1 cap, Celestino sae MG / 0-19 Route: PO, l butalbital 19:32: Drug Form: H ermann 50 MG / 00 CAP, Caffeine 40 Dosing MG Oral Weight 75, Capsule kg, Q6H, [Fiorinal] PRN Headache 6-10, Start date: 07/17/19 14:32:00 CDT, Duration: 30 day, Stop date: 08/16/19 14:31:00 [employer] Zofran 2018-09 No Notes: Memoria 0-19 (Same as: l 19:27: Zofran) [place] 00 MEDICATION WASTE Product Size: 4 mg Product Wasted: ___ mg Morphine 2018-09 No 2 mg, 1 Memori a 0-19 mL, Route: l 19:27: IVP, Drug Memo form: SOLN, Q4H, Dosing Weight 75, kg, PRN Pain Score 7-10, Start date: 07/17/19 14:27:00 CDT, Duration: 30 day, Stop date: 08/16/19 14:26:00 [employer], 0 ketOROLAC 2018-09 No 4 days Memor ia 15 mg/mL l injectable 19:27: MEDICATION H ermann solution 00 WASTE Product Size: 30 mg Product Wasted: ___ mg Reglan 2018-09 No Notes: Memoria 0-19 (Same as: l 19:27: Reglan) [place] 00 NS 1,000 mL 2018-09 No 1,000 mL, M emoria - Rate: 75 l 19:27: ml/hr, [place] 00 Infuse over: 13.3 hr, Route: IV, Dosing Weight 75 kg, Total Volume: 1,000, Start date: 07/17/19 14:27:00 CDT, Duration: 30 day, Stop date: 08/16/19 14:26:00 [employer], 1.85, m2, 0 Zofran 2018-09 No Notes: Memoria 0-19 (Same as: l 19:27: Zofran) [place] 00 MEDICATION WASTE Product Size: 4 mg Product Wasted: ___ mg Morphine 2018-09 No 2 mg, 1 Memori a 0-19 mL, Route: l 19:27: IVP, Drug [place] 00 form: SOLN, Q4H, Dosing Weight 75, kg, PRN Pain Score 7-10, Start date: 07/17/19 14:27:00 CDT, Duration: 30 day, Stop date: 08/16/19 14:26:00 [employer], 0 ketOROLAC 2018-09 No 4 days Memor ia 15 mg/mL l injectable 19:27: MEDICATION H ermann solution WASTE Product Size: 30 mg Product Wasted: ___ mg Reglan 2018-09 No Notes: Memoria 0-19 (Same as: l 19:27: Reglan) NS 1,000 mL 2018-09 No 1,000 mL, M emoria 0- Rate: 75 l 19:27: ml/hr, Infuse over: 13.3 hr, Route: IV, Dosing Weight 75 kg, Total Volume: 1,000, Start date: 07/17/19 14:27:00 CDT, Duration: 30 day, Stop date: 08/16/19 14:26:00 [employer], 1.85, m2, 0 Dextrose 2018-09 No 12.5 gm, Memor ia 50% Syringe 0- 25 mL, l 19:26: Route: IVP, Drug Form: INJ, Dosing Weight 75, kg, PRN, PRN Blood Glucose Results, Start date: 07/17/19 14:26:00 CDT, Duration: 30 day, Stop date: 08/16/19 13:25:00 [employer], 0 Glucagon 2018-09 No 1 mg, Memoria Route: IM, l 19:26: Drug form: PDR/INJ, PRN, Dosing Weight 75, kg, PRN Blood Glucose Results, Start date: 07/17/19 14:26:00 CDT, Duration: 30 day, Stop date: 08/16/19 13:25:00 [employer], 0 Melatonin 2018-09 No Notes: Memori a 0-19 (Same as: l 19:26: Melatonin) Acetaminoph 2018-09 No Notes: Do M emoria en 0- not exceed l 19:26: 4 gm/day. (Same as: Tylenol) Dextrose 2018-09 No 12.5 gm, Memor ia 50% Syringe 0-19 25 mL, l 19:26: Route: IVP, Drug Form: INJ, Dosing Weight 75, kg, PRN, PRN Blood Glucose Results, Start date: 07/17/19 14:26:00 CDT, Duration: 30 day, Stop date: 08/16/19 13:25:00 [employer], 0 Glucagon 2018-09 No 1 mg, Memoria 0-19 Route: IM, l 19:26: Drug form: PDR/INJ, PRN, Dosing Weight 75, kg, PRN Blood Glucose Results, Start date: 07/17/19 14:26:00 CDT, Duration: 30 day, Stop date: 08/16/19 13:25:00 [employer], 0 Melatonin 2018-09 No Notes: Memori a 0-19 (Same as: l 19:26: Melatonin) Acetaminoph 2018-09 No Notes: Do M emoria en 0-19 not exceed l 19:26: 4 gm/day. (Same as: Tylenol) Ativan 2018-09 No Notes: Memoria 0-19 (Same as: l 18:54: Ativan) Ativan 2018-09 No Notes: Memoria 0-19 (Same as: l 18:54: Ativan) valproic 2018-09 No Notes: Memoria acid + 0-19 Dilute in l Sodium 18:34: at least Memo Chloride 00 50ml D5W 0.9% IV 50 or NS. mL Infusion rate = 20 mg/min (Same As: Depacon) valproic 2018-09 No Notes: Memoria acid + 0-19 Dilute in l Sodium 18:34: at least [place] Chloride 00 50ml D5W 0.9% IV 50 or NS. mL Infusion rate = 20 mg/min (Same As: Depacon) Depakote 2018-09 No 300 mg, Memori a 0-19 Route: IV, l 18:23: ONCE, Dosing Weight 75, kg, Start date: 07/17/19 13:23:00 CDT, Stop date: 07/17/19 13:23:00 CDT Depakote 2018-09 No 300 mg, Memori a 0-19 Route: IV, l 18:23: ONCE, Dosing Weight 75, kg, Start date: 07/17/19 13:23:00 CDT, Stop date: 07/17/19 13:23:00 CDT Fentanyl 2018-09 No Notes: Memoria 0-19 (Same as: l 17:29: Sublimaze) [place] 00 Preservati ve free. Fentanyl 2018-09 No Notes: Memoria 0-19 (Same as: l 17:29: Sublimaze) Memo 00 Preservati ve free. Ativan 2018-09 No 1 mg, Memoria 0-19 Route: l 17:02: IVP, Drug Memo 00 form: INJ, ONCE, Dosing Weight 75, kg, Priority: STAT, Start date: 07/17/19 12:02:00 CDT, Stop date: 07/17/19 12:02:00 CDT Ativan 2018-09 No 1 mg, Memoria 0-19 Route: l 17:02: IVP, Drug Memo 00 form: INJ, ONCE, Dosing Weight 75, kg, Priority: STAT, Start date: 07/17/19 12:02:00 CDT, Stop date: 07/17/19 12:02:00 CDT Saline 2018-09 No Notes: Memoria Flush 0.9% 0-19 Same as: l 15:51: BD Memo 00 Posiflush Sterile Saline 2018-09 No Notes: Memoria Flush 0.9% 0-19 Same as: l 15:51: BD Memo 00 Posiflush Sterile Immunizations Ordered Filled Immunization Date Status Comments [facility] Immunization Name Name Daptacel DTAP 2021-02-07 Completed [facility] 00:00:00 [facility] [place] Daptacel DTAP 2021-02-07 Completed [facility] of 00:00:00 [facility] [place] Daptacel DTAP 2021-02-07 Completed [facility] of 00:00:00 [facility] [place] Daptacel DTAP 2021-02-07 Completed [facility] of 00:00:00 [facility] [place] Daptacel DTAP 2021-02-07 Completed [facility] of 00:00:00 [facility] [place] Daptacel DTAP 2021-02-07 Completed [facility] of 00:00:00 [facility] [place] Daptacel DTAP 2021-02-07 Completed [facility] of 00:00:00 [facility] [place] Daptacel DTAP 2021-02-07 Completed [facility] of 00:00:00 [facility] [place] Daptacel DTAP 2021-02-07 Completed [facility] of 00:00:00 [facility] [place] Daptacel DTAP 2021-02-07 Completed [facility] of 00:00:00 [facility] [place] Td 2020-02-01 Completed [facility] 00:00:00 [facility] Td 2020-02-01 Completed [facility] 00:00:00 [facility] Td 2020-02-01 Completed [facility] 00:00:00 [facility] Td 2020-02-01 Completed [facility] 00:00:00 [facility] Td 2020-02-01 Completed [facility] 00:00:00 [facility] Td 2020-02-01 Completed [facility] 00:00:00 [facility] Td 2020-02-01 Completed [facility] 00:00:00 [facility] Td 2020-02-01 Completed [facility] 00:00:00 [facility] Td 2020-02-01 Completed [facility] of 00:00:00 [facility] Td 2020-02-01 Completed University of 00:00:00 [facility] [place] Vital Signs Vital Name Observation Time Observation Value Comments Source Systolic blood 2022-04-24 15:39:00 104 mm[Hg] Univer sity of pressure [facility] [place] Diastolic blood 2022-04-24 15:39:00 70 mm[Hg] Unive rsity of [facility] Heart rate 2022-04-24 15:39:00 65 /min [facility] Body temperature 2022-04-24 15:39:00 [facility].89 [facility] height 2022-04-24 15:39:00 160 cm [facility] Body weight 2022-04-24 15:39:00 75.841 kg [facility] BMI 2022-04-24 15:39:00 29.62 kg/m2 [facility] Diastolic (mm Hg) 2019-07-18 17:00:00 Mem orial Memo Temperature Oral (F) 2019-07-18 17:00:00 98.1 F [facility] Heart Rate 2019-07-18 17:00:00 [facility] Respitory Rate 2019-07-18 17:00:00 Memori al [place] Systolic (mm Hg) 2019-07-18 17:00:00 Celestino rial [place] Height 2019-07-18 16:29:00 160.02 cm [facility] Weight 2019-07-18 16:29:00 [facility] [place] BMI Calculated 2019-07-18 16:29:00 Memori al [place] Temperature Oral (F) 2019-07-18 13:11:00 98.3 F [facility] Heart Rate 2019-07-18 13:11:00 [facility] Respitory Rate 2019-07-18 13:11:00 Memori al Memo Systolic (mm Hg) 2019-07-18 13:11:00 Celestino rial Memo Diastolic (mm Hg) 2019-07-18 13:11:00 Mem orial [place] Respitory Rate 2019-07-18 11:11:00 Memori al [place] Temperature Oral (F) 2019-07-18 08:51:00 98.0 F [facility] [place] Heart Rate 2019-07-18 08:51:00 [facility] [place] Systolic (mm Hg) 2019-07-18 08:51:00 Celestino rial Memo Diastolic (mm Hg) 2019-07-18 08:51:00 Mem orial [place] Procedures Procedure Date / Time Performing Clinician Source Performed CBC WITH DIFF 2022-06-28 15:15:00 Delvin Moore [facility] ASSIGNMENT OF BENEFITS 2022-06-28 15:04:21 Doctor Unassigned, No [facility] US PELVIS COMPLETE WITH 2022-05-01 00:19:15 Blanquita Osorio [facility] TRANSVAGINAL [facility] NOTICE OF PRIVACY 2022-04-30 23:12:33 Doctor Unassigned, No [facility] CONSENT/REFUSAL FOR 2022-04-30 23:11:07 Doctor Unassigned, No [facility] DIAGNOSIS AND TREATMENT [facility] ASSIGNMENT OF BENEFITS 2022-04-30 23:10:51 Doctor Unassigned, No [facility] PAP SMEAR-LIQUID 2022-04-24 16:25:00 Blanquita Osorio [facility] BASED-CP Medical [facility] Partial hysterectomy [facility] Encounters Start End Encounter Admission Attending Care Care Encounter Source Date/Time Date/Time Type Type Clinicians Facility Department ID 2021-07-29 Emergency [facility] [id number] Univers 01:40:57 ity [facility] 2021-07-27 Emergency [facility] [id number] Univers 12:38:50 ity [facility] 2021-07-26 Emergency [facility] [id number] Univers 19:52:39 ity of [facility] [place] 2022-12-03 2022-12-03 Outpatient R DEVON [facility] [id number] Univers 08:00:00 08:00:00 BLANQUITA ity of [facility] [place] 2022-07-18 2022-07-18 Telephone Mary [facility] [id number] Univers 00:00:00 00:00:00 Parvez [facility] [id number] it y of [place] [id number] Tito as DOUG?BLEA [phone] [place] dical KNEY [address] [place] MED[facility] OFF[facility]ILD[facility] 2022-06-28 2022-06-28 Scow Hand Fredis Adkins Lab Main [facility] [id number] [id number] Univers 07:45:00 08:00:00 Visit Bri Majano [id number] ity of [id number] [id number] K[place] dical [facility] [address] [facility] 2022-06-28 2022-06-28 [facility] [id number] Univers 07:45:00 07:45:00 BRI ity [facility] 2022-06-28 2022-06-28 Orders Doctor SILVANA [id number] Univers 00:00:00 00:00:00 Only Unassigned, CARMEN [id number] ity of [place] [facility] [id number] [place]ito as [id number] [facility] [address] [place] 2022-05-20 2022-05-20 Outpatient ALONSO LINDER [facility] [id number] Univers 11:00:00 11:00:00 ity of [facility] [place] 2022-05-20 2022-05-20 Telephone Jc [facility] [id number] Univers 00:00:00 00:00:00 Bacilio SPECIALTY [id number] ity of [id number] [place] [id number] [facility] [address] [place] 2022-05-08 2022-05-08 [facility] [id number] Univers 09:29:45 23:59:00 BLANQUITA stevenson [facility] 2022-05-08 2022-05-08 [facility] [id number] Univers 09:29:45 23:59:00 Encounter Blanquita ARMENDARIZ [id number] ity of [id number] [facility] [id number] [facility] [address] [place] 2022-04-30 2022-04-30 [facility] [id number] Univers 18:40:42 23:59:00 BLANQUITA elva [facility] 2022-04-30 2022-04-30 [facility] [id number] Univers 18:15:00 23:59:00 Encounter Blanquita ARMENDARIZ [id number] ity of [id number] [facility] [id number] [facility] [address] [place] 2022-04-25 2022-04-25 [facility] [id number] Univers 00:00:00 00:00:00 Blanquita ARMENDARIZ [id number] i ty of [id number] [id number] [place] dical NAL [address] [place] [address] 2022-04-24 2022-04-24 [facility] .2.840.11 [id number] Univers 10:30:00 11:31:14 Visit Angeline Mejia 350.1.13.10 ity of [id number] [id number] [place] dical NAL [address] [place] [address] 2022-04-24 2022-04-24 Outpatient Manpreet MEJIA [facility] [id number] [facility] 10:30:00 11:31:14 ANGELINE stevenson [facility] 2022-04-24 2022-04-24 [facility] [id number] 10:30:00 11:31:14 ANGELINE stevenson [facility] 2022-04-24 2022-04-24 Outpatient R ADUM, [facility] [id number] Univers 10:30:00 11:31:14 ANGELINE yaneli [facility] 2022-04-24 2022-04-24 Outpatient R ADUM, [facility] [id number] Univers 10:30:00 10:30:00 ANGELINE [facility] 2022-04-24 2022-04-24 Orders Doctor SILVANA [id number] Univers 00:00:00 00:00:00 Only Unassigned, CARMEN [id number] [facility] [place] [facility] [id number] Tito as [id number] [address] 2022-04-07 2022-04-07 Outpatient R MADDIE, [facility] [id number] Univers 15:00:00 15:31:44 [facility] 2022-04-07 2022-04-07 Urgent GreenEthel [facility] [id number] Univers 15:00:00 15:31:44 Care Danilo Vukatalina [facility] [id number] ity of [place] [id number] Tito as DOUG?BLEA [id number] [facility] [address] [place] MEDICAL OFFICE [facility] 2022-04-04 2022-04-04 Outpatient R ADREJI, [facility] [id number] Univers 13:30:00 13:30:00 ANGELINE [facility] 2022-02-11 2022-02-11 Scow Hand Lab, Ang - Db [facility] 1.2.840.1 [id number] Univers 10:00:00 10:15:00 Visit Parvez Hernandez [id number] ity of [place] [id number] Tito as DOUG?BLEA [id number] [facility] [address] [place] MEDICAL OFF[facility]ILD[facility] 2022-02-11 2022-02-11 Outpatient R MARY [facility] [id number] Univers 09:30:00 10:05:09 PARVEZ aquinoyaneli [facility] 2022-02-11 2022-02-11 Office Mary, [facility] [id number] Univers 09:30:00 10:05:09 Visit Parvez HEALTH 350.1.13.10 it y [facility] 4.2.7.2.686 Tito as DOUG?BLEA [id number] [facility] [address] [place] MEDICAL OFFICE [facility] 2022-02-11 2022-02-11 Refizabel Handley [facility] 1.2.840.114 [id number] Univers 00:00:00 00:00:00 Wongenovevaful Dayana HEALTH [id number] ity of [place] [id number] Tito as DOUG?BLEA [id number] [address] MEDICAL OFFICE [facility] 2021-11-07 2021-11-07 Outpatient R ANTONIO [facility] [id number] Univers 10:00:00 10:00:00 ANGELINE stevenson [facility] 2021-11-05 2021-11-05 Outpatient R DIEGO [facility] [id number] Univers 14:20:00 14:55:11 CALLY [facility] 2021-11-05 2021-11-05 Urgent Cally Simental [facility] [id number] Univers 14:20:00 14:55:11 Care Unknown, Attending [facility] 350.1.13.10 ity of [place] 4.2.7.2.686 [place] DOGU?BLEA [id number] [facility] [address] [place] MEDICAL OFFICE [facility] 2021-09-04 2021-09-04 Scow Hand 1, Adc Lab [facility] 1.2.840.114 [id number] Univers 09:37:41 09:52:41 Visit Bri Majano [id number] ity of [id number] [place] [facility] [id number] [address] 2021-09-04 2021-09-04 Outpatient R GRETEL [facility] [id number] Univers 09:30:00 09:30:00 BRI stevenson [facility] 2021-09-04 2021-09-04 Orders Doctor SILVANA 1.2.840.114 [id number] Univers 00:00:00 00:00:00 Only Unassigned, CARMEN 350.1.13.10 ity of [place] [facility] 4.2.7.2.686 Tito as [id number] [address] 2021-08-29 2021-08-29 Manda Handley TNFELECIA 1.2.840.114 [id number] Univers 00:00:00 00:00:00 Wondiful A HEALTH 350.1.13.10 ity of [place] 4.2.7.2.686 Tito as DOUG?BLEA [id number] [address] OFFICE [facility] 2021-08-28 2021-08-28 Orders Doctor SILVANA 1.2.840.114 [id number] Univers 00:00:00 00:00:00 Only Unassigned, CARMEN 350.1.13.10 ity of [place] [facility] 4.2.7.2.686 Tito as [phone] [address] 2021-07-17 2021-07-17 Manda Handley, [facility] 1.2.840.114 [id number] Univers 00:00:00 00:00:00 Wondiful A Health 350.1.13.10 ity of [place] 4.2.7.2.686 Tito as Professio [phone] [address] One 2021-07-16 2021-07-16 Manda Handley TNFELECIA 1.2.840.114 [id number] Univers 00:00:00 00:00:00 Wondiful A Health 350.1.13.10 ity of [place] 4.2.7.2.686 Tito as Professio [id number] [address] One 2021-05-23 2021-05-23 Manda Handley, TNFELECIA 1.2.840.114 [id number] Univers 00:00:00 00:00:00 Wondiful A Health 350.1.13.10 ity of [place] 4.2.7.2.686 Tito as Doug?Blea [phone] [place] wander moon [address] [place] [address] Office [facility] 2021-05-22 2021-05-22 [facility] 1.2.840.114 [id number] Univers 00:00:00 00:00:00 Wondiful A Health 350.1.13.10 ity of [place] 4.2.7.2.686 Tito as Doug?Blea [phone] [facility] m[address] 2021-05-11 2021-05-11 Telemedici [facility] 1.2.840.114 [id number] Univers 16:16:16 19:33:55 ne Visit Wondiful A Health 350.1.13.10 ity of [place] 4.2.7.2.686 Tito as Professio [phone] [address] One 2021-05-11 2021-05-11 [facility] [id number] Univers 15:45:00 15:45:00 WONDIFUL ity o f [facility] 2021-05-09 2021-05-09 Telephone [facility] 1.2.840.114 [id number] Univers 00:00:00 00:00:00 Wondiful A Health 350.1.13.10 ity of [place] 4.2.7.2.686 Tito as Professio [phone] 07 [address] One 2021-05-09 2021-05-09 Letter [facility] 1.2.840.114 [id number] Univers 00:00:00 00:00:00 (Out) [facility] 350.1.13.10 ity of [place] 4.2.7.2.686 [place]ito as Professio [phone] [address] One 2021-05-08 2021-05-08 Refill [facility]AD[facility] 1.2.840.114 [id number] Univers 00:00:00 00:00:00 [facility] 350.1.13.10 ity of [place] 4.2.7.2.686 [place] as Professio [phone] Me dical nal [address] Office Building One 2021-04-27 2021-04-28 Emergency [facility] 1.2.704.332 [id number] Univers 21:35:00 01:45:00 Elis Armendariz 350.1.13.10 i ty of [place] [phone] [facility] 084 Branch 2021-04-27 2021-04-28 Emergency X [facility] ERT [id number] Univers 21:35:00 01:45:00 ELIS ityaneli [facility] 2021-04-25 2021-04-25 [facility] 1.2.840.114 [id number] Univers 14:53:06 23:59:00 Encounter Blanquita Armendariz 350.1.13.10 ity [facility] [place] [phone] [facility] [address] 2021-04-25 2021-04-25 Outpatient [facility] [id number] Univers 00:00:00 00:00:00 BLANQUITA stevenson [facility] 2021-04-25 2021-04-25 Orders Doctor SILVANA 1.2.840.114 [id number] Univers 00:00:00 00:00:00 Only Unassigned, CARMEN 350.1.13.10 ity of [place] [facility] 4.2.7.2.686 Tito as [phone] [facility] 009 [address] 2021-04-20 2021-04-20 Scow Hand Lucille, Fredis Lab Main [facility] 1.2.8 40.114 [id number] Univers 07:44:43 07:59:43 Visit Parvez Hernandez 350.1.13.10 ity [facility] [place] [phone] Ks dical nal [address] Building 2021-04-20 2021-04-20 Outpatient R MARY [facility] [id number] Univers 07:45:00 07:45:00 PARVEZ stevenson [facility] 2021-04-19 2021-04-19 Outpatient [facility] [id number] Univers 11:45:00 11:45:00 BLANQUITA stevenson [facility] 2021-04-19 2021-04-19 Telemedici Yoandyseaview hospitaljudyADV[facility] 1.2.840.114 [id number] Univers 10:15:32 10:30:32 ne Visit Blanquita Armendariz 350.1.13.10 ity of [place].2.[place] [phone] [facility] [address] [place] Building 2021-04-17 2021-04-17 [facility] Yoandyseaview hospitaljudyADV[facility] 1.2.840.114 [id number] Univers 17:30:00 23:59:00 Encounter Blanquita Armendariz 350.1.13.10 ity of [place].2.[place] [phone] [facility] [address] [place] 2021-04-17 2021-04-17 Outpatient [facility] [id number] Univers 00:00:00 00:00:00 BLANQUITA stevenson [facility] 2021-04-17 2021-04-17 Orders Doctor SILVANA 1.2.840.114 [id number] Univers 00:00:00 00:00:00 Only Unassigned, CARMEN 350.1.13.10 ity of [place] [facility] 4.2.7.2.686 Tito as [phone] [facility] [address] [place] 2021-04-16 2021-04-16 Office Mary [facility] 1.2.840.114 [id number] Univers 09:38:43 10:56:27 Visit Parvez [employer] 350.1.13.10 it y of [place] 4.2.7.2.686 [place] as Professio [phone] [facility] [address] [place] Office Building One 2021-04-16 2021-04-16 Outpatient [facility] [id number] Univers 10:00:00 10:00:00 PARVEZ stevenson [facility] 2021-04-16 2021-04-16 Telephone [facility] 1.2.840.114 [id number] Univers 00:00:00 00:00:00 [facility] 350.1.13.10 ity of [place] 4.2.7.2.686 [place] as Professio [phone] [facility] [address] [place] Office [facility] One 2021-04-11 2021-04-11 Case Jeanjudy [facility] 1.2.403.372 [id number] [facility] 00:00:00 00:00:00 Management Blanquita Armendariz 350.1.13.10 ity of [place] [phone] [facility] 134 [facility] 2021-04-03 2021-04-03 Scow Hand Lucille, Adc Lab Main [facility] 1.2.8 40.114 [id number] [facility] 11:55:07 12:10:07 Visit Blanquita Osorio 350.1.13.10 ity of [place].2.[place].2.[place] [phone] [facility] 353 [facility] 2021-04-03 2021-04-03 Office Devon [facility] 1.2.810.[address] [place] [address] 09:44:05 11:29:21 Visit Blanquitajuan f Armendariz 350.1.13.10 i ty of [place].2.[place] [phone] [facility] 134 [facility] 2021-04-03 2021-04-03 Outpatient R DEVON [facility] [id number] [facility] 09:45:00 09:45:00 BLANQUITA ity of [facility] 2021-04-03 2021-04-03 Orders Doctor SILVANA 1.2.840.[id number] [place] [address] 00:00:00 00:00:00 Only Unassigned, CARMEN 350.1.13.10 ity of [place] [facility] 4.2.7.2.686 Tito as [phone] [address] 2021-02-04 2021-02-04 Telephone Ender [facility] 1.2.840.114 [id number] [facility] 00:00:00 00:00:00 [facility] 350.1.13.10 ity of [place] 4.2.7.2.686 [place] as Professio [phone] Ks dical nal 044 [facility] One 2021-01-30 2021-01-30 Refill [facility] 1.2.840.114 [id number] Univers 00:00:00 00:00:00 Wondiful A [place] 350.1.13.10 ity of [place].2.[place].2.[place] [phone] Ks dical nal 044 [facility] 2020-12-08 2020-12-08 Telemedici [facility]ADV[facility] 1.2.840.114 [id number] Univers 14:32:19 18:52:29 ne Visit [facility] 350.1.13.10 ity of [place] 4.2.7.2.686 [place] as Professio [phone] [facility] nal 044 [facility] One 2020-12-08 2020-12-08 Outpatient R ENDER [facility] [id number] Univers 14:15:00 14:15:00 WONDIFUL ity o f [facility] 2020-12-04 2020-12-04 Outpatient R RAS JACOBSEN [facility] [id number] Univers 08:40:00 08:40:00 RAS JACOBSEN ityaneli [facility] 2020-12-04 2020-12-04 Telephone EndreADVANCED [facility] 1.2.840.114 [id number] Univers 00:00:00 00:00:00 [facility] 350.1.13.10 ity of [place] 4.2.7.2.686 [place] as Professio [phone] [address] One 2020-12-03 2020-12-03 Telephone Mike [facility] 1.2.432.961 [id number] Univers 00:00:00 00:00:00 Edward Jacksonton 350.1.13.10 ity of [place].2.[place] [phone] Ks dicnv nal 059 [facility] 2020-12-03 2020-12-03 Telephone SILVANA [place] 1.2.840.114 [id number] Univers 00:00:00 00:00:00 Sly STEWARTY 350.1.13.[address] [facility] 4.2.7.2.686 [place]ito as [phone] [facility] [address] [place] 2020-11-28 2020-11-28 Office [facility] 1.2.840.114 [id number] Univers 10:19:27 11:19:50 Visit Emil Armendariz 350.1.13.10 ity of [place].2.[place] [phone] [address] 2020-11-28 2020-11-28 Outpatient R [facility] [id number] Univers 10:20:00 10:20:00 EMIL ityaneli o f [facility] 2020-11-28 2020-11-28 Telephone [facility] 1.2.028.921 [id number] Univers 00:00:00 00:00:00 Emil Armendariz 350.1.13.10 ity of [place] [phone] [place] 182259 [facility] 2020-11-27 2020-11-27 Telephone [facility] 1.2.671.368 [id number] Univers 00:00:00 00:00:00 Emil Armendariz 350.1.13.10 ity of [place].2.[place] [phone] [place] 182259 [facility] 2020-11-24 2020-11-24 Emergency [facility] 1.2.840.114 [id number] Univers 12:43:00 15:53:00 Kymberly Armendariz 350.1.13.10 i ty of [place].2.[place].2.[place] [phone] [facility] [address] [place] 2020-11-24 2020-11-24 Telephone [facility]AD[facility] 1.2.840.114 [id number] Univers 00:00:00 00:00:00 [facility] 350.1.13.10 ity of [place] 4.2.7.2.686 [place]ito as Professio [phone] [address] One 2020-10-17 2020-10-17 Refizabel HandleyADVANCED CARE [facility] 1.2.840.114 [id number] Univers 00:00:00 00:00:00 [facility] 350.1.13.10 ity of [place] 4.2.7.2.686 [place] as Professio [phone] [address] One 2020-10-11 2020-10-11 Telephone [facility]AD[facility] 1.2.840.114 [id number] Univers 00:00:00 00:00:00 [facility] 350.1.13.10 ity of [place] 4.2.7.2.686 [place] as Professio [phone] [address] One 2020-09-17 2020-09-17 [facility]AD[facility] 1.2.840.114 [id number] Univers 00:00:00 00:00:00 [facility] 350.1.13.10 ity of [place] 4.2.7.2.686 [place] as Professio [phone] [address] One 2020-09-12 2020-09-12 Refizabel HandleyADVANCED [facility]ARE [facility] 1.2.840.114 [id number] Univers 00:00:00 00:00:00 [facility] 350.1.13.10 ity of [place] 4.2.7.2.686 [place] as Professio [phone] [address] One 2020-09-05 2020-09-05 Telemedici EnderADVANC[facility] 1.2.840.114 [id number] Univers 07:18:02 17:11:22 ne Visit [facility] 350.1.13.10 ity of [place] 4.2.7.2.686 [place] as Professio [phone] [address] One 2020-09-05 2020-09-05 Outpatient R ENDER [facility] [id number] Univers 16:15:00 16:15:00 WONDIFUL ity o f [facility] 2020-09-05 2020-09-05 Orders Doctor SILVANA 1.2.840.114 [id number] Univers 00:00:00 00:00:00 Only Unassigned, CARMEN 350.1.13.10 ity of [place] [facility] 4.2.7.2.686 Tito as [phone] [address] 2020-08-28 2020-08-28 Refizabel HandleyADVANCED [facility] 1.2.840.114 [id number] Univers 00:00:00 00:00:00 [facility] 350.1.13.10 ity of [place] 4.2.7.2.686 [place] as Professio [phone] [address] Office [facility] 2020-08-28 2020-08-28 Venkat Handley [facility] 1.2.840.114 [id number] Univers 00:00:00 00:00:00 [facility] 350.1.13.10 ity of [place] 4.2.7.2.686 [place] as Professio [phone] [address] Office [facility] 2020-08-27 2020-08-27 Manda HandleyADVANCED [facility] 1.2.840.114 [id number] Univers 00:00:00 00:00:00 [facility] 350.1.13.10 ity of [place] 4.2.7.2.686 [place] as Professio [phone] [address] Office [facility] 2020-07-08 2020-07-08 Manda HandleyADVANCED [facility] 1.2.840.114 [id number] Univers 00:00:00 00:00:00 Wondiful A [place] 350.1.13.10 ity of [place] [phone] [address] 2020-07-05 2020-07-05 Manda HanldeyADVANCED CARE [facility] 1.2.840.114 [id number] Univers 00:00:00 00:00:00 [facility] 350.1.13.10 ity of [place] 4.2.7.2.686 [place]ito as Professio [phone] [address] 2020-06-30 2020-06-30 [facility]AD[facility] 1.2.840.114 [id number] Univers 00:00:00 00:00:00 Wondiful A [place] 350.1.13.10 ity of [place].2.[place] [phone] [address] 2020-06-15 2020-06-15 Telephone [facility] 1.2.840.114 [id number] Univers 00:00:00 00:00:00 [facility] 350.1.13.10 ity of [place] 4.2.7.2.686 [place]ito as Professio [phone] [address] 2020-06-14 2020-06-14 Orders Doctor SILVANA 1.2.840.114 [id number] Univers 00:00:00 00:00:00 Only Unassigned, CARMEN 350.1.13.10 ity of [place] [facility] 4.2.7.2.686 Tito as [phone] [address] 2020-06-08 2020-06-08 Telephone [facility] 1.2.840.114 [id number] Univers 00:00:00 00:00:00 [facility] 350.1.13.10 ity of [place] 4.2.7.2.686 [place] as Professio [phone] [address] 2020-05-29 2020-05-29 [facility]AD[facility] 1.2.840.114 [id number] Univers 00:00:00 00:00:00 [facility] 350.1.13.10 ity of [place] 4.2.7.2.686 [place] as Professio [phone] [address] 2020-05-21 2020-05-21 Orders Doctor SILVANA 1.2.840.114 [id number] Univers 00:00:00 00:00:00 Only Unassigned, CARMEN 350.1.13.10 ity of [place] [facility] 4.2.7.2.686 Tito as [phone] [facility] [address] [place] 2020-05-18 2020-05-18 Telephone [place] 1.2.840.114 [id number] Univers 00:00:00 00:00:00 Wondiful A [place] 350.1.13.10 ity of [place] [phone] Ks dicnv nal 044 [facility] 2020-05-18 2020-05-18 Refill [facility]AD[facility] 1.2.840.114 [id number] Univers 00:00:00 00:00:00 Wondiful A [place] 350.1.13.10 ity of [place]2.[place].2.[place] [phone] [facility] 044 [facility] 2020-05-16 2020-05-16 Office Ann-Marie [facility] 1.2.840.114 [id number] Univers 15:00:00 15:40:00 Visit Ras Armendariz 350.1.13.10 ity of [place].2.[place].2.[place] [phone] [facility] nal 092 [facility] 2020-05-16 2020-05-16 Outpatient R RAS JACOBSEN [facility] [id number] Univers 15:00:00 15:00:00 RAS JACOBSEN ity of [facility] 2020-05-12 2020-05-12 Emergency [facility] 1.2.840.114 [id number] Univers 21:23:00 23:30:00 Dorian Armendariz 350.1.13.10 i ty of [place]2.7.2.[place] [phone] [facility] [address] [place] 2020-05-12 2020-05-12 Orders Doctor SILVANA 1.2.840.114 [id number] Univers 00:00:00 00:00:00 Only Unassigned, CARMEN 350.1.13.10 ity of [place] [facility] 4.2.7.2.686 Tito as [phone] [facility] [address] [place] 2020-05-11 2020-05-11 Refizabel HandleyADVANCED [facility] 1.2.840.114 [id number] Univers 00:00:00 00:00:00 [facility] 350.1.13.10 ity of [place] 4.2.7.2.686 [place] as Professio [phone] Ks dical nal 044 [facility] 2020-05-10 2020-05-10 Telemedici [facility]AD[facility] 1.2.840.114 [id number] Univers 08:00:00 16:49:43 ne Visit Wondiful A [place] 350.1.13.10 ity of [place].2.7.2.[place] [phone] Ks dicnv nal 044 [facility] 2020-05-10 2020-05-10 Outpatient [facility] [id number] Univers 16:15:00 16:15:00 WONDIFUL ity o f [facility] 2020-05-09 2020-05-09 Refill MessiADVANC[facility] 1.2.840.114 [id number] Univers 00:00:00 00:00:00 Wentong [place] 350.1.13.10 i ty of [place] 4.2.7.2.[place] [phone] Ks dicnv nal 220 [facility] 2020-05-08 2020-05-08 Telephone [facility] 1.2.840.114 [id number] Univers 00:00:00 00:00:00 [facility] 350.1.13.10 ity of [place] 4.2.7.2.686 [place]ito as Professio [phone] Ks dical nal 044 [place] Office [facility] 2020-05-04 2020-05-04 [facility]phone [facility] 1.2.840.114 [id number] Univers 00:00:00 00:00:00 [facility] 350.1.13.10 ity of [place] 4.2.7.2.686 [place]ito as Professio [phone] Ks dical nal 044 [facility] 2020-05-04 2020-05-04 Telephone [facility] 1.2.840.114 [id number] Univers 00:00:00 00:00:00 [facility] 350.1.13.10 ity of [place] 4.2.7.2.686 [place] as Professio [phone] [address] 2020-04-28 2020-04-28 Telephone [facility] 1.2.840.114 [id number] Univers 00:00:00 00:00:00 [facility] 350.1.13.10 ity of [place] 4.2.7.2.686 [place]ito as Professio [phone] [address] Office [facility] 2020-04-26 2020-04-26 Telemedici [facility] 1.2.840.114 [id number] Univers 07:52:11 16:20:42 ne Visit Wondiful A [place] 350.1.13.10 ity of [place] 4.2.7.2.[place] [phone] [address] 2020-04-26 2020-04-26 Outpatient R ENDER [facility] [id number] Univers 14:45:00 14:45:00 WONDIFUL ity o f [facility] 2020-04-24 2020-04-24 Refill [facility]AD[facility] 1.2.840.114 [id number] Univers 00:00:00 00:00:00 [facility] 350.1.13.10 ity of [place] 4.2.7.2.686 [place]ito as Professio [phone] [address] 2020-04-12 2020-04-12 Outpatient R RADIOLOGY [facility] [id number] Univers 00:00:00 00:00:00 ity of [facility] 2020-03-31 2020-03-31 [facility] 1.2.982.495 [id number] 2543 Univers 08:04:00 23:59:00 Encounter Wondiful A [place] 350.1.13.10 ity of [place].2.[place] [phone] [address] 2020-03-31 2020-03-31 Outpatient R ENDER [facility] [id number] Univers 00:00:00 00:00:00 WONDIFUL ity o f [facility] 2020-03-31 2020-03-31 Orders Doctor SILVANA 1.2.840.114 [id number] Univers 00:00:00 00:00:00 Only Unassigned, CARMEN 350.1.13.10 ity of [place] [facility] 4.2.7.2.686 Tito as [phone] [facility] [address] [place] 2020-03-24 2020-03-24 Telemedici [facility]AD[facility] 1.2.840.114 [id number] Univers 08:01:02 13:09:41 ne Visit Wondiful A [place] 350.1.13.10 ity of [place].2.[place].2.[place] [phone] Ks dicnv nal 044 [facility] 2020-03-24 2020-03-24 Outpatient R ENDER [facility] [id number] Univers 10:45:00 10:45:00 WONDIFUL ity o f [facility] 2020-01-31 2020-02-01 Emergency Paris Guzman [facility] 1.2.840.114 [id number] Univers 23:10:46 01:17:00 Amanda [place] 350.1.13.10 i ty of [place]2.[place] [phone] [facility] [address] [place] 2019-12-22 2019-12-22 Refill [facility]AD[facility] 1.2.840.114 [id number] Univers 00:00:00 00:00:00 Wentong [place] 350.1.13.10 i ty of [place].2.[place].2.[place] [phone] Ks dical nal 220 [facility] 2019-12-21 2019-12-21 Telephone [facility]AD[facility] 1.2.840.114 [id number] Univers 00:00:00 00:00:00 [facility] 350.1.13.10 ity of [place] 4.2.7.2.686 [place]ito as Professio [phone] Ks dical nal 044 [place] Office Building One 2019-12-19 2019-12-19 Orders Doctor PINA 1.2.840.114 [id number] Univers 00:00:00 00:00:00 Only Unassigned, CARMEN 350.1.13.10 ity of [place] [facility] 4.2.7.2.686 Tito as [phone] [address] 2019-12-18 2019-12-18 Refizabel Swenson TNFELECIA 1.2.840.114 [id number] Univers 00:00:00 00:00:00 Wentong [place] 350.1.13.10 i ty of [place] [phone] [facility] nal 220 [facility] 2019-12-10 2019-12-10 Refill Ender TNFELECIA 1.2.840.114 [id number] Univers 00:00:00 00:00:00 [facility] 350.1.13.10 ity of [place] 4.2.7.2.686 [place]ito as Professio [phone] [facility] 044 [facility] 2019-12-10 2019-12-10 Telephone Ender TNFELECIA 1.2.840.114 [id number] Univers 00:00:00 00:00:00 [facility] 350.1.13.10 ity of [place] 4.2.7.2.686 Tito as Professio [phone] [facility] 044 [facility] 2019-11-04 2019-11-04 Orders Doctor SILVANA 1.2.840.114 [id number] Univers 00:00:00 00:00:00 Only Unassigned, CARMEN 350.1.13.10 ity of [place] [facility] 4.2.7.2.686 Tito as [phone] [address] 2019-11-02 2019-11-02 Case Ender TNFELECIA 1.2.840.114 [id number] Univers 00:00:00 00:00:00 Management [facility] 350.1.13.10 ity of [place] 4.2.7.2.686 Tito as Professio [phone] [facility] 044 [place] Office [facility] 2019-10-29 2019-10-29 Telephone Ender TNFELECIA 1.2.840.114 [id number] Univers 00:00:00 00:00:00 [facility] 350.1.13.10 ity of [place] 4.2.7.2.686 Tito as Professio [phone] Ks wander [place] 044 [facility] 2019-10-26 2019-10-26 Telephone Ender [facility] 1.2.840.114 [id number] Univers 00:00:00 00:00:00 [facility] 350.1.13.10 ity of [place] 4.2.7.2.686 Tito as Professio [phone] Ks wander Day [facility] One 2019-10-19 2019-10-19 Office [place], [facility] 1.2.840.114 [id number] [facility] 14:26:30 15:26:45 Visit Emil [place] 350.1.13.10 ity of [place] [phone] Ks wander [place] 059 [facility] 2019-10-19 2019-10-19 Telephone Ender [facility] 1.2.840.114 [id number] Univers 00:00:00 00:00:00 [facility] 350.1.13.10 ity of [place] 4.2.7.2.686 [place]ito as Professio [phone] Ks wander Day [facility] 2019-10-13 2019-10-13 Scow Hand Lab, Adc Fam Pob I [facility] 1.2. 840.114 [id number] [facility] 09:05:05 10:03:32 Visit FairfieldVitor mengcarlos [facility] 350.1.13.1 0 ity of [place] 4.2.7.2.686 Tito as Professio [phone] Ks maribellal nal Barb [facility] One 2019-10-07 2019-10-13 Office Ender [facility] 1.2.840.114 [id number] Univers 10:03:04 09:41:09 Visit Wongenovevaful A Health 350.1.13.10 [facility] [place] [id number] Tito as Professio [phone] [place] wander nal Barb [facility] 2019-07-17 2019-07-18 Observatio [facility] [id number] Memoria 15:16:49 19:55:00 n r [place] 00 l [facility] 2019-07-17 2019-07-18 Observatio nullSilvia [facility] [id number] Memoria 15:16:49 19:55:00 n r [place] 00 l [facility] 2019-07-17 2019-07-18 Outpatient Karen, MHPL PL [id number] 10:16:49 14:55:00 Fadi 00 2019-07-17 2019-07-17 Outpatient E [facility] 7500 [facility] 13:18:00 13:18:00 Results Test Description Test Time Test Comments Results Result Comments Source CBC WITH DIFF 2022-06-28 15:32:43 Test Item Value Reference Range Interpretation Comme nts WBC (test code = 6690-2) See_Comment [A utomated message] The system which ge nerated this result transmit vero reference range: 4.30 - 1 1.10 10*3/?L. The reference r suzie was not used to interpr et this result as normal/abnor mal. RBC (test code = 789-8) See_Comment [Au tomated message] The system which ge nerated this result transmit vero reference range: 3.93 - 5 .25 10*6/?L. The reference r suzie was not used to interpr et this result as normal/abnor mal. HGB (test code = 718-7) 13.5 g/dL 11.6-15 HCT (test code = 4544-3) 40.5 % 35.7-45.2 MCV (test code = 787-2) 89.2 fL 80.6-95.5 MCH (test code = 785-6) 29.7 pg 25.9-32.8 MCHC (test code = 786-4) 33.3 g/dL 31.6-35.1 RDW-SD (test code = 57558-5) 37.2 fL 39-49.9 L RDW-CV (test code = 788-0) 11.7 % 12-15.5 L PLT (test code = 777-3) See_Comment [Au tomated message] The system which ge nerated this result transmit vero reference range: 166 - 35 8 10*3/?L. The reference range was not used to interpret th is result as normal/abnormal . MPV (test code = 09285-1) 10.1 fL 9.5-12.9 NRBC/100 WBC (test code = See_Comment [ Automated message] The [id number]) system which [employer] nerated this result transmit vero reference range: 0.0 - 10 .0 /100 WBCs. The reference r suzie was not used to interpr et this result as normal/abnor mal. NRBC x10^3 (test code = See_Comment [Au tomated message] The [id number]) system which ge nerated this result transmit vero reference range: 10*3/?L. The reference range was not u sed to interpret this result as normal/abnormal . GRAN MAT (NEUT) % (test code 59.6 % = 770-8) IMM GRAN % (test code = 0.40 % [id number]) LYMPH % (test code = 736-9) 31.4 % MONO % (test code = 5905-5) 5.8 % EOS % (test code = 713-8) 1.8 % BASO % (test code = 706-2) 1.0 % GRAN MAT x10^3(ANC) (test 4.87 10*3/uL 1.88-7.09 code = [id number]) IMM GRAN x10^3 (test code = 0.03 10*3/uL 0-0.06 [id number]) LYMPH x10^3 (test code = 2.56 10*3/uL 1.32-3.29 731-0) MONO x10^3 (test code = 0.47 10*3/uL 0.33-0.92 742-7) EOS x10^3 (test code = 0.15 10*3/uL 0.03-0.39 711-2) BASO x10^3 (test code = 0.08 10*3/uL 0.01-0.07 H 704-7) Lab Interpretation (test Abnormal code = 74088-8) [facility] WITH [id number] 15:32:43 Test Item Value Reference Range Interpretation Comments WBC (test code = See_Comment [Automated 6690-2) message] The sy stem which generated this result transmitted reference range : 4.30 - 11.10 10*3/?L. The reference range was not used to interpret this result as normal/abnormal . RBC (test code = See_Comment [Automated 789-8) message] The sy stem which generated this result transmitted reference range : 3.93 - 5.25 10*6/?L. The reference range was not used to interpret this result as normal/abnormal . HGB (test code = 13.5 g/dL 11.6-15 718-7) HCT (test code = 40.5 % 35.7-45.2 4544-3) MCV (test code = 89.2 fL 80.6-95.5 787-2) MCH (test code = 29.7 pg 25.9-32.8 785-6) MCHC (test code = 33.3 g/dL 31.6-35.1 786-4) RDW-SD (test code = 37.2 fL 39-49.9 L 02210-3) RDW-CV (test code = 11.7 % 12-15.5 L 788-0) PLT (test code = See_Comment [Automated 777-3) message] The sy stem which generated this result transmitted reference range : 166 - 358 10*3/ ?L. The reference r suzie was not used to interpret this result as normal/abnormal . MPV (test code = 10.1 fL 9.5-12.9 30316-9) NRBC/100 WBC (test See_Comment [Automat ed code = 5326350462) message] The system which generated this result transmitted reference range : 0.0 - 10.0 /100 WBCs. The refer ence range was not u sed to interpret th is result as normal/abnormal . NRBC x10^3 (test code See_Comment [Auto mated = [id number]) message] The s ystem which generated this result transmitted reference range : 10*3/?L. The reference range was not used to interpret this result as normal/abnormal . GRAN MAT (NEUT) % 59.6 % (test code = 770-8) IMM GRAN % (test code 0.40 % = [id number]) LYMPH % (test code = 31.4 % 736-9) MONO % (test code = 5.8 % 5905-5) EOS % (test code = 1.8 % 713-8) BASO % (test code = 1.0 % 706-2) GRAN MAT x10^3(ANC) 4.87 10*3/uL 1.88-7.09 (test code = 3862527372) IMM GRAN x10^3 (test 0.03 10*3/uL 0-0.06 code = 0247598203) LYMPH x10^3 (test code 2.56 10*3/uL 1.32-3.29 = 731-0) MONO x10^3 (test code 0.47 10*3/uL 0.33-0.92 = 742-7) EOS x10^3 (test code = 0.15 10*3/uL 0.03-0.39 711-2) BASO x10^3 (test code 0.08 10*3/uL 0.01-0.07 H = 704-7) Lab Interpretation Abnormal (test code = 05432-3) [facility] Test Item Value Reference Range Interpretation Comments Glucose Lvl (test code = Glucose Lvl) 89 70-99 [facility]feq[facility]zTZTKLMVMOLZF8502[facility]-99 16:00:00 Test Item Value Reference Range Interpretation Comments BUN (test code = BUN) 10 7-22 [facility]AqcpfdbTLWMWXTKJAQC5093-34-75 16:00:00 Test Item Value Reference Range Interpretation Comments Creatinine Lvl (test code = Creatinine 0.90 0.50-1.40 Lvl) [facility]UgfpmdcVWIKUPIIOWGL7779-20-77 16:00:00 Test Item Value Reference Range Interpretation Comments Sodium Lvl (test code = Sodium Lvl) 138 135-145 [facility] OaklandMtkraciIBDBLSANTXEN6698-92-61 16:00:00 Test Item Value Reference Range Interpretation Comments Potassium Lvl (test code = Potassium 4.6 3.5-5.1 Lvl) [facility]VacjyveKPWBJOXHNZMQ2284-28-40 16:00:00 Test Item Value Reference Range Interpretation Comments Chloride Lvl (test code = Chloride Lvl) 106 95-109 [facility]XeuoihnVEGLGVECQZTC3246-32-08 16:00:00 Test Item Value Reference Range Interpretation Comments CO2 (test code = CO2) 25 24-32 [facility] OaklandGcnlglkIBFISBGMBFSB0322-57-25 16:00:00 Test Item Value Reference Range Interpretation Comments Calcium Lvl (test code = Calcium Lvl) 8.7 8.5-10.5 [facility] OaklandIvoprlvQHXTXTSNXMCJ7951-80-15 16:00:00 Test Item Value Reference Range Interpretation Comments Total Protein (test code = Total 7.9 6.4-8.4 Protein) [facility]PjwrrfwQEUBZDVNQLCL5617-28-93 16:00:00 Test Item Value Reference Range Interpretation Comments Albumin Lvl (test code = Albumin Lvl) 4.4 3.5-5.0 [facility] OaklandRmcdzrjAJWSOISXBMRU0552-13-30 16:00:00 Test Item Value Reference Range Interpretation Comments ALT (test code = ALT) 40 See_Comment [Auto mated message] The system which ge nerated this result transmit vero reference range : <=65. The reference range was not used to interpr et this result as jakob l/abnormal. [facility] OaklandTpgpbbnDMLLIGFEZGDV8533-58-80 16:00:00 Test Item Value Reference Range Interpretation Comments AST (test code = AST) 29 See_Comment [Auto mated message] The system which ge nerated this result transmit vero reference range : <=37. The reference range was not used to interpr et this result as jakob l/abnormal. [facility] OaklandZkdybtuNEYGBZRWTCNM3562-80-18 16:00:00 Test Item Value Reference Range Interpretation Comments Alk Phos (test code = Alk Phos) 79 39-136 [facility]IvygwblWRVOBEOIQSIY6134-77-26 16:00:00 Test Item Value Reference Range Interpretation Comments Bili Total (test code = Bili Total) 0.3 0.2-1.3 [facility] OaklandSzysxvoNLLBZEGBHTJI2839-74-70 16:00:00 Test Item Value Reference Range Interpretation Comments eGFR (test code = eGFR) 78 [facility]kxswafSTEPHUYEBALES5950-02-78 16:00:00 Test Item Value Reference Range Interpretation Comments S Preg (test code = S Negative *NA*(07/17/19 Preg) 11:00 AM) [facility] CenterDdsgkkeEEQZCEWYWM8841-53-62 16:00:00 Test Item Value Reference Range Interpretation Comments WBC (test code = WBC) 6.9 3.7-10.4 [facility] CenterYmnnpmbUBXYILCEGF4788-88-35 16:00:00 Test Item Value Reference Range Interpretation Comments RBC (test code = RBC) 4.93 4.20-5.40 [facility] CenterXrboimlGKKFAMSSPV6051-90-17 16:00:00 Test Item Value Reference Range Interpretation Comments Hgb (test code = Hgb) 14.5 12.0-16.0 [facility] CenterCsawvxcSYUTNIZPZE0354-93-44 16:00:00 Test Item Value Reference Range Interpretation Comments Hct (test code = Hct) 41.6 36.0-48.0 [facility] CenterJoiectmCSYMOBTKPZ6793-77-40 16:00:00 Test Item Value Reference Range Interpretation Comments MCV (test code = MCV) 84.4 80.0-98.0 [facility] CenterOmtgxwrIPMOCBXRJY7604-79-14 16:00:00 Test Item Value Reference Range Interpretation Comments MCH (test code = MCH) 29.5 pg 27.0-31.0 [facility] CenterDfwqftaYZXIIKHDXB8199-85-50 16:00:00 Test Item Value Reference Range Interpretation Comments MCHC (test code = MCHC) 35.0 32.0-36.0 [facility] CenterDnexvdbFKHYQAGSCQ8144-36-28 16:00:00 Test Item Value Reference Range Interpretation Comments RDW (test code = RDW) 13.2 11.5-14.5 [facility] CenterPilsdnvGPJTKRVKOI8063-18-66 16:00:00 Test Item Value Reference Range Interpretation Comments Platelet (test code = Platelet) 243 133-450 [facility] CenterZgxkgitAGJSHCELQE9613-26-67 16:00:00 Test Item Value Reference Range Interpretation Comments MPV (test code = MPV) 8.2 7.4-10.4 [facility] CenterNkrfkpzIDQYKCZJLU2997-43-34 16:00:00 Test Item Value Reference Range Interpretation Comments Segs (test code = Segs) 65.0 45.0-75.0 [facility] CenterYahcjebYQZJAFDPYK2623-68-50 16:00:00 Test Item Value Reference Range Interpretation Comments Lymphocytes (test code = Lymphocytes) 29.0 20.0-40.0 [facility] CenterLntyvxkFEXLHJIJDV4222-50-70 16:00:00 Test Item Value Reference Range Interpretation Comments Monocytes (test code = Monocytes) 4.9 2.0-12.0 [facility] CenterAltkabsLXMLLUYIUH5080-89-90 16:00:00 Test Item Value Reference Range Interpretation Comments Eosinophils (test code = 0.1 See_Comment [A utomated message] The Eosinophils) system which ge nerated this result tra nsmitted reference range : <=4.0. The reference r suzie was not used to int erpret this result as normal/abnormal . [facility] CenterEkvtertTOYRBBMMES5693-56-75 16:00:00 Test Item Value Reference Range Interpretation Comments Basophils (test code = 1.0 See_Comment [Aut omated message] The Basophils) system which ge nerated this result tra nsmitted reference range : <=1.0. The reference r suzie was not used to int erpret this result as normal/abnormal . [facility] CenterVoswpdjDOZOAZLGHT1610-96-74 16:00:00 Test Item Value Reference Range Interpretation Comments Neutrophils # (test code = Neutrophils 4.5 1.5-8.1 #) [facility] CenterUzkvvjvZNIDOZOZNG8964-72-92 16:00:00 Test Item Value Reference Range Interpretation Comments Lymphocytes # (test code = Lymphocytes 2.0 1.0-5.5 #) [facility] CenterArucncnSCOGPBINEY8841-83-11 16:00:00 Test Item Value Reference Range Interpretation Comments Monocytes # (test code 0.3 See_Comment [Aut omated message] The = Monocytes #) system which generated this result tra nsmitted reference range : <=0.8. The reference r suzie was not used to int erpret this result as normal/abnormal . [facility]2019-10-19 16:00:00 Test Item Value Reference Range Interpretation Comments UA Blood (test code = Negative (07/17/19 11:00 UA Blood) AM) [facility]2019-10-19 16:00:00 Test Item Value Reference Range Interpretation Comments UA Nitrite (test code Negative (07/17/19 = UA Nitrite) 11:00 AM) [facility]2019-10-19 16:00:00 Test Item Value Reference Range Interpretation Comments UA Leuk Est (test Negative (07/17/19 11:00 code = UA Leuk Est) AM) [facility]2019-10-19 16:00:00 Test Item Value Reference Range Interpretation Comments UA WBC (test code = no gt See_Comment [Automa vero message] The UA WBC) system which ge nerated this result transmit vero reference range : <=5. The reference range was not used to interpr et this result as jakob l/abnormal. [facility] [id number] 16:00:00 Test Item Value Reference Range Interpretation Comments UA RBC (test code = 1 See_Comment [Automa vero message] The UA RBC) system which ge nerated this result transmit vero reference range : <=2. The reference range was not used to interpr et this result as jakob l/abnormal. [facility] [id number] 16:00:00 Test Item Value Reference Range Interpretation Comments UA Bacteria (test code = UA Occasional /HPF Bacteria) [facility] [id number] 16:00:00 Test Item Value Reference Range Interpretation Comments UA Sq Epi (test code = UA Sq Epi) None Seen [facility] HospitalLswbentONZMBUQXRL1573-42-23 16:00:00 Test Item Value Reference Range Interpretation Comments Basophils # (test code 0.1 See_Comment [Aut omated message] The = Basophils #) system which generated this result tra nsmitted reference range : <=0.2. The reference r suzie was not used to int erpret this result as normal/abnormal . [facility] [id number] 16:00:00 Test Item Value Reference Range Interpretation Comments UA Color (test code = UA Color) STRAW [facility]ann[facility] [id number] 16:00:00 Test Item Value Reference Range Interpretation Comments UA Urobilinogen (test code = UA <=1.0 mg/dL 0.1-1.0 Urobilinogen) [facility] ZFEGYHQ3404-59-14 16:00:00 Test Item Value Reference Range Interpretation Comments Total CK (test code = Total CK) 159 12-[address] [facility] HospitalMsctkriDVABYRWEZPCF4864-03-64 16:00:00 Test Item Value Reference Range Interpretation Comments AGAP (test code = AGAP) 11.6 10.0-20.0 [facility] RsquxzsVBTCWPBYJBSO4187-38-20 16:00:00 Test Item Value Reference Range Interpretation Comments B/C Ratio (test code = B/C Ratio) 11 1 6-[address] [facility] HospitalNhfybayXMWYVJOFUWSY8380-89-82 16:00:00 Test Item Value Reference Range Interpretation Comments Globulin (test code = Globulin) 3.5 2.7-4.2 [facility]UnufwuwYASUJYOZNLGX6010-37-73 16:00:00 Test Item Value Reference Range Interpretation Comments A/G Ratio (test code = A/G Ratio) 1.3 1 0.7-1.6 [facility] OaklandBsjayooZMKRFWEAZRGP5116-91-75 16:00:00 Test Item Value Reference Range Interpretation Comments Glucose Lvl (test code = Glucose Lvl) 89 70-99 [facility]XrgetcbLLQOOKCZPDLU2830-82-97 16:00:00 Test Item Value Reference Range Interpretation Comments BUN (test code = BUN) 10 7-22 [facility] OaklandZmzvvniFVNZLZPUZVTN7429-66-25 16:00:00 Test Item Value Reference Range Interpretation Comments Creatinine Lvl (test code = Creatinine 0.90 0.50-1.40 Lvl) [facility]NbhtdziBUWMPJQTPU0801-76-21 16:00:00 Test Item Value Reference Range Interpretation Comments Valproic Acid Lvl (test code = Valproic 44 50-100 Acid Lvl) [facility]EltpqnzQLDRKILMVRVL5646-24-29 16:00:00 Test Item Value Reference Range Interpretation Comments Sodium Lvl (test code = Sodium Lvl) 138 135-145 [facility] OaklandUduocrzNMGGZCDHTXUX0085-42-90 16:00:00 Test Item Value Reference Range Interpretation Comments Potassium Lvl (test code = Potassium 4.6 3.5-5.1 Lvl) [facility] OaklandQgecuejYHJAPHXOHTAP5916-69-65 16:00:00 Test Item Value Reference Range Interpretation Comments Chloride Lvl (test code = Chloride Lvl) 106 95-109 [facility]MrqhbcqQJXQUDYWAFBX4253-09-65 16:00:00 Test Item Value Reference Range Interpretation Comments CO2 (test code = CO2) 25 24-32 [facility]NqwzrrpYYJRARSAHWDZ2541-84-15 16:00:00 Test Item Value Reference Range Interpretation Comments Calcium Lvl (test code = Calcium Lvl) 8.7 8.5-10.5 [facility] OaklandVekoypxJMHEXKMUYTOT0489-84-20 16:00:00 Test Item Value Reference Range Interpretation Comments Total Protein (test code = Total 7.9 6.4-8.4 Protein) [facility] OaklandUzehzymIPRGVROEJWJX9455-67-42 16:00:00 Test Item Value Reference Range Interpretation Comments Albumin Lvl (test code = Albumin Lvl) 4.4 3.5-5.0 [facility] OaklandTuapozeUULSGNZQKZZQ3903-42-86 16:00:00 Test Item Value Reference Range Interpretation Comments ALT (test code = ALT) 40 See_Comment [Auto mated message] The system which ge nerated this result transmit vero reference range : <=65. The reference range was not used to interpr et this result as jakob l/abnormal. [facility] OaklandKhlwaouYBKQTIPJVTFV7875-50-37 16:00:00 Test Item Value Reference Range Interpretation Comments AST (test code = AST) 29 See_Comment [Auto mated message] The system which ge nerated this result transmit vero reference range : <=37. The reference range was not used to interpr et this result as jakob l/abnormal. [facility] OaklandDkbrnvwBGQEQPIPSTCY5957-14-43 16:00:00 Test Item Value Reference Range Interpretation Comments Alk Phos (test code = Alk Phos) 79 39-136 [facility] IOWUS3736-37-48 16:00:00 Test Item Value Reference Range Interpretation Comments UA Turbidity (test code = Clear (07/17/19 UA Turbidity) 11:00 AM) [facility]IgamnjdRPEOMSGPHVKD6372-13-69 16:00:00 Test Item Value Reference Range Interpretation Comments Bili Total (test code = Bili Total) 0.3 0.2-1.3 [facility] OaklandNaggavgSNJNISDKVHIL9068-04-36 16:00:00 Test Item Value Reference Range Interpretation Comments eGFR (test code = eGFR) 78 [facility]MfzoznjCBKHNZVOJTHPH6976-58-66 16:00:00 Test Item Value Reference Range Interpretation Comments S Preg (test code = S Negative *NA*(07/17/19 Preg) 11:00 AM) [facility] CenterZxslmcbPHSRNNGOPY1393-88-90 16:00:00 Test Item Value Reference Range Interpretation Comments WBC (test code = WBC) 6.9 3.7-10.4 [facility] CenterOvbovvnDVSWURLBEA4321-42-56 16:00:00 Test Item Value Reference Range Interpretation Comments RBC (test code = RBC) 4.93 4.20-5.40 [facility] CenterXzboldjNGQMVSZKHF0401-73-75 16:00:00 Test Item Value Reference Range Interpretation Comments Hgb (test code = Hgb) 14.5 12.0-16.0 [facility] CenterHzsugyrNAAOBZUQKZ9303-71-48 16:00:00 Test Item Value Reference Range Interpretation Comments Hct (test code = Hct) 41.6 36.0-48.0 [facility] CenterPsagcegLQTIDAWRSQ0205-88-16 16:00:00 Test Item Value Reference Range Interpretation Comments MCV (test code = MCV) 84.4 80.0-98.0 [facility] CenterMeivhriWRVVMNTTPZ3059-36-36 16:00:00 Test Item Value Reference Range Interpretation Comments MCH (test code = MCH) 29.5 pg 27.0-31.0 [facility]TgidoxfFJUCOGQFEJ9645-00-50 16:00:00 Test Item Value Reference Range Interpretation Comments MCHC (test code = MCHC) 35.0 32.0-36.0 [facility]2019-10-19 16:00:00 Test Item Value Reference Range Interpretation Comments UA Spec Grav (test code = UA Spec 1.002 1 Grav) [facility] CenterYcxsrwrLZJQPDLIZA2321-53-45 16:00:00 Test Item Value Reference Range Interpretation Comments RDW (test code = RDW) 13.2 11.5-14.5 [facility] CenterEcvydtbOLOIZENQKJ1916-97-42 16:00:00 Test Item Value Reference Range Interpretation Comments Platelet (test code = Platelet) 243 133-450 [facility] CenterAmudkcgMKNYMGMZLN2892-33-47 16:00:00 Test Item Value Reference Range Interpretation Comments MPV (test code = MPV) 8.2 7.4-10.4 [facility] CenterAynfafuEGFWZYKIRL8594-84-52 16:00:00 Test Item Value Reference Range Interpretation Comments Segs (test code = Segs) 65.0 45.0-75.0 [facility] CenterKkjywtqYKZOTFYPZC8155-94-24 16:00:00 Test Item Value Reference Range Interpretation Comments Lymphocytes (test code = Lymphocytes) 29.0 20.0-40.0 [facility] CenterKvadrsgKRGLRKLEPF0251-29-95 16:00:00 Test Item Value Reference Range Interpretation Comments Monocytes (test code = Monocytes) 4.9 2.0-12.0 [facility] CenterDsabddzYNAVQQPBJI7452-89-35 16:00:00 Test Item Value Reference Range Interpretation Comments Eosinophils (test code = 0.1 See_Comment [A utomated message] The Eosinophils) system which ge nerated this result tra nsmitted reference range : <=4.0. The reference r suzie was not used to int erpret this result as normal/abnormal . [facility] CenterTpiwxpnJJQRTCTFIS8330-06-19 16:00:00 Test Item Value Reference Range Interpretation Comments Basophils (test code = 1.0 See_Comment [Aut omated message] The Basophils) system which ge nerated this result tra nsmitted reference range : <=1.0. The reference r suzie was not used to int erpret this result as normal/abnormal . [facility] CenterJsyeiptBLBDZPDGNL7359-44-63 16:00:00 Test Item Value Reference Range Interpretation Comments Neutrophils # (test code = Neutrophils 4.5 1.5-8.1 #) [facility] CenterQmowpnzLCZVXSRHGF7604-02-08 16:00:00 Test Item Value Reference Range Interpretation Comments Lymphocytes # (test code = Lymphocytes 2.0 1.0-5.5 #) [facility]2019-10-19 16:00:00 Test Item Value Reference Range Interpretation Comments UA pH (test code = UA pH) 7.0 1 5.0-8.0 [facility] CenterLobvuiuHPWYTBVTRD4658-17-67 16:00:00 Test Item Value Reference Range Interpretation Comments Monocytes # (test code 0.3 See_Comment [Aut omated message] The = Monocytes #) system which generated this result tra nsmitted reference range : <=0.8. The reference r suzie was not used to int erpret this result as normal/abnormal . [facility] CenterPtumixuPCBDIQUWFY9739-35-28 16:00:00 Test Item Value Reference Range Interpretation Comments Basophils # (test code 0.1 See_Comment [Aut omated message] The = Basophils #) system which generated this result tra nsmitted reference range : <=0.2. The reference r suzie was not used to int erpret this result as normal/abnormal . [facility]LfkrvvnCQAHCQIXGC4065-22-77 16:00:00 Test Item Value Reference Range Interpretation Comments Valproic Acid Lvl (test code = Valproic 44 50-100 Acid Lvl) [facility]2019-10-19 16:00:00 Test Item Value Reference Range Interpretation Comments UA Turbidity (test code = Clear (07/17/19 UA Turbidity) 11:00 AM) [facility]2019-10-19 16:00:00 Test Item Value Reference Range Interpretation Comments UA Spec Grav (test code = UA Spec 1.002 1 Grav) [facility] [id number] 16:00:00 Test Item Value Reference Range Interpretation Comments UA pH (test code = UA pH) 7.0 1 5.0-8.0 [facility] [id number] 16:00:00 Test Item Value Reference Range Interpretation Comments UA Protein (test code = UA Negative mg/dL Protein) [facility] [id number] 16:00:00 Test Item Value Reference Range Interpretation Comments UA Glucose (test code = UA Negative mg/dL Glucose) [facility] [id number] 16:00:00 Test Item Value Reference Range Interpretation Comments UA Ketones (test code = UA Negative mg/dL Ketones) [facility] [id number] 16:00:00 Test Item Value Reference Range Interpretation Comments UA Bili (test code = Negative *NA*(07/17/19 UA Bili) 11:00 AM) [facility] [id number] 16:00:00 Test Item Value Reference Range Interpretation Comments UA Protein (test code = UA Negative mg/dL Protein) [facility]annCARDIAC ARYSIFF9313-33-59 16:00:00 Test Item Value Reference Range Interpretation Comments Total CK (test code = Total CK) 159 12-191 [facility] AND QFDKR2860-49-08 16:00:00 Test Item Value Reference Range Interpretation Comments UA Glucose (test code = UA Negative mg/dL Glucose) [facility] [id number] 16:00:00 Test Item Value Reference Range Interpretation Comments UA Ketones (test code = UA Negative mg/dL Ketones) [facility] [id number] 16:00:00 Test Item Value Reference Range Interpretation Comments UA Bili (test code = Negative *NA*(07/17/19 UA Bili) 11:00 AM) [facility] [id number] 16:00:00 Test Item Value Reference Range Interpretation Comments UA Blood (test code = Negative (07/17/19 11:00 UA Blood) AM) [facility] [id number] 16:00:00 Test Item Value Reference Range Interpretation Comments UA Nitrite (test code Negative (07/17/19 = UA Nitrite) 11:00 AM) [facility] AND [id number] 16:00:00 Test Item Value Reference Range Interpretation Comments UA Leuk Est (test Negative (07/17/19 11:00 code = UA Leuk Est) AM) [facility] AND [id number] 16:00:00 Test Item Value Reference Range Interpretation Comments UA WBC (test code = no gt See_Comment [Automa vero message] The UA WBC) system which ge nerated this result transmit vero reference range : <=5. The reference range was not used to interpr et this result as jakob l/abnormal. [facility] AND [id number] 16:00:00 Test Item Value Reference Range Interpretation Comments UA RBC (test code = 1 See_Comment [Automa vero message] The UA RBC) system which ge nerated this result transmit vero reference range : <=2. The reference range was not used to interpr et this result as jakob l/abnormal. [facility] AND [id number] 16:00:00 Test Item Value Reference Range Interpretation Comments UA Bacteria (test code = UA Occasional /HPF Bacteria) [facility] AND [id number] 16:00:00 Test Item Value Reference Range Interpretation Comments UA Sq Epi (test code = UA Sq Epi) None [facility]en [facility]BaufcqpUPVLDOVVBFSA3726-80-08 16:00:00 Test Item Value Reference Range Interpretation Comments AGAP (test code = AGAP) 11.6 10.0-20.0 [facility] AND [id number] 16:00:00 Test Item Value Reference Range Interpretation Comments UA Color (test code = UA Color) STRAW [facility] AND [id number] 16:00:00 Test Item Value Reference Range Interpretation Comments UA Urobilinogen (test code = UA <=1.0 mg/dL 0.1-1.0 Urobilinogen) [id number] 16:00:00 Test Item Value Reference Range Interpretation Comments B/C Ratio (test code = B/C Ratio) 11 1 6-25 [id number] 16:00:00 Test Item Value Reference Range Interpretation Comments Globulin (test code = Globulin) 3.5 2.7-4.2 [facility] [id number] 16:00:00 Test Item Value Reference Range Interpretation Comments A/G Ratio (test code = A/G Ratio) 1.3 1 0.7-1.[address] [facility]
[2022-07-25] MEDS ORDERED: NA CHLORIDE 0.9% 500 ML ONE (11:27)
[2022-07-25 11:53] LABS: Absolute Lymphocytes (CBC) 2.2 K/uL (0.7-4.9); Hematocrit 42.7 % (36.0-45.0); Lymphocytes % 18.6 % (15.3-44.8); MCV 87.3 fL (80-100); MPV 7.9 fL (7.6-11.3); RBC Red Blood Cell Count 4.89 M/uL (3.86-4.86)
[2022-07-25 12:16] LABS: Albumin 3.9 g/dL (3.4-5.0); Bilirubin Total 0.3 mg/dL (0.2-1.0); Potassium 3.8 mmol/L (3.5-5.1); Protein, Total 7.4 g/dL (6.4-8.2)
[2022-07-25] MEDS ORDERED: ONDANSETRON 4 MG/2 ML VIAL ONE (12:32)
[2022-07-25] MEDS ORDERED: MORPHINE 4 MG/ML SYR ONE (12:32)
[2022-07-25] MEDS ORDERED: LORazepam 2 MG/ML VIAL ONE (12:56)
--- NOTE | 2022-07-25 12:58 | RAD REPORT ---
EXAM DESCRIPTION: CT - Soft Tissue Neck W/Contr CLINICAL HISTORY: Soft tissue swelling, infection suspected, neck xray done Neck pain, swelling COMPARISON: No comparisons TECHNIQUE All CT scans are performed using dose optimization technique as appropriate and may includ e automated exposure control or mA/KV adjustment according to patient size. FINDINGS: Nasopharyngeal tissues are normal in appearance. Fossa Rosenmller are normal. Parapharyngeal fat triangles are symmetric. Tongue base structures are normal. Epiglottis and aryepiglottic folds are normal. Piriform sinuses are well aerated. The vocal cords are normal in appearance. Salivary glands are normal in appearance. Upper lung sutton are clear. Included intracranial contents are unremarkable. Postsurgical hardware is noted anteriorly spanning C5-7. Mild soft tissue swelling anterior to these levels without abscess. IMPRESSION: No acute abnormality is detected.
[2022-07-25] MEDS ORDERED: levETIRAcetam 1,000 MG in NA CHLORIDE 0.9% 100 ML IV ONE (13:30)
--- NOTE | 2022-07-25 13:35 | RAD REPORT ---
EXAM DESCRIPTION: CT - Head C Spine Cap Wo Con - 07/25/2022 1:14 pm CLINICAL HISTORY: Trauma, head and neck injury. Chest, abdomen and pelvis pain. FALL COMPARISON: Soft Tissue Neck W/Contr dated 07/25/2022 TECHNIQUE: CT head without contrast. CT cervical spine without contrast with coronal and sagittal reformatted images. CT chest, abdomen and pelvis without contrast with coronal and sagittal reformatted images of the spi ne. All CT scans are performed using dose optimization technique as appropriate and may include automated exposure control or mA/KV adjustment according to patient size. FINDINGS: CT HEAD WITHOUT CONTRAST: Mild contrast is present in the vasculature, limiting assessment. No intracranial hemorrhage, hydroce phalus or extra-axial fluid collection. No areas of brain edema or midline shift. The paranasal sinuses and mastoids are clear. The calvarium is intact. CT CERVICAL SPINE WITHOUT CONTRAST: No fracture or subluxation. Postsurgical hardware spanning C5-7 The prevertebral soft tissues are nor mal in thickness. CT CHEST, ABDOMEN, PELVIS WITHOUT CONTRAST: NOTE: Lack of contrast is a significant limitation in the assessment of trauma related findings. Spec ifically, solid organ, vascular and bowel evaluation is significantly limited. The lungs are clear.No pneumothorax or pericardial/pleural fluid. No evidence of intra-abdominal visceral injury, free fluid or free air is seen within the above detai led limitations. Small fat containing umbilical hernia. Cholecystectomy clips. No concerning pelvic findings. No fractures. IMPRESSION: Negative for acute traumatic findings within the above detailed limitations.
[2022-07-25] MEDS ORDERED: DIAZEPAM 5 MG TABLET ONE (14:15)
--- NOTE | 2022-07-25 14:16 | EDPHYS ---
Physician Documentation [facility] Name: María Adame Age: 47 yrs Sex: Female : 1975 Arrival Date: 07/25/2022 Time: 10:53 Bed 10 Private MD: Landen Modi HPI: 07/25 14:09 This 47 yrs old Female presents to ER via Ambulatory with complaints of Neck yara swelling, back of head swelling, Dizziness. 14:09 The patient presents with dizziness, generalized weakness. Onset: The symptoms/episode yara began/occurred 2 day(s) ago. Context: occurred at home. Modifying factors: The symptoms are alleviated by nothing. Associated signs and symptoms: The patient has no apparent associated signs or symptoms. Severity of symptoms:. Patient's baseline: Neuro: alert and fully oriented. The patient has not experienced similar symptoms in the past. 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 - Social history:: Smoking status: Patient denies any tobacco usage or history of. Patient/guardian denies using alcohol. - Family history:: not pertinent. ROS: 14:11 Constitutional: Negative for fever, chills, and weight loss, Eyes: Negative for injury, yara pain, redness, and discharge, ENT: Negative for injury, pain, and discharge, Neck: Negative for injury, pain, and swelling, Cardiovascular: Negative for chest pain, palpitations, and edema, Respiratory: Negative for shortness of breath, cough, wheezing, and pleuritic chest pain, Abdomen/GI: Negative for abdominal pain, nausea, vomiting, diarrhea, and constipation, Back: Negative for injury and pain, : Negative for injury, bleeding, discharge, and swelling, MS/Extremity: Negative for injury and deformity, Skin: Negative for injury, rash, and discoloration, Psych: Negative for depression, anxiety, suicide ideation, homicidal ideation, and hallucinations, Allergy/Immunology: Negative for hives, rash, and allergies, Endocrine: Negative for neck swelling, polydipsia, polyuria, polyphagia, and marked weight changes, Hematologic/Lymphatic: Negative for swollen nodes, abnormal bleeding, and unusual bruising. 14:11 Neuro: Positive for seizure activity. Exam: 14:11 Constitutional: This is a well developed, well nourished patient who is awake, alert, yara and in no acute distress. Head/Face: Normocephalic, atraumatic. Eyes: Pupils equal round and reactive to light, extra-ocular motions intact. Lids and lashes normal. Conjunctiva and sclera are non-icteric and not injected. Cornea within normal limits. Periorbital areas with no swelling, redness, or edema. ENT: Nares patent. No nasal discharge, no septal abnormalities noted. Tympanic membranes are normal and external auditory canals are clear. Oropharynx with no redness, swelling, or masses, exudates, or evidence of obstruction, uvula midline. Mucous membranes moist. Chest/axilla: Normal chest wall appearance and motion. Nontender with no deformity. No lesions are appreciated. Cardiovascular: Regular rate and rhythm with a normal S1 and S2. No gallops, murmurs, or rubs. Normal PMI, no JVD. No pulse deficits. Respiratory: Lungs have equal breath sounds bilaterally, clear to auscultation and percussion. No rales, rhonchi or wheezes noted. No increased work of breathing, no retractions or nasal flaring. Abdomen/GI: Soft, non-tender, with normal bowel sounds. No distension or tympany. No guarding or rebound. No evidence of tenderness throughout. Back: No spinal tenderness. No costovertebral tenderness. Full range of motion. Skin: Warm, dry with normal turgor. Normal color with no rashes, no lesions, and no evidence of cellulitis. MS/ Extremity: Pulses equal, no cyanosis. Neurovascular intact. Full, normal range of motion. Neuro: Awake and alert, GCS 15, oriented to person, place, time, and situation. Cranial nerves II-XII grossly intact. Motor strength 5/5 in all extremities. Sensory grossly intact. Cerebellar exam normal. Normal gait. Psych: Awake, alert, with orientation to person, place and time. Behavior, mood, and affect are within normal limits. 14:11 Neck: External neck: is normal, no acute changes, C-spine: appears grossly normal, no acute changes, Thyroid: appears normal, no acute changes, Trachea: is midline with no obvious abnormalities, no acute changes, ROM/movement: is normal, no acute changes. 14:50 ECG was reviewed by the Attending Physician. yara Vital Signs: 10:58 BP 148 / 113; Pulse 77; Resp 18; Temp 97.6(TE); Pulse Ox 96% on R/A; Weight 72.57 kg; ld1 Height 5 ft. 3 in. (160.02 cm); Pain 6/10; 12:30 BP 151 / 101; Pulse 89; Resp 18; Pulse Ox 97% on R/A; ph 14:50 BP 138 / 89; Pulse 82; Resp 18; Temp 98.0; Pulse Ox 99% on R/A; ph 10:58 Body Mass Index 28.34 (72.57 kg, 160.02 cm) ld1 MDM: 11:17 Patient medically screened. yara 14:12 Differential diagnosis: cardiac arrhythmia, generalized weakness, idiopathic dizziness, yara near-syncope. Data reviewed: vital signs, nurses notes, lab test result(s), radiologic studies, CT scan. Data interpreted: electronic device monitor: rate is 77 beats/min, rhythm is regular, Pulse oximetry: on room air is 96 %. Test interpretation: by ED physician or midlevel provider: ECG. Counseling: I had a detailed discussion with the patient and/or guardian regarding: the historical points, exam findings, and any diagnostic results supporting the discharge/admit diagnosis, lab results, radiology results, the need for outpatient follow up. 07/25 11:18 Order name: CBC with Diff; Complete Time: 12:26 [facility] 07/25 11:18 Order name: Comprehensive Metabolic Panel; Complete Time: 12:26 [facility] 07/25 11:18 Order name: Soft Tissue Neck W/Contr CT; Complete Time: 12:59 [facility] 07/25 13:00 Order name: CT Traumagram (Head C Spine CAP wo con); Complete Time: 14:09 [facility] 07/25 13:00 Order name: Seizure Precautions; Complete Time: 13:03 [facility] 07/25 14:14 Order name: EKG; Complete Time: 14:15 [facility] 07/25 14:14 Order name: EKG - Nurse/Tech; Complete Time: 14:43 yara EC:50 Rate is 51 beats/min. Rhythm is regular. QRS Ethel is Normal. WV interval is normal. QRS yara interval is normal. QT interval is normal. No Q waves. T waves are Normal. Clinical impression: NSR w/ Non-specific ST/T Changes, Sinus bradycardia, and No evidence of ischemia. Interpreted by me. Reviewed by me. Administered Medications: 11:45 Drug: NS 0.9% 500 ml Route: IV; Rate: bolus; Site: right antecubital; ph 13:00 Follow up: Response: No adverse reaction; IV Status: Completed infusion; IV Intake: ph 500ml 12:34 Drug: Zofran (Ondansetron) 4 mg Route: IVP; Site: right antecubital; ph 14:44 Follow up: Response: No adverse reaction ph 12:36 Drug: morphine 4 mg Route: IVP; Infused Over: 4 mins; Site: right antecubital; ph 14:44 Follow up: Response: No adverse reaction ph 14:08 Drug: NS 0.9% 1000 ml Route: IV; Rate: 125 ml/hr; Site: right antecubital; ph 14:44 Follow up: Response: No adverse reaction; IV Status: Completed infusion; IV Intake: ph 125ml 14:08 Drug: Keppra (levETIRAcetam) 1000 mg Route: IV; Rate: per protocol; Site: right ph antecubital; 14:30 Follow up: Response: No adverse reaction; IV Status: Completed infusion ph 14:29 Drug: Valium (diazepam) 10 mg Route: PO; ph 14:43 Follow up: Response: No adverse reaction ph Disposition Summary: 07/25/22 14:15 Discharge Ordered Location: Home yara Problem: new yara Symptoms: have improved yara Condition: Stable yara Diagnosis - Epileptic seizures related to external causes yara - Chronic pain, not elsewhere classified yara Followup: yara - With: Private Physician - When: 2 - 3 days - Reason: Recheck today's complaints, Continuance of care, Re-evaluation by your physician Followup: yara - With: Arturo Barraza MD - When: 2 - 3 days - Reason: Recheck today's complaints, Re-evaluation by your physician Discharge Instructions: - Discharge Summary Sheet yara - Chronic Pain, Adult yara - Non-Epileptic Seizures, Adult yara - Seizure, Adult yara - Seizure, Adult, [id number] [facility] Forms: - Medication Reconciliation Form yara - Thank You Letter yara - Antibiotic Education yara - Prescription Opioid Use yara Prescriptions: - Keppra 500 mg Oral Tablet - take 1 tablet by ORAL route every 12 hours; 20 tablet; Refills: 0, Product [facility] Selection Permitted - Valium 5 mg Oral Tablet - take 1 tablet by ORAL route every 8 hours As needed; 9 tablet; Refills: 0, [facility] Product Selection Permitted Signatures: Dispatcher [employer] EDMS Landen Woodward MD MD cha Hall, Patricia RN RN ph Tika Mckee RN RN ld1 Corrections: (The following items were deleted from the chart) 13:04 12:58 Head C Spine MPR Wo Con+CT.RAD.BRZ ordered. EDMS EDMS 13:07 13:04 Head C Spine Cap Wo Con ordered. EDMS EDMS
--- NOTE | 2022-07-25 14:16 | ER ---
Nurse's Notes [facility] Name: María Adame Age: 47 yrs Sex: Female : 1975 Arrival Date: 07/25/2022 Time: 10:53 Bed 10 Private MD: Diagnosis: Epileptic seizures related to external causes;Chronic pain, not elsewhere classified Presentation: 07/25 10:58 Chief complaint: Patient states: My pain management Dr. Hall gave me a steroid and ld1 epidural injection on my C4 \T\ C5 on Friday. Pt reports receiving these shots before - but never had swelling like this. C/O neck swelling \T\ back of head with pressure since this morning. Coronavirus screen: Ebola Screen: No symptoms or risks identified at this time. Initial Sepsis Screen: Does the patient meet any 2 criteria? No. Patient's initial sepsis screen is negative. Does the patient have a suspected source of infection? No. Patient's initial sepsis screen is negative. Risk Assessment: Do you want to hurt yourself or someone else? Patient reports no desire to harm self or others. Onset of symptoms was July 25, 2022. 10:58 Method Of Arrival: Ambulatory ld1 10:58 Acuity: LAM 3 ld1 Triage Assessment: 11:01 General: Appears in no apparent distress. comfortable, Behavior is calm, cooperative, ld1 appropriate for age. Pain: Complains of pain in base of the skull Pain does not radiate. Pain currently is 6 out of 10 on a pain scale. Quality of pain is described as pressure, throbbing. EENT: No signs and/or symptoms were reported regarding the EENT system. Neuro: Level of Consciousness is awake, alert, obeys commands, Oriented to person, place, time, situation. Cardiovascular: Capillary refill < 3 seconds Patient's skin is warm and dry. Respiratory: Airway is patent Respiratory effort is even, unlabored. GI: Abdomen is round non-distended. : No signs and/or symptoms were reported regarding the genitourinary system. Derm: No signs and/or symptoms reported regarding the dermatologic system. Musculoskeletal: No signs and/or symptoms reported regarding the musculoskeletal system. 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 - Social history:: Smoking status: Patient denies any tobacco usage or history of. Patient/guardian denies using alcohol. - Family history:: not pertinent. Screenin:15 Abuse screen: Denies threats or abuse. Denies injuries from another. Nutritional ph screening: No deficits noted. Tuberculosis screening: No symptoms or risk factors identified. Fall Risk None identified. Assessment: 12:55 Reassessment: Upon returning from CT pt had witnessed seizure while attempting to get ph up from wheelchair, multiple staff in room to assist, pt did not fall but was assisted to floor seizure lasted approx 1 min, pt placed on backboard and lifted to stretcher, seizure precautions initiated, friend at bedside called pt's spouse who reported that pt DOES have a hx of seizures but has not had one in some time, VSS when placed on bedside monitor, pt then taken back to [facility] stretcher for trauma gram, was awake when taken. Vital Signs: 10:58 BP 148 / 113; Pulse 77; Resp 18; Temp 97.6(TE); Pulse Ox 96% on R/A; Weight 72.57 kg; ld1 Height 5 ft. 3 in. (160.02 cm); Pain 6/10; 12:30 BP 151 / 101; Pulse 89; Resp 18; Pulse Ox 97% on R/A; ph 14:50 BP 138 / 89; Pulse 82; Resp 18; Temp 98.0; Pulse Ox 99% on R/A; ph 10:58 Body Mass Index 28.34 (72.57 kg, 160.02 cm) ld1 ED Course: 10:53 Patient arrived in ED. mr 11:01 Triage completed. ld1 11:01 Arm band placed on right wrist. ld1 11:12 Dione Magana RN is Primary Nurse. ph 11:15 Patient has correct armband on for positive identification. Bed in low position. Call ph light in reach. Door closed. Noise minimized. 11:17 Landen Woodward MD is Attending Physician. yara 12:50 Soft Tissue Neck W/Contr CT In Process Unspecified. EDMS 13:15 CT Traumagram (Head C Spine CAP wo con) In Process Unspecified. EDMS 14:15 Arturo Barraza MD is Referral Physician. yara 15:05 No provider procedures requiring assistance completed. IV discontinued, intact, ph bleeding controlled, No redness/swelling at site. Pressure dressing applied. Administered Medications: 11:45 Drug: NS 0.9% 500 ml Route: IV; Rate: bolus; Site: right antecubital; ph 13:00 Follow up: Response: No adverse reaction; IV Status: Completed infusion; IV Intake: ph 500ml 12:34 Drug: Zofran (Ondansetron) 4 mg Route: IVP; Site: right antecubital; ph 14:44 Follow up: Response: No adverse reaction ph 12:36 Drug: morphine 4 mg Route: IVP; Infused Over: 4 mins; Site: right antecubital; ph 14:44 Follow up: Response: No adverse reaction ph 14:08 Drug: NS 0.9% 1000 ml Route: IV; Rate: 125 ml/hr; Site: right antecubital; ph 14:44 Follow up: Response: No adverse reaction; IV Status: Completed infusion; IV Intake: ph 125ml 14:08 Drug: Keppra (levETIRAcetam) 1000 mg Route: IV; Rate: per protocol; Site: right ph antecubital; 14:30 Follow up: Response: No adverse reaction; IV Status: Completed infusion ph 14:29 Drug: Valium (diazepam) 10 mg Route: PO; ph 14:43 Follow up: Response: No adverse reaction ph Medication: 11:15 VIS not applicable for this client. ph Intake: 13:00 IV: 500ml; Total: 500ml. ph 14:44 IV: 125ml; Total: 625ml. ph Outcome: 14:15 Discharge ordered by . yara 15:05 Discharged to home via wheelchair. ph 15:05 Condition: good 15:05 Discharge instructions given to patient, Instructed on discharge instructions, follow up and referral plans. medication usage, Demonstrated understanding of instructions, follow-up care, medications, Prescriptions given X 2. 15:06 Patient left the ED. ph Signatures: Dispatcher [employer] EDTX Landen Woodward MD MD cha Rivera, Hawa mr Dione Magana, RN RN ph Tika Mckee RN RN ld1
[2022-07-25 15:36] VITALS: BP 138/89; TEMP 98; O2SAT 99
== END 2022-07-25 15:06 | disposition home or self-care (01) ==
LOC: ER 10:51
DX: G40.509 Epileptic seizures related to external causes, not intractable, without status epilepticus (principal); G89.29 Other chronic pain; Z86.73 Personal history of transient ischemic attack (TIA), and cerebral infarction without residual deficits; Z85.41 Personal history of malignant neoplasm of cervix uteri
CPT/HCPCS: 96365; 96361; 85025; 36415; 80053; 70450; 71250; 72125; 70491; 96375; 99283; Q9967; J1953; J7040; J2405

== ENCOUNTER 2024-06-06 17:10 | Emergency (ER) | payer OTHER ==
--- NOTE | 2024-06-06 17:30 | EDPHYS ---
Physician Documentation [facility] Name: María Serrano Age: 49 yrs Sex: Female : 1975 Arrival Date: 06/06/2024 Time: 17:10 Bed 9 Private MD: CORRIE Physician John Muniz HPI: 06/06 17:28 This 49 yrs old Female presents to ER via Unassigned with complaints of kb Scabies. 17:28 Pt is a 49 year old female who presents for rash that started one month ago. States she kb has tried the cream for scabies twice, has used benadryl and a steroid cream without relief. c/o itching. States she would like a steroid shot to see if that would help because she doesn't know what else to do. States she is the only one in the household that has had the rash . Historical: - Allergies: 17:33 No Known Allergies; tm6 - PMHx: 17:33 cervical cancer; Chronic pain; CVA; GERD; tm6 - PSHx: 17:33 back fusion; Cholecystectomy; oophorectomy; Total abdominal hysterectomy; tm6 - Immunization history:: Client reports receiving the 2nd dose of the Covid vaccine. - Infectious Disease History:: Denies. - Social history:: Smoking status: Patient denies any tobacco usage or history of. ROS: 17:27 Constitutional: As per HPI kb Exam: 17:27 Constitutional: This is a well developed, well nourished patient who is awake, alert, kb and in no acute distress. Head/Face: Normocephalic, atraumatic. ENT: Moist Mucous membranes Cardiovascular: Regular rate Respiratory: Respirations even and unlabored. No increased work of breathing. Talking in full sentences Abdomen/GI: Soft, non-tender. No distention MS/ Extremity: Pulses equal, no cyanosis. Neurovascular intact. Full, normal range of motion. Neuro: Awake and alert, GCS 15, oriented to person, place, time, and situation. Moves all extremities. Normal gait. 17:27 Skin: rash a moderate rash is noted, and is diffusely located, Vital Signs: 17:32 BP 106 / 79; Pulse 79; Resp 19; Temp 97.7(O); Pulse Ox 97% on R/A; Weight 76.2 kg; tm6 Height 5 ft. 3 in. ; Pain 0/10; 17:32 Body Mass Index 29.76 (76.20 kg, 160.02 cm) tm6 17:32 Pain Scale: Adult tm6 MDM: 17:16 Patient medically screened. kb 17:28 Data reviewed: vital signs, nurses notes. kb 17:30 Differential diagnosis: impetigo, allergic reaction, parasite infection. Counseling: I kb had a detailed discussion with the patient and/or guardian regarding the historical points, exam findings, and any diagnostic results supporting the discharge/admit diagnosis, the need for outpatient follow up, a family practitioner, to return to the emergency department if symptoms worsen or persist or if there are any questions or concerns that arise at home. Administered Medications: 17:47 Drug: Dexamethasone IM 10 mg IM once Route: IM; Site: right deltoid; tm6 17:47 Follow up: Response: Medication administered at discharge. tm6 Disposition: 18:40 Co-signature as Attending Physician, John Muniz MD I reviewed the patient's care rt provided by the Advanced Practice Provider and agree with the diagnosis and treatment plan. Disposition Summary: 06/06/24 17:30 Discharge Ordered Notes: Location: Home kb Condition: Stable kb Diagnosis - Rash and other nonspecific skin eruption kb Followup: kb - With: Emergency Department - When: As needed - Reason: Worsening of condition Followup: kb - With: Private Physician - When: 2 - 3 days - Reason: Recheck today's complaints, Continuance of care, Re-evaluation by your physician Discharge Instructions: - Discharge Summary Sheet kb - Rash, Adult, [id number] kb Forms: - Medication Reconciliation Form kb - Antibiotic Education kb - Prescription Opioid Use kb - Patient Portal Instructions kb - Leadership Thank You Letter kb Prescriptions: - Elimite 5 % Topical Cream - apply 1 application TOPICAL route one time Wash after 12 hours.; 60 gram; kb Refills: 0, Product Selection Permitted Signatures: Alejandra Rowe, CAFE ATTENDANT-C CAFE ATTENDANT-John Finley MD MD rt Adele Veliz RN RN tm6
[2024-06-06] MEDS ORDERED: dexAMETHasone 10 MG/ML VIAL ONE (17:44)
--- NOTE | 2024-06-06 17:48 | ER ---
Nurse's Notes [facility] Name: María Serrano Age: 49 yrs Sex: Female : 1975 Arrival Date: 06/06/2024 Time: 17:10 Bed 9 Private MD: Diagnosis: Rash and other nonspecific skin eruption Presentation: 06/06 17:32 Chief complaint: Patient states: about 1 month ago I was diagnosed with scabies. I've tm6 been treated for it two times but it has only gotten worse and it is unbearable. Coronavirus screen: Vaccine status: Patient reports receiving the 2nd dose of the covid vaccine. Ebola Screen: Patient negative for fever greater than or equal to 101.5 degrees Fahrenheit, and additional compatible Ebola Virus Disease symptoms Patient denies exposure to infectious person. Patient denies travel to an Ebola-affected area in the 21 days before illness onset. No symptoms or risks identified at this time. Initial Sepsis Screen: Does the patient meet any 2 criteria? No. Patient's initial sepsis screen is negative. Does the patient have a suspected source of infection? No. Patient's initial sepsis screen is negative. Risk Assessment: Do you want to hurt yourself or someone else? Patient reports no desire to harm self or others. Onset of symptoms is unknown. 17:32 Method Of Arrival: Ambulatory tm6 17:32 Acuity: LAM 4 tm6 Triage Assessment: 17:33 General: Appears uncomfortable, Behavior is calm, cooperative. Pain: Denies pain. EENT: tm6 No signs and/or symptoms were reported regarding the EENT system. Neuro: Level of Consciousness is awake, alert, obeys commands, Oriented to person, place, time, situation. Cardiovascular: Patient's skin is warm and dry. Respiratory: Airway is patent Respiratory effort is even, unlabored, Respiratory pattern is regular, symmetrical. GI: No signs and/or symptoms were reported involving the gastrointestinal system. Abdomen is flat, non-distended. : No signs and/or symptoms were reported regarding the genitourinary system. Derm: Rash noted that is itchy, on back, chest, abdomen and pelvis Reports itching, since x3 months. Musculoskeletal: No signs and/or symptoms reported regarding the musculoskeletal system. Historical: - Allergies: 17:33 No Known Allergies; tm6 - PMHx: 17:33 cervical cancer; Chronic pain; CVA; GERD; tm6 - PSHx: 17:33 back fusion; Cholecystectomy; oophorectomy; Total abdominal hysterectomy; tm6 - Immunization history:: Client reports receiving the 2nd dose of the Covid vaccine. - Infectious Disease History:: Denies. - Social history:: Smoking status: Patient denies any tobacco usage or history of. Screenin:47 [facility] ED Fall Risk Assessment (Adult) History of falling in the last 3 months, tm6 including since admission No falls in past 3 months (0 pts) Confusion or Disorientation No (0 pts) Intoxicated or Sedated No (0 pts) Impaired Gait No (0 pts) Mobility Assist Device Used No (0 pt) Altered Elimination No (0 pt) Score/Fall Risk Level 0 - 2 = Low Risk Oriented to surroundings, Maintained a safe environment, Educated pt \T\ family on fall prevention, incl call for assistance when getting out of bed. Abuse screen: Denies threats or abuse. Denies injuries from another. Nutritional screening: No deficits noted. Tuberculosis screening: No symptoms or risk factors identified. Assessment: 17:35 Reassessment: see triage assessment. tm6 Vital Signs: 17:32 BP 106 / 79; Pulse 79; Resp 19; Temp 97.7(O); Pulse Ox 97% on R/A; Weight 76.2 kg; tm6 Height 5 ft. 3 in. ; Pain 0/10; 17:32 Body Mass Index 29.76 (76.20 kg, 160.02 cm) tm6 17:32 Pain Scale: Adult tm6 ED Course: 17:12 Patient arrived in ED. mr 17:16 Alejandra Rowe FNP-C is PHCP. kb 17:16 John Muniz MD is Attending Physician. kb 17:33 Triage completed. tm6 17:33 Arm band placed on left wrist. tm6 17:47 Patient has correct armband on for positive identification. Provided Education on: use tm6 of prescription. 17:47 No provider procedures requiring assistance completed. Patient did not have IV access tm6 during this emergency room visit. Administered Medications: 17:47 Drug: Dexamethasone IM 10 mg IM once Route: IM; Site: right deltoid; tm6 17:47 Follow up: Response: Medication administered at discharge. tm6 Medication: 17:47 VIS not applicable for this client. tm6 Outcome: 17:30 Discharge ordered by MD. kelley 17:47 Discharged to home ambulatory, with family, tm6 17:47 Condition: stable 17:47 Discharge instructions given to patient, family, Instructed on discharge instructions, follow up and referral plans. medication usage, Demonstrated understanding of instructions, follow-up care, medications, Prescriptions given X 1, 17:48 Patient left the ED. tm6 Signatures: Alejandra Rowe, MAINTENANCE SHOP LABORER-C MAINTENANCE SHOP LABORER-Hawa Cardona, Herbert Reg mr Adele Veliz, RN RN tm6
[2024-06-06 18:09] VITALS: BP 106/79; TEMP 97.7; O2SAT 97
== END 2024-06-06 17:48 | disposition home or self-care (01) ==
LOC: ER 17:10
DX: R21 Rash and other nonspecific skin eruption (principal); G89.29 Other chronic pain; Z86.73 Personal history of transient ischemic attack (TIA), and cerebral infarction without residual deficits; Z85.41 Personal history of malignant neoplasm of cervix uteri
CPT/HCPCS: 96372; 99284; J1100

== ENCOUNTER 2024-12-29 11:20 | Emergency (ER) | payer OTHER ==
[2024-12-29] MEDS ORDERED: ONDANSETRON 4 MG/2 ML VIAL ONE (12:21)
[2024-12-29] MEDS ORDERED: MORPHINE 4 MG/ML SYR ONE (12:22)
[2024-12-29] MEDS ORDERED: NA CHLORIDE 0.9% 1,000 ML ONE (12:22)
[2024-12-29] MEDS ORDERED: FAMOTIDINE 20 MG/2 ML VIAL IV ONE (12:22)
[2024-12-29 12:51] LABS: Absolute Basophils 0.1 K/uL (0-0.5); Absolute Eosinophils 0.3 K/uL (0-0.5); Absolute Lymphocytes (CBC) 1.8 K/uL (0.7-4.9); Absolute Monocytes 0.5 K/uL (0.1-1.3); Basophils % 1.2 % (0-1.3); Eosinophils % 4.1 % (0-4.4); Hematocrit 38.6 % (36.0-45.0); Hemoglobin 13.6 g/dL (12.0-15.0); Lymphocytes % 23.8 % (15.3-44.8); MCHC 35.3 g/dL (32.0-36.0); MCV 84.9 fL (80-100); MPV 8.3 fL (7.6-11.3); Monocytes % 6.2 % (3.3-12.3); Neutrophils % 64.7 % (41.7-73.7); Nucleated Red Blood Cells % 0.1 % (0-0); Platelets 211 thou/uL (152-406); RBC Red Blood Cell Count 4.54 M/uL (3.86-4.86); Red Cell Distribution Width 13.1 % (12.1-15.2)
[2024-12-29 12:59] LABS: Albumin/Globulin Ratio 1.2 (1.1-1.8); Anion Gap 6.7 mEq/L (5.0-15.0); Bilirubin Total 0.5 mg/dL (0.2-1.0); Globulin 3.4 g/dL (2.3-3.5); Potassium 3.7 mEq/L (3.5-5.1); Protein, Total 7.4 g/dL (6.4-8.2)
[2024-12-29 13:27] LABS: Specific Gravity 1.023 (1.005-1.030); Sqamous Epithelial <5 /HPF (None Seen); Transitional Epithelial <5 /HPF (None Seen); Urine Bacteria <20 /HPF (<20); Urine Bilirubin NEGATIVE (Negative); Urine Blood Negative (Negative); Urine Clarity Extremely Turbid (Clear); Urine Color Yellow (Yellow); Urine Culture Reflex Order NOT NEEDED; Urine Glucose NEGATIVE (Negative); Urine Ketones NEGATIVE (Negative); Urine Microscopic Reflex YN ORDER UMIC; Urine Mucus 2+ /HPF (None Seen); Urine Nitrite NEGATIVE (Negative); Urine Protein TRACE (Negative); Urine Urobilinogen Normal (Normal); Urine WBC <5 /HPF (<5); Urine pH 5.5 (5.0-7.0)
--- NOTE | 2024-12-29 13:47 | RAD REPORT ---
EXAMINATION: Abdomen Pelvis W Contrast CLINICAL INDICATION: Female, 49 years old.ABD PAIN TECHNIQUE: CT abdomen and pelvis was performed, after the administration of IV contrast, [facility]. Axial, sagittal and coronal reconstructions were obtained. One or more of the following dose reduction techniques were used: Automated exposure control, adjustment of the mA and/o r kV according to patient size, and/or iterative reconstruction. Unless otherwise specified, incidental findings do not require dedicated imaging follow-up. [id number]. COMPARISON: 07/25/2022 FINDINGS: LOWER CHEST: No acute process identified.No significant pericardial effusion. Breast prosthesesMild c ircumferential thickening of the distal esophagus which could reflect esophagitis. UPPER GI: No significant abnormality. LIVER: No significant focal abnormality. GALLBLADDER/BILE DUCTS: Cholecystectomy. Moderate extrahepatic biliary ductal dilatation. This could be secondary to the post-cholecystectomy state. Recommend correlation with LFT's. If abnormal, consider MRCP for further evaluation. ? PANCREAS: Atrophy but no acute findings. SPLEEN: Unremarkable. ADRENALS: No adrenal masses. KIDNEYS AND URETERS: No hydronephrosis.No suspicious renal mass.Nonobstructing renal calculi. ABDOMINAL AORTA AND OTHER VESSELS: Normal caliber aorta and IVC. PERITONEUM: No abnormal free fluid. No free air. LYMPH NODES: No pathologic lymphadenopathy. ABDOMINAL WALL: Small fat containing umbilical hernia. SMALL BOWEL/COLON: Small bowel has normal course and caliber. No colonic wall thickening or pericolon ic inflammatory changes.Normal appendix. Mild diverticulosis without diverticulitis. Mild formed stool burden. URINARY BLADDER: Underdistended but grossly unremarkable. REPRODUCTIVE ORGANS: Uterus surgically absent. No adnexal abnormality. MUSCULOSKELETAL: Spacer between the fourth and fifth spinous processes. No acute fracture. ADDITIONAL FINDINGS: None. IMPRESSION: No acute findings within the abdomen or pelvis. No appendicitis. Extra hepatic biliary duct dilatation which may be related to post cholecystectomy state. This is sim ilar to 07/25/2022..
--- NOTE | 2024-12-29 14:39 | ER ---
Nurse's Notes [facility] Name: María Serrano Age: 49 yrs Sex: Female : 1975 Arrival Date: 12/29/2024 Time: 11:20 Bed 18 Private MD: Diagnosis: Abdominal pain, unspecified Presentation: 12/29 11:31 Chief complaint: Patient states: Abdominal pain and acid build up for 1 month. "I abuse ll1 laxatives". Coronavirus screen: Client denies travel out of the [place] in the last 14 days. At this time, the client does not indicate any symptoms associated with coronavirus-19. Ebola Screen: Patient denies travel to an Ebola-affected area in the 21 days before illness onset. Initial Sepsis Screen: Does the patient meet any 2 criteria? No. Patient's initial sepsis screen is negative. Does the patient have a suspected source of infection? No. Patient's initial sepsis screen is negative. Risk Assessment: Do you want to hurt yourself or someone else? Patient reports no desire to harm self or others. Onset of symptoms was November 28, 2024. 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 - Infectious Disease History:: Denies. - Social history:: Smoking status: Patient denies any tobacco usage or history of. - Family history:: not pertinent. - Hospitalizations: : No recent hospitalization is reported. Screenin:15 [facility] ED Fall Risk Assessment (Adult) History of falling in the last 3 months, kj2 including since admission No falls in past 3 months (0 pts) Confusion or Disorientation No (0 pts) Intoxicated or Sedated No (0 pts) Impaired Gait No (0 pts) Mobility Assist Device Used No (0 pt) Altered Elimination No (0 pt) Score/Fall Risk Level 0 - 2 = Low Risk Maintained a safe environment, Hourly rounding (assess needs \\T\\ fall precautionary measures) done. Abuse screen: Denies threats or abuse. Denies injuries from another. Nutritional screening: No deficits noted. Tuberculosis screening: No symptoms or risk factors identified. Assessment: 12:10 General: Appears in no apparent distress. Behavior is calm, cooperative. Pain: kj2 Complains of pain in abdominal Pain currently is 5 out of 10 on a pain scale. 12:10 Neuro: Level of Consciousness is awake, alert, obeys commands, Oriented to person, kj2 place, time, situation. Cardiovascular: Respiratory: Airway is patent Respiratory effort is even, unlabored. GI: Bowel sounds present X 4 quads. : No signs and/or symptoms were reported regarding the genitourinary system. 13:02 Reassessment: Patient appears in no apparent distress at this time. Patient and/or kj2 family updated on plan of care and expected duration. Pain level reassessed. Patient is alert, oriented x 3, equal unlabored respirations, skin warm/dry/pink. 14:10 Reassessment: Patient appears in no apparent distress at this time. Patient and/or kj2 family updated on plan of care and expected duration. Pain level reassessed. Patient is alert, oriented x 3, equal unlabored respirations, skin warm/dry/pink. 14:53 Reassessment: Patient appears in no apparent distress at this time. Patient and/or kj2 family updated on plan of care and expected duration. Pain level reassessed. Patient is alert, oriented x 3, equal unlabored respirations, skin warm/dry/pink. Vital Signs: 11:31 BP 95 / 64; Pulse 86; Resp 17; Temp 97.9; Pulse Ox 97% on R/A; Weight 81.65 kg; Height ll1 5 ft. 4 in. ; Pain 8/10; 13:15 BP 95 / 68; Pulse 72; Resp 18; Pulse Ox 100% on R/A; kj2 14:15 BP 98 / 68; Pulse 70; Resp 18; Temp 98; Pulse Ox 100% on R/A; kj2 11:31 Body Mass Index 30.90 (81.65 kg, 162.56 cm) ll1 11:31 Pain Scale: Adult ll1 ED Course: 11:23 Patient arrived in ED. im 11:25 Jose Snow MD is Attending Physician. rn 11:32 Triage completed. ll1 11:32 Arm band placed on. ll1 11:53 Sarika Manjarrez, RN is Primary Nurse. kc6 12:15 Hayley Collins, RN is Primary Nurse. kj2 12:15 Patient has correct armband on for positive identification. Provided Education on: call kj2 light. 12:37 Urinalysis w/ reflexes Sent. kj2 13:20 CT Abd/Pelvis - IV Contrast Only In Process Unspecified. EDMS 14:52 No provider procedures requiring assistance completed. IV discontinued, intact, kj2 bleeding controlled, No redness/swelling at site. Pressure dressing applied. Administered Medications: 12:36 Drug: Famotidine IVP 20 mg IVP once; dilute with 10 mL 0.9% NaCl; give over 2 minutes kj2 Route: IVP; Site: right antecubital; 15:09 Follow up: Response: No adverse reaction kj2 12:36 Drug: Ondansetron IVP 4 mg IVP once; over 2 minutes Route: IVP; Site: right antecubital;kj2 15:10 Follow up: Response: No adverse reaction kj2 12:36 Drug: morphine IVP or IV 4 mg IVP once over 4 mins Route: IVP; Infused Over: 4 mins; kj2 Site: right antecubital; 15:10 Follow up: Response: No adverse reaction kj2 12:36 Drug: NS 0.9% IV 1000 ml IV at 1 bolus Per protocol; to be given as a bolus over 60 kj2 minutes Route: IV; Rate: 1 bolus; Site: right antecubital; 15:10 Follow up: Response: No adverse reaction kj2 15:10 Follow up: IV Status: Completed infusion kj2 15:09 Drug: GI Cocktail without - (Maalox PO 30 ml, Lidocaine Mucous Membrane 2 % 15 kj2 ml) PO once Route: PO; 15:09 Follow up: Response: Medication administered at discharge. kj2 Medication: 13:16 VIS not applicable for this client. kj2 Outcome: 14:38 Discharge ordered by . rn 14:53 Discharged to home ambulatory, with family, kj2 14:53 Condition: stable 14:53 Discharge instructions given to patient, Instructed on discharge instructions, follow up and referral plans. Demonstrated understanding of instructions, follow-up care, 15:11 Patient left the ED. kj2 Signatures: Dispatcher [employer] EDJose Mota MD MD rn Lewis, Lynsay, RN RN ll1 Sarika Manjarrez RN RN kc6 Crystal Meier Krystal, RN RN kj2 Corrections: (The following items were deleted from the chart) 11:30 Allergies: No Known Allergies; [facility] 11:33 11:31 Chief complaint: Patient states: Abdominal pain and acid build up for 1 month [place] [id number]
--- NOTE | 2024-12-29 14:39 | EDPHYS ---
Physician Documentation [facility] Name: María Serrano Age: 49 yrs Sex: Female : 1975 Arrival Date: 12/29/2024 Time: 11:20 Bed 18 Private MD: ED Physician Jose Snow HPI: 12/29 12:17 This 49 yrs old Female presents to ER via Ambulatory with complaints of rn Abdominal Pain. 12:17 The patient presents with abdominal pain in the epigastric area, in the upper abdomen. rn Onset: The symptoms/episode began/occurred 1 month(s) ago. The symptoms do not radiate. Associated signs and symptoms: Pertinent positives: constipation, nausea, Pertinent negatives: blood in stools, chest pain, fever, shortness of breath, vomiting, vomiting blood. The symptoms are described as achy, crampy. Modifying factors: The symptoms are alleviated by nothing, the symptoms are aggravated by touching the area. Severity of pain: At its worst the pain was moderate in the emergency department the pain is unchanged. The patient has not experienced similar symptoms in the past. The patient has not recently seen a physician. Patient reports mid and upper abdominal pain for 1 month. Reports associated heartburn and nausea. Decreased appetite. Also associated with constipation. No blood in stool. No fever or chills. Has seen GI in the past and colonoscopy just revealed polyps. No weight loss. Has already had cholecystectomy. No previous or known pancreas problems.. 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 - Infectious Disease History:: Denies. - Social history:: Smoking status: Patient denies any tobacco usage or history of. - Family history:: not pertinent. - Hospitalizations: : No recent hospitalization is reported. ROS: 12:17 Constitutional: Negative for fever, chills, and weight loss, Eyes: Negative for injury, rn pain, redness, and discharge, Cardiovascular: Negative for chest pain, palpitations, and edema, Respiratory: Negative for shortness of breath, cough, wheezing, and pleuritic chest pain, Abdomen/GI: Positive for abdominal pain with nausea and constipation Back: Negative for injury and pain, : Negative for injury, bleeding, discharge, and swelling, MS/Extremity: Negative for injury and deformity, Neuro: Negative for headache, weakness, numbness, tingling, and seizure, Exam: 12:17 Constitutional: This is a well developed, well nourished patient who is awake, alert, rn and in no acute distress. Cardiovascular: Regular rate and rhythm. No pulse deficits. Respiratory: No increased work of breathing, no retractions or nasal flaring. Abdomen/GI: Soft, mid and epigastric tenderness. No rebound or guarding. No peritoneal signs. MS/ Extremity: Pulses equal, no cyanosis. Neuro: Awake and alert, GCS 15 Vital Signs: 11:31 BP 95 / 64; Pulse 86; Resp 17; Temp 97.9; Pulse Ox 97% on R/A; Weight 81.65 kg; Height ll1 5 ft. 4 in. ; Pain 8/10; 13:15 BP 95 / 68; Pulse 72; Resp 18; Pulse Ox 100% on R/A; kj2 14:15 BP 98 / 68; Pulse 70; Resp 18; Temp 98; Pulse Ox 100% on R/A; kj2 11:31 Body Mass Index 30.90 (81.65 kg, 162.56 cm) ll1 11:31 Pain Scale: Adult ll1 MDM: 11:25 Medical Screening Exam initiated rn 14:36 Differential diagnosis: appendicitis, bowel obstruction, gastritis, gastroesophageal rn reflux disease, non-specific abd pain, pancreatitis, Peptic Ulcer Disease, Perf. Duodenal Ulcer, Perf. Gastric Ulcer. Data reviewed: vital signs, nurses notes, lab test result(s), radiologic studies, CT scan, and as a result, I will discharge patient. Counseling: I had a detailed discussion with the patient and/or guardian regarding the historical points, exam findings, and any diagnostic results supporting the discharge/admit diagnosis, lab results, radiology results, the need for outpatient follow up, to return to the emergency department if symptoms worsen or persist or if there are any questions or concerns that arise at home. Special discussion: Based on the patient's Hx, exam, and Dx evaluation, there is no indication for emergent surgery or inpatient Tx. It is understood by the patient/guardian that if the Sx's persist or worsen they need to return immediately for re-evaluation. I discussed with the patient/guardian in detail that at this point there is no indication for admission to the hospital. It is understood, however, that if the symptoms persist or worsen the patient needs to return immediately for re-evaluation. ED course: No acute findings in blood or CT abdomen pelvis. Patient has appointment with GI for upper and lower scope. Most likely gastritis/peptic ulcer disease/acid related problem. Patient already on acid medication. No evidence of bleeding ulcer. I have personally reviewed all of the results, including but not limited to blood tests and imaging deemed necessary to safely discharge this patient at this time. All results given to and printed out for patient. I personally went over all the results with the patient and answered all questions. Patient will follow-up with PCP and or specialist as discussed. Return precautions given and understood.. 12/29 11:45 Order name: CBC with Diff; Complete Time: 13:29 ll1 12/29 11:45 Order name: CMP; Complete Time: 13:29 ll1 12/29 11:45 Order name: Lipase; Complete Time: 13:29 ll1 12/29 11:46 Order name: Urinalysis w/ reflexes; Complete Time: 13:29 ll1 12/29 11:45 Order name: CT Abd/Pelvis - IV Contrast Only; Complete Time: 13:55 ll1 12/29 11:45 Order name: IV Saline Lock; Complete Time: 12:36 ll1 12/29 11:45 Order name: Labs collected and sent; Complete Time: 12:36 ll1 Administered Medications: 12:36 Drug: Famotidine IVP 20 mg IVP once; dilute with 10 mL 0.9% NaCl; give over 2 minutes kj2 Route: IVP; Site: right antecubital; 15:09 Follow up: Response: No adverse reaction kj2 12:36 Drug: Ondansetron IVP 4 mg IVP once; over 2 minutes Route: IVP; Site: right antecubital;kj2 15:10 Follow up: Response: No adverse reaction kj2 12:36 Drug: morphine IVP or IV 4 mg IVP once over 4 mins Route: IVP; Infused Over: 4 mins; kj2 Site: right antecubital; 15:10 Follow up: Response: No adverse reaction kj2 12:36 Drug: NS 0.9% IV 1000 ml IV at 1 bolus Per protocol; to be given as a bolus over 60 kj2 minutes Route: IV; Rate: 1 bolus; Site: right antecubital; 15:10 Follow up: Response: No adverse reaction kj2 15:10 Follow up: IV Status: Completed infusion kj2 15:09 Drug: GI Cocktail without - (Maalox PO 30 ml, Lidocaine Mucous Membrane 2 % 15 kj2 ml) PO once Route: PO; 15:09 Follow up: Response: Medication administered at discharge. kj2 Disposition Summary: 12/29/24 14:38 Discharge Ordered Notes: Location: Home rn Problem: new rn Symptoms: have improved rn Condition: Stable rn Diagnosis - Abdominal pain, unspecified rn Followup: rn - With: Private Physician - When: As needed - Reason: Recheck today's complaints, Re-evaluation by your physician Discharge Instructions: - Discharge Summary Sheet rn - Abdominal Pain, Adult rn Forms: - Medication Reconciliation Form rn - Antibiotic mergers and acquisitions attorney - Prescription Opioid Use rn - Patient Portal Instructions rn - Leadership Thank You Letter rn Signatures: Dispatcher [employer] EDJose Mota MD MD rn Lewis, Lynsay, RN RN ll1 Hayley Collins RN RN kj2 Corrections: (The following items were deleted from the chart) 11:31 11:30 Allergies: No Known Allergies; ll1 ll1
[2024-12-29] MEDS ORDERED: MAGNES/ALUMIN/SIMET 30ML UCUP ONE (14:57)
[2024-12-29] MEDS ORDERED: LIDOCAINE VISCOUS 2% 10ML ORAL SOLN ONE (14:58)
[2024-12-29 15:18] VITALS: O2SAT 100
[2024-12-29 15:20] VITALS: BP 98/68; TEMP 98
== END 2024-12-29 15:11 | disposition home or self-care (01) ==
LOC: ER 11:20
DX: R10.13 Epigastric pain (principal)
CPT/HCPCS: 96361; 85025; 81001; 36415; 83690; 80053; 74177; 96375; 96374; 99284; Q9967; J2405; J7030

== ENCOUNTER 2025-01-04 12:08 | Emergency (ER) | payer OTHER ==
[2025-01-04] MEDS ORDERED: NA CHLORIDE 0.9% 1,000 ML ONE (12:33)
[2025-01-04] MEDS ORDERED: ONDANSETRON 4 MG/2 ML VIAL ONE (12:33)
[2025-01-04 12:46] LABS: Absolute Basophils 0.1 K/uL (0-0.5); Absolute Eosinophils 0.5 K/uL (0-0.5); Absolute Lymphocytes (CBC) 2.8 K/uL (0.7-4.9); Absolute Monocytes 0.4 K/uL (0.1-1.3); Absolute Neutrophil 6.4 K/uL (1.8-8.0); Eosinophils % 4.8 % (0-4.4); Hematocrit 40.5 % (36.0-45.0); Hemoglobin 14.2 g/dL (12.0-15.0); MCH 29.7 pg (27.0-35.0); MCV 84.9 fL (80-100); MPV 8.1 fL (7.6-11.3); Monocytes % 4.4 % (3.3-12.3); Neutrophils % 62.8 % (41.7-73.7); Nucleated Red Blood Cells % 0.1 % (0-0); Platelets 254 thou/uL (152-406); RBC Red Blood Cell Count 4.77 M/uL (3.86-4.86); Red Cell Distribution Width 13.1 % (12.1-15.2)
[2025-01-04 13:11] LABS: Albumin 4.1 g/dL (3.4-5.0); Albumin/Globulin Ratio 1.2 (1.1-1.8); Anion Gap 9.8 mEq/L (5.0-15.0); Bilirubin Total 0.4 mg/dL (0.2-1.0); Globulin 3.4 g/dL (2.3-3.5); Potassium 3.8 mEq/L (3.5-5.1); Protein, Total 7.5 g/dL (6.4-8.2)
[2025-01-04] MEDS ORDERED: DIAZEPAM 2 MG TABLET ONE (14:10)
[2025-01-04] MEDS ORDERED: TRAMADOL HCL 50 MG TAB ONE (16:21)
--- NOTE | 2025-01-04 16:37 | RAD REPORT ---
EXAMINATION: MR CHOLANGIOGRAM CLINICAL INDICATION: Abdominal pain TECHNIQUE: Magnetic resonance cholangiopancreatogram was performed. 3D MIP reconstruction done. COMPARISON: December 29, 2024 CT FINDINGS: Cholecystectomy. Mild prominence of the extrahepatic biliary tree. A filling defect within the bile d uct is not seen. A stricture not visualized. Pancreatic duct unremarkable. IMPRESSION: Cholecystectomy Mild dilatation of the extrahepatic biliary tree probably physiologic. This should be correlated clin ically and with appropriate lab values
--- NOTE | 2025-01-04 16:52 | ER ---
Nurse's Notes [facility] Name: María Serrano Age: 50 yrs Sex: Female : 1975 Arrival Date: 01/04/2025 Time: 12:08 Bed 18 Private MD: Diagnosis: Upper abdominal pain, unspecified Presentation: 01/04 12:15 Chief complaint: Patient states: she has been having abdominal pain and nausea/vomiting ap3 for approx one month. however patient states that it has been getting worse for the last week. patient currently rates her pain as a 7/10 on the pain scale. patient reports that she is unable to keep foods down. Coronavirus screen: At this time, the client does not indicate any symptoms associated with coronavirus-19. Ebola Screen: No symptoms or risks identified at this time. Initial Sepsis Screen: Does the patient meet any 2 criteria? No. Patient's initial sepsis screen is negative. Does the patient have a suspected source of infection? No. Patient's initial sepsis screen is negative. Risk Assessment: Do you want to hurt yourself or someone else? Patient reports no desire to harm self or others. Onset of symptoms is unknown. 12:15 Method Of Arrival: Ambulatory ap3 12:15 Acuity: LAM 3 ap3 Triage Assessment: 12:18 General: Appears in no apparent distress. Behavior is calm, cooperative, appropriate ap3 for age. Pain: Complains of pain in right upper quadrant Pain currently is 7 out of 10 on a pain scale. Neuro: Level of Consciousness is awake, alert, obeys commands, Oriented to person, place, time, situation, Appropriate for age. Cardiovascular: Patient's skin is warm and dry. Respiratory: Airway is patent Respiratory effort is even, unlabored, Respiratory pattern is regular, symmetrical. GI: Reports upper abdominal pain, nausea, vomiting. 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 Flu vaccine is not up to date. - Infectious Disease History:: Denies. - Social history:: Smoking status: Patient denies any tobacco usage or history of. - Family history:: not pertinent. - Hospitalizations: : No recent hospitalization is reported. Screenin:18 [facility] ED Fall Risk Assessment (Adult) History of falling in the last 3 months, ap3 including since admission No falls in past 3 months (0 pts) Confusion or Disorientation No (0 pts) Intoxicated or Sedated No (0 pts) Impaired Gait No (0 pts) Mobility Assist Device Used No (0 pt) Altered Elimination No (0 pt) Score/Fall Risk Level 0 - 2 = Low Risk Oriented to surroundings, Maintained a safe environment, Educated pt \T\ family on fall prevention, incl call for assistance when getting out of bed, Assessed \T\ reinforced patient's understanding of fall precautions, Hourly rounding (assess needs \T\ fall precautionary measures) done, Used ambulatory aids as needed (educated on \T\ assisted with). Abuse screen: Denies threats or abuse. Nutritional screening: No deficits noted. Tuberculosis screening: No symptoms or risk factors identified. Assessment: 12:45 General: Appears uncomfortable, well groomed, well developed, well nourished, Behavior me1 is calm, cooperative, appropriate for age, Reports she has been having abdominal pain and nausea/vomiting for approx one month. however patient states that it has been getting worse for the last week. patient currently rates her pain as a 7/10 on the pain scale. patient reports that she is unable to keep foods down. Pain: Complains of pain in right upper quadrant Pain does not radiate. Pain currently is 7 out of 10 on a pain scale. Quality of pain is described as squeezing, Pain began gradually, Is continuous. Neuro: Level of Consciousness is awake, alert, obeys commands, Oriented to person, place, time, situation, Appropriate for age. Cardiovascular: Patient's skin is warm and dry. Respiratory: Airway is patent Respiratory effort is even, unlabored, Respiratory pattern is regular, symmetrical. GI: Bowel sounds present X 4 quads. Abd is soft X 4 quads Reports upper abdominal pain, anorexia, nausea, vomiting, since about a month ago, worse over the past week. : No signs and/or symptoms were reported regarding the genitourinary system. EENT: No signs and/or symptoms were reported regarding the EENT system. Derm: Skin is intact, is healthy with good turgor, Skin is pink, warm \T\ dry. Musculoskeletal: No signs and/or symptoms reported regarding the musculoskeletal system. Vital Signs: 12:15 BP 128 / 97; Pulse 89; Resp 18; Temp 98.6(O); Pulse Ox 98% on R/A; Weight 81.65 kg; ap3 Height 5 ft. 4 in. ; Pain 7/10; 13:00 BP 138 / 73; Pulse 78; Resp 16; Pulse Ox 96% ; me1 14:00 BP 133 / 70; Pulse 72; Resp 15; Pulse Ox 97% ; me1 15:00 BP 135 / 53; Pulse 68; Resp 16; Pulse Ox 99% ; me1 16:00 BP 101 / 66; Pulse 66; Resp 15; Pulse Ox 96% ; me1 17:00 BP 105 / 62; Pulse 68; Resp 16; Temp 98; Pulse Ox 99% ; me1 12:15 Body Mass Index 30.90 (81.65 kg, 162.56 cm) ap3 12:15 Pain Scale: Adult ap3 ED Course: 12:10 Patient arrived in ED. im 12:12 Jose Snow MD is Attending Physician. rn 12:17 Triage completed. ap3 12:19 Arm band placed on left wrist. ap3 12:28 Carolina Peralta, RN is Primary Nurse. me1 12:36 Initial lab(s) drawn, by me, sent to lab. Inserted saline lock: 22 gauge in right me1 antecubital area, using aseptic technique. 12:37 CBC with Diff Sent. me1 12:37 CMP Sent. me1 12:37 Lipase Sent. me1 12:45 Patient has correct armband on for positive identification. Bed in low position. Call me1 light in reach. Side rails up X 1. Provided Education on: POC. Verbalized understanding. Client placed on continuous cardiac and pulse oximetry monitoring. NIBP monitoring applied. Pulse ox on. NIBP on. 12:45 No provider procedures requiring assistance completed. me1 15:47 Cholangiogram In Process Unspecified. EDMS 16:51 Lamine Garcia MD is Referral Physician. rn 17:29 IV discontinued, intact, bleeding controlled, No redness/swelling at site. Pressure me1 dressing applied. Administered Medications: 12:43 Drug: Ondansetron IVP 4 mg IVP once; over 2 minutes Route: IVP; Site: right antecubital;me1 14:12 Follow up: Response: No adverse reaction; Nausea is decreased me1 12:43 Drug: NS 0.9% IV 1000 ml IV at 1 bolus Per protocol; to be given as a bolus over 60 me1 minutes Route: IV; Rate: 1 bolus; Site: right antecubital; 17:18 Follow up: Response: No adverse reaction; IV Status: Completed infusion; IV Intake: me1 1000ml 14:12 Drug: Diazepam PO 2 mg PO once Route: PO; me1 15:40 Follow up: Response: No adverse reaction me1 16:21 Drug: traMADol PO 50 mg PO once Route: PO; me1 17:08 Follow up: Response: No adverse reaction; Pain is decreased me1 Medication: 12:45 VIS not applicable for this client. me1 Intake: 17:18 IV: 1000ml; Total: 1000ml. me1 Outcome: 16:52 Discharge ordered by . rn 17:29 Discharged to home ambulatory, me1 17:29 Condition: stable 17:29 Discharge instructions given to patient, Instructed on discharge instructions, follow up and referral plans. Demonstrated understanding of instructions, follow-up care, 17:29 Patient left the ED. me1 Signatures: Dispatcher [employer] EDJose Mota MD MD rn Prokisch, Amanda, RN RN ap3 Crystal Meier Michelle RN RN me1 Corrections: (The following items were deleted from the chart) 12:45 12:15 Chief complaint: Patient states: she has been having abdominal pain and me1 nausea/vomiting for approx one month. however patient states that it has been getting worse for the last week. patient currently rates her pain as a 7/10 on the pain scale. patient reports that she is unable to keep foods down ap3
--- NOTE | 2025-01-04 16:52 | EDPHYS ---
Physician Documentation [facility] Name: María Serrano Age: 50 yrs Sex: Female : 1975 Arrival Date: 01/04/2025 Time: 12:08 Bed 18 Private MD: ED Physician Jose Snow HPI: 01/04 13:33 This 50 yrs old Female presents to ER via Ambulatory with complaints of rn Abdominal Pain. 13:33 The patient presents with abdominal pain in the epigastric area, in the right upper rn quadrant. Onset: The symptoms/episode began/occurred 1 month(s) ago. The symptoms do not radiate. Associated signs and symptoms: Pertinent positives: nausea and vomiting. Modifying factors: The symptoms are alleviated by nothing, the symptoms are aggravated by food. Severity of pain: At its worst the pain was moderate in the emergency department the pain is unchanged. The patient has experienced similar episodes in the past. Patient reports upper abdominal pain, epigastric and right upper quadrant for 1 month. Seen here several days ago with negative blood work and CAT scan. Followed up with GI who recommended MRI of the abdomen, placed it as "urgent", and her insurance would not cover it. When she spoke with clinic regarding this they referred her to emergency room to try and get MRI of abdomen. Reports still having pain with nausea and vomiting. No fever.. 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 Flu vaccine is not up to date. - Infectious Disease History:: Denies. - Social history:: Smoking status: Patient denies any tobacco usage or history of. - Family history:: not pertinent. - Hospitalizations: : No recent hospitalization is reported. ROS: 13:33 Constitutional: Negative for fever, chills, and weight loss, Cardiovascular: Negative rn for chest pain, palpitations, and edema, Respiratory: Negative for shortness of breath, cough, wheezing, and pleuritic chest pain, Abdomen/GI: Positive for abdominal pain with nausea and vomiting Back: Negative for injury and pain, MS/Extremity: Negative for injury and deformity, Skin: Negative for injury, rash, and discoloration, Neuro: Negative for headache, weakness, numbness, tingling, and seizure, Exam: 13:33 Constitutional: This is a well developed, well nourished patient who is awake, alert, rn and in no acute distress. Abdomen/GI: Soft, epigastric and right upper quadrant tenderness. Holding upper abdomen Vital Signs: 12:15 BP 128 / 97; Pulse 89; Resp 18; Temp 98.6(O); Pulse Ox 98% on R/A; Weight 81.65 kg; ap3 Height 5 ft. 4 in. ; Pain 7/10; 13:00 BP 138 / 73; Pulse 78; Resp 16; Pulse Ox 96% ; me1 14:00 BP 133 / 70; Pulse 72; Resp 15; Pulse Ox 97% ; me1 15:00 BP 135 / 53; Pulse 68; Resp 16; Pulse Ox 99% ; me1 16:00 BP 101 / 66; Pulse 66; Resp 15; Pulse Ox 96% ; me1 17:00 BP 105 / 62; Pulse 68; Resp 16; Temp 98; Pulse Ox 99% ; me1 12:15 Body Mass Index 30.90 (81.65 kg, 162.56 cm) ap3 12:15 Pain Scale: Adult ap3 MDM: 12:12 Medical Screening Exam initiated rn 13:36 ED course: Patient declines pain medication. rn 16:49 Differential diagnosis: gastritis, gastroesophageal reflux disease, non-specific abd rn pain, pancreatitis. Data reviewed: vital signs, nurses notes, lab test result(s), radiologic studies, MRI, and as a result, I will discharge patient. Counseling: I had a detailed discussion with the patient and/or guardian regarding the historical points, exam findings, and any diagnostic results supporting the discharge/admit diagnosis, lab results, radiology results, the need for outpatient follow up, to return to the emergency department if symptoms worsen or persist or if there are any questions or concerns that arise at home. Special discussion: I discussed with the patient/guardian in detail that at this point there is no indication for admission to the hospital. It is understood, however, that if the symptoms persist or worsen the patient needs to return immediately for re-evaluation. Based on the history and exam findings, there is no indication for further emergent testing or inpatient evaluation. I discussed with the patient/guardian the need to see the coal tram driver for further evaluation of the symptoms. ED course: MRCP negative for retained stone or acute abnormality. Liver function test unremarkable. Patient feels better. Will discharge home to get endoscopy and colonoscopy as planned per GI. Return precautions given and understood.. 01/04 12:18 Order name: CBC with Diff; Complete Time: 13:18 rn 01/04 12:18 Order name: CMP; Complete Time: 13:18 rn 01/04 12:18 Order name: Lipase; Complete Time: 13:18 rn 01/04 13:27 Order name: Cholangiogram; Complete Time: 16:45 EDMS 01/04 12:18 Order name: IV Saline Lock; Complete Time: 12:37 rn 01/04 12:18 Order name: Labs collected and sent; Complete Time: 12:37 rn Administered Medications: 12:43 Drug: Ondansetron IVP 4 mg IVP once; over 2 minutes Route: IVP; Site: right antecubital;me1 14:12 Follow up: Response: No adverse reaction; Nausea is decreased me1 12:43 Drug: NS 0.9% IV 1000 ml IV at 1 bolus Per protocol; to be given as a bolus over 60 me1 minutes Route: IV; Rate: 1 bolus; Site: right antecubital; 17:18 Follow up: Response: No adverse reaction; IV Status: Completed infusion; IV Intake: me1 1000ml 14:12 Drug: Diazepam PO 2 mg PO once Route: PO; me1 15:40 Follow up: Response: No adverse reaction me1 16:21 Drug: traMADol PO 50 mg PO once Route: PO; me1 17:08 Follow up: Response: No adverse reaction; Pain is decreased me1 Disposition Summary: 01/04/25 16:52 Discharge Ordered Notes: Location: Home rn Problem: an ongoing problem rn Symptoms: have improved rn Condition: Stable rn Diagnosis - Upper abdominal pain, unspecified rn Followup: rn - With: Lamine Garcia MD - When: As needed - Reason: Recheck today's complaints, Re-evaluation by your physician Discharge Instructions: - Discharge Summary Sheet rn - Abdominal Pain, Adult rn - Pain Without a Known Cause rn Forms: - Medication Reconciliation Form rn - Antibiotic learning designer - Prescription Opioid Use rn - Patient Portal Instructions rn - Leadership Thank You Letter rn Signatures: Dispatcher [employer] Jose Pathak MD MD rn Prokisch, Amanda RN RN ap3 Carolina Peralta RN RN me1
[2025-01-04 17:52] VITALS: BP 105/62; TEMP 98; O2SAT 99
== END 2025-01-04 17:29 | disposition home or self-care (01) ==
LOC: ER 12:08
DX: R10.11 Right upper quadrant pain (principal); G89.29 Other chronic pain
CPT/HCPCS: 96361; 85025; 36415; 83690; 80053; 74181; 96374; 99284; J2405; J7030

== ENCOUNTER 2025-06-23 11:56 | Emergency (ER) | payer OTHER ==
[2025-06-23 12:38] LABS: Absolute Lymphocytes (CBC) 2.2 K/uL (0.7-4.9); Hematocrit 37.7 % (36.0-45.0); Hemoglobin 13.1 g/dL (12.0-15.0); MCH 29.6 pg (27.0-35.0); MCHC 34.9 g/dL (32.0-36.0); MCV 84.8 fL (80-100); MPV 7.8 fL (7.6-11.3); Nucleated RBC Absolute Count 0.0 (0-0); Nucleated Red Blood Cells % 0.1 % (0-0); RBC Red Blood Cell Count 4.45 M/uL (3.86-4.86); White Blood Count 9.70 thou/uL (4.3-10.9)
[2025-06-23 12:52] LABS: PT Prothrombin Time 12.4 SECONDS (10-13.0); PTT, Activated Partial Thromb 28.8 SECONDS (27.2-37.4); Protime INR 1.1
[2025-06-23 13:00] LABS: ALT/SGPT 23.0 U/L (13-56); AST/SGOT 15.0 U/L (15-37); Albumin 3.4 g/dL (3.4-5.0); Albumin/Globulin Ratio 1.0 (1.1-1.8); Alkaline Phosphatase 62.0 U/L (45-117); Anion Gap 9.2 mEq/L (5.0-15.0); BUN Blood Urea Nitrogen 9.0 mg/dL (7-18); Bilirubin Indirect, Calculated 0.2 mg/dL (0.2-0.8); Globulin 3.3 g/dL (2.3-3.5); Glucose Level 90.0 mg/dL (74-106); Potassium 3.2 mEq/L (3.5-5.1)
[2025-06-23] MEDS ORDERED: NA CHLORIDE 0.9% 1,000 ML ONE (13:24)
--- NOTE | 2025-06-23 17:35 | ER ---
Nurse's Notes [facility] Name: María Serrano Age: 50 yrs Sex: Female : 1975 Arrival Date: 06/23/2025 Time: 11:56 Bed 15 Private MD: Diagnosis: Overdose of benzodiazepines, uncomplicated Presentation: 06/23 12:06 Chief complaint: Spouse and/or significant other states: came home and found nh2 patient very drowsy. Patient was able to verbalize that she took 12 xanax that are 1mg each and 2 norco 7.5/325mg about 9 am. States she was trying to commit suicide because she is having a lot of trouble with her daughter. Hx of depression. Coronavirus screen: At this time, the client does not indicate any symptoms associated with coronavirus-19. Ebola Screen: No symptoms or risks identified at this time. Initial Sepsis Screen: Does the patient meet any 2 criteria? No. Patient's initial sepsis screen is negative. Does the patient have a suspected source of infection? No. Patient's initial sepsis screen is negative. Risk Assessment: Do you want to hurt yourself or someone else? Patient reports desire/thoughts of hurting themselves or someone else. Provider notified. Onset of symptoms was June 23, 2025 at 09:00. 12:06 Method Of Arrival: Wheelchair nh2 12:06 Acuity: LAM 2 nh2 Triage Assessment: 12:10 General: Appears well groomed, well developed, well nourished, Behavior is cooperative, nh2 drowsy, flat, listless, quiet. Pain: Denies pain. EENT: No signs and/or symptoms were reported regarding the EENT system. Neuro: Level of Consciousness is awake, obeys commands, listless, Oriented to person, place, situation. Cardiovascular: Patient's skin is warm and dry. Respiratory: Airway is patent Respiratory effort is even, unlabored, Respiratory pattern is regular, symmetrical. GI: No signs and/or symptoms were reported involving the gastrointestinal system. : No signs and/or symptoms were reported regarding the genitourinary system. Derm: Skin is intact, is healthy with good turgor, Skin is normal. Musculoskeletal: Circulation, motion, and sensation intact. Range of motion:. 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 - Infectious Disease History:: Denies. - Family history:: not pertinent. - Social history:: Smoking status: Patient denies any tobacco usage or history of. - Hospitalizations: : No recent hospitalization is reported. Screenin:28 [facility] ED Fall Risk Assessment (Adult) History of falling in the last 3 months, db including since admission No falls in past 3 months (0 pts) Confusion or Disorientation No (0 pts) Intoxicated or Sedated No (0 pts) Impaired Gait No (0 pts) Mobility Assist Device Used No (0 pt) Altered Elimination No (0 pt) Score/Fall Risk Level 0 - 2 = Low Risk Oriented to surroundings, Maintained a safe environment. Abuse screen: Denies threats or abuse. Denies injuries from another. Nutritional screening: No deficits noted. Tuberculosis screening: No symptoms or risk factors identified. Assessment: 12:12 Reassessment: Patient appears in no apparent distress at this time. Patient and/or db family updated on plan of care and expected duration. Pain level reassessed. PT PLACED ON NC 2 L. General: Appears in no apparent distress. comfortable, Behavior is calm, cooperative. Neuro: Level of Consciousness is obeys commands, Oriented to person, place, time, situation. Respiratory: Airway is patent Respiratory effort is even, unlabored, Respiratory pattern is regular, symmetrical. 12:38 Reassessment: Patient appears in no apparent distress at this time. Patient and/or db family updated on plan of care and expected duration. Pain level reassessed. REPORTS PT CALLED HIM UPSET AND RECENTLY DEPRESSED. REPORTS NOT HAVING A RELATIONSHIP WITH DAUGHTER AND PT IS UPSET ABOUT IT. PT TOOK XANAX PRIOR TO SPOUSE ARRIVAL WHEN SHE KNEW HE WAS ON THE WAY. 14:00 Reassessment: Patient appears in no apparent distress at this time. Patient and/or db family updated on plan of care and expected duration. Pain level reassessed. Patient is alert, oriented x 3, equal unlabored respirations, skin warm/dry/pink. 15:00 Reassessment: Patient appears in no apparent distress at this time. Patient and/or db family updated on plan of care and expected duration. Pain level reassessed. Patient is alert, oriented x 3, equal unlabored respirations, skin warm/dry/pink. 16:09 Reassessment: Patient appears in no apparent distress at this time. Patient and/or db family updated on plan of care and expected duration. Pain level reassessed. Patient is alert, oriented x 3, equal unlabored respirations, skin warm/dry/pink. General: Appears in no apparent distress. comfortable, Behavior is calm, cooperative. Neuro: Level of Consciousness is obeys commands, Oriented to person, place, time. Respiratory: Airway is patent Respiratory effort is even, unlabored, Respiratory pattern is regular, symmetrical. 17:30 Reassessment: Patient appears in no apparent distress at this time. Patient and/or db family updated on plan of care and expected duration. Pain level reassessed. Patient is alert, oriented x 3, equal unlabored respirations, skin warm/dry/pink. PT REPORTS FEELING BETTER AND NO LONGER HAVING THOUGHTS OF HURTING SELF. STATES FEELS BETTER. REPORTS HAS APPOINTMENT WITH COUNSELOR. FEELS SAFE GOING HOME. DR. SNOW NOTIFIED PT FEELS SAFE AND READY TO GO HOME. 18:00 Reassessment: Patient appears in no apparent distress at this time. Patient and/or db family updated on plan of care and expected duration. Pain level reassessed. Patient is alert, oriented x 3, equal unlabored respirations, skin warm/dry/pink. Psych: 12:00 [place] Suicide Severity Screening: In the past month, have you wished you were db or wished you could go to sleep and not wake up? Patient responds "yes." Based off the client's responses additional C-SSRS screening is required. "In the past month, have you actually had any thoughts of killing yourself?" Patient responds "yes." Based off the client's response additional [place] suicide severity screening questions to be further documented on paper forms. "In your lifetime, have you ever done anything, started to do anything, or prepared to do anything to end your life?" Patient responds "yes." Patient reports suicidal intent occurred greater than 3 months prior. Subjective: Patient's mood is sad, Delusions are denied, Hallucinations are denied Having thoughts of suicide. Plan for suicide is OVERDOSE ON XANX. Objective: Patient is cooperative, Speech is normal, Affect is flat. Interventions:. Safety Checks: Visitors are present. Patient uses benzodiazepines. Commitment: Patient will be a voluntary commitment. Vital Signs: 12:06 BP 110 / 74; Pulse 86; Resp 14; Temp 98.2; Pulse Ox 91% on R/A; Weight 63.5 kg; Height nh2 5 ft. 4 in. ; Pain 0/10; 13:00 BP 106 / 76; Pulse 74; Resp 14; Pulse Ox 97% ; db 14:38 BP 110 / 73; Pulse 69; Resp 14; Pulse Ox 97% ; db 15:00 BP 110 / 80; Pulse 70; Resp 14; Pulse Ox 97% ; db 15:00 BP 110 / 80; Pulse 70; Resp 14; Pulse Ox 97% ; db 16:00 BP 115 / 74; Pulse 71; Resp 14; Pulse Ox 99% on 2 lpm NC; db 18:00 BP 111 / 83; Pulse 66; Resp 18; Temp 98.1; Pulse Ox 97% ; db 12:06 Body Mass Index 24.03 (63.50 kg, 162.56 cm) nh2 12:06 Pain Scale: Adult nh2 ED Course: 11:59 Patient arrived in ED. ty 11:59 Jose Snow MD is Attending Physician. rn 12:06 Natalie Méndez, RN is Primary Nurse. db 12:09 Triage completed. nh2 12:09 EKG done, by operations and maintenance technican. reviewed by Jose Snow MD. ts3 12:09 Arm band placed on Patient placed in an exam room. nh2 12:14 Initial lab(s) drawn, by wy, sent to lab. Inserted saline lock: 20 gauge in right db wrist, using aseptic technique. Blood collected. Flushed with 10 mL NS. 12:29 Patient has correct armband on for positive identification. Bed in low position. Call db light in reach. Side rails up X 1. Provided Education on:. Client placed on continuous cardiac and pulse oximetry monitoring. NIBP monitoring applied. court recording monitor on. Pulse ox on. NIBP on. Warm blanket given. Pillow given. 18:14 No provider procedures requiring assistance completed. IV discontinued, intact, db bleeding controlled, No redness/swelling at site. Administered Medications: 14:10 Drug: NS 0.9% IV 1000 ml IV at 1000 ml once; to be given as a bolus over 60 minutes db Route: IV; Rate: 1000 ml; Site: right antecubital; 18:00 Follow up: Response: No adverse reaction; IV Status: Completed infusion; IV Intake: db 1000ml Medication: 12:43 VIS not applicable for this client. db Intake: 18:00 IV: 1000ml; Total: 1000ml. db Outcome: 17:35 Discharge ordered by . rn 18:14 Discharged to home via wheelchair, with family, db 18:14 Condition: stable 18:14 Discharge instructions given to patient, family, Instructed on discharge instructions, follow up and referral plans. 18:16 Patient left the ED. db Signatures: Jose Snow MD MD rn Benton, Danielle RN RN db Carolina Perlata RN RN me1 Jovanni Pinto Jr, Jonathan RN RN nh2 Юлия Eason ts3 Corrections: (The following items were deleted from the chart) 12:37 12:06 Risk Assessment: Do you want to hurt yourself or someone else? Patient reports no me1 desire to harm self or others. nh2 12:39 12:12 Reassessment: Patient appears in no apparent distress at this time. Patient db and/or family updated on plan of care and expected duration. Pain level reassessed. Patient is alert, oriented x 3, equal unlabored respirations, skin warm/dry/pink. PT PLACED ON NC 2 L db
--- NOTE | 2025-06-23 17:35 | EDPHYS ---
Physician Documentation [facility] Name: María Serrano Age: 50 yrs Sex: Female : 1975 Arrival Date: 06/23/2025 Time: 11:56 Bed 15 Private MD: ED Physician Jose Snow HPI: 06/23 12:05 This 50 yrs old Female presents to ER via Unassigned with unknown complaint. rn 12:05 Patient reports intentional overdose, took 10-12 1 mg Xanax tablets and 2 hydrocodone rn 7.5 tablets. Patient states took them around 9 AM, thinks more like 10 AM. Patient feels sleepy but no other acute complaints.. 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 - Infectious Disease History:: Denies. - Family history:: not pertinent. - Social history:: Smoking status: Patient denies any tobacco usage or history of. - Hospitalizations: : No recent hospitalization is reported. ROS: 12:05 Constitutional: Negative for fever, chills, and weight loss, Neck: Negative for injury, rn pain, and swelling, Cardiovascular: Negative for chest pain, palpitations, and edema, Respiratory: Negative for shortness of breath, cough, wheezing, and pleuritic chest pain, Abdomen/GI: Negative for abdominal pain, nausea, vomiting, diarrhea, and constipation, MS/Extremity: Negative for injury and deformity, Skin: Negative for injury, rash, and discoloration, Neuro: Negative for headache, weakness, numbness, tingling, and seizure, Exam: 12:05 Constitutional: This is a well developed, well nourished patient who is awake, rn somnolent but arousable to voice and answers questions Head/Face: Normocephalic, atraumatic. Eyes: Pupils 3 mm, reactive and equal Cardiovascular: Regular rate and rhythm. No pulse deficits. Respiratory: No increased work of breathing, no retractions or nasal flaring. Abdomen/GI: Soft, non-tender MS/ Extremity: Pulses equal, no cyanosis. Neurovascular intact. Full, normal range of motion. Equal circumference. Neuro: Somnolent but awakens to voice, moves all 4 extremities, answers questions appropriately 12:09 ECG was reviewed by the Attending Physician. rn Vital Signs: 12:06 BP 110 / 74; Pulse 86; Resp 14; Temp 98.2; Pulse Ox 91% on R/A; Weight 63.5 kg; Height nh2 5 ft. 4 in. ; Pain 0/10; 13:00 BP 106 / 76; Pulse 74; Resp 14; Pulse Ox 97% ; db 14:38 BP 110 / 73; Pulse 69; Resp 14; Pulse Ox 97% ; db 15:00 BP 110 / 80; Pulse 70; Resp 14; Pulse Ox 97% ; db 15:00 BP 110 / 80; Pulse 70; Resp 14; Pulse Ox 97% ; db 16:00 BP 115 / 74; Pulse 71; Resp 14; Pulse Ox 99% on 2 lpm NC; db 18:00 BP 111 / 83; Pulse 66; Resp 18; Temp 98.1; Pulse Ox 97% ; db 12:06 Body Mass Index 24.03 (63.50 kg, 162.56 cm) nh2 12:06 Pain Scale: Adult nh2 MDM: 11:59 Medical Screening Exam initiated rn 13:30 Differential diagnosis: Ingestion/exposure to Xanax and opiate pain medication. Data rn reviewed: vital signs, nurses notes, lab test result(s), EKG. 16:40 Consideration of Admission/Observation Escalation of care including rn psychiatric/observation considered. Escalation considered including transfer to psychiatric facility. is here and states he does not believe that she did her to kill herself. Patient is much more alert now and denies suicidal ideation or intent. She states that she took 3 pills to sleep. She states that her daughter left 6 years ago and it has been tough on her, has an upcoming birthday and took the pills to sleep and take her mind off of it, not to kill herself.. Counseling: I had a detailed discussion with the patient and/or guardian regarding the historical points, exam findings, and any diagnostic results supporting the discharge/admit diagnosis, lab results. Response to treatment: the patient's symptoms have markedly improved after treatment. ED course: Patient much more alert, arousable to just voice, denies suicidal ideations or attempt. Now that patient is much more alert states this was not an attempt to kill herself or take her life or harm herself. She states that she was trying to sleep and forget about the trouble that she was having with her daughter. agrees, does not feel like this was a suicide attempt. He states he left her for short time and she knew he was returning. When discussing possible psychiatric transfer, patient and declined, is planning on taking care of patient and has another family member that can help him. They plan on watching her 21/04 and not taking eyes off of her. Patient states in retrospect regrets taking the pills and denies suicide attempt or ideations. Discussed with the need to lock up all medications and any weapons in the house.. 17:33 ED course: Patient continues to improve, much more alert, awakens as soon as I go into rn the room and open the door. Her and still wants to go home, believes her that she will not harm herself. Patient is currently denying suicidal ideations and states that she took the pills to sleep. Return precautions given and understood. is going to make an appointment with her personal psychiatrist and they declined transfer for psychiatric evaluation at this time.. 06/23 12:05 Order name: Acetaminophen; Complete Time: 13: rn 06/23 12:05 Order name: Basic Metabolic Panel; Complete Time: : rn 06/23 12:05 Order name: CBC with Diff; Complete Time: 13: rn 06/23 12:05 Order name: ETOH Level; Complete Time: 13: rn 06/23 12:05 Order name: Hepatic Function; Complete Time: 13: rn 06/23 12:05 Order name: PT-INR; Complete Time: 13: rn 06/23 12:05 Order name: Ptt, Activated; Complete Time: 13: rn 06/23 12:05 Order name: Salicylate; Complete Time: 13: rn 06/23 12:14 Order name: Test, Serum; Complete Time: 13: db 06/23 12:05 Order name: EKG - Nurse/Tech; Complete Time: 12: rn 06/23 12:05 Order name: IV Saline Lock; Complete Time: 12: rn 06/23 12:05 Order name: Labs collected and sent; Complete Time: 12:23 rn 06/23 12:05 Order name: Suicide Precautions; Complete Time: 12:23 rn 06/23 12:05 Order name: Suicide Screening ([place]); Complete Time: 12:23 rn EC: Rate is 86 beats/min. Rhythm is regular. QRS [place] is Normal. MA interval is normal. QRS rn interval is normal. QT interval is normal. No Q waves. T waves are Normal. No ST changes noted. Clinical impression: NSR w/ Non-specific ST/T Changes. Interpreted by me. Reviewed by me. Administered Medications: 14:10 Drug: NS 0.9% IV 1000 ml IV at 1000 ml once; to be given as a bolus over 60 minutes db Route: IV; Rate: 1000 ml; Site: right antecubital; 18:00 Follow up: Response: No adverse reaction; IV Status: Completed infusion; IV Intake: db 1000ml Disposition Summary: 06/23/25 17:35 Discharge Ordered Notes: Location: Home rn Problem: new rn Symptoms: have improved rn Condition: Stable rn Diagnosis - Overdose of benzodiazepines, uncomplicated rn Followup: rn - With: Private Physician - When: As needed - Reason: Recheck today's complaints, Re-evaluation by your physician Discharge Instructions: - Discharge Summary Sheet rn - Benzodiazepine Overdose rn Forms: - Medication Reconciliation Form rn - Antibiotic advertising intern - Prescription Opioid Use rn - Patient Portal Instructions rn - Leadership Thank You Letter route returner time excluding procedures: 16:43 Critical care time: Bedside Care: 75 minutes. Total time: 75 minutes rn Signatures: Dispatcher [employer] EDIL Jose Snow MD MD rn Benton, Danielle RN Jonathan Archibald Jr, RN RN nh2 Corrections: (The following items were deleted from the chart) 12:05 12:05 ACETAMINOPHEN+C.LAB.BRZ ordered. EDMS EDMS 12:05 12:05 BASIC METABOLIC PANEL+C.LAB.BRZ ordered. EDMS EDMS 12:05 12:05 CBC+H.LAB.BRZ ordered. EDMS EDMS 12:05 12:05 ETHANOL+C.LAB.BRZ ordered. EDMS EDMS 12:05 12:05 HEPATIC FUNCTION+C.LAB.BRZ ordered. EDMS EDMS 12:05 12:05 PROTIME (+INR)+COAG.LAB.BRZ ordered. EDMS EDMS 12:06 12:05 Test, Urine+UC.LAB.BRZ ordered. EDMS EDMS 12:06 12:05 PTT, ACTIVATED+COAG.LAB.BRZ ordered. EDMS EDMS 12:06 12:05 SALICYLATE+C.LAB.BRZ ordered. EDMS EDMS 12:06 12:05 URINE DRUG SCREEN+UC.LAB.BRZ ordered. EDMS EDMS 12:14 12:14 TEST, SERUM+SC.LAB.BRZ ordered. EDMS EDMS 16:43 12:05 Patient reports intentional overdose, took 10-12 1 mg Xanax tablets and 2 rn hydrocodone 7.5 tablets. Patient states took them around 9 AM, thinks more like 10 AM. Patient states intentional and was trying to harm herself. Patient feels sleepy but no other acute complaints.. rn 17:00 16:40 ED course: Patient much more alert, arousable to just voice, denies suicidal rn ideations or attempt. Now that patient is much more alert states this was not an attempt to kill herself or take her life or harm herself. She states that she was trying to sleep and forget about the trouble that she was having with her daughter. agrees, does not feel like this was a suicide attempt. He states he left her for short time and she knew he was returning. When discussing possible psychiatric transfer, patient and declined, is planning on taking care of patient and has another family member that can help him. They plan on watching her 24/7 and not taking eyes off of her. Patient states in retrospect regrets taking the pills and denies suicide attempt or ideations.. rn
[2025-06-23 18:51] VITALS: BP 111/83; TEMP 98.1; O2SAT 97
== END 2025-06-23 18:16 | disposition home or self-care (01) ==
LOC: ER 11:56
DX: T42.4X2A Poisoning by benzodiazepines, intentional self-harm, initial encounter (principal)
CPT/HCPCS: 96361; 93005; 85025; 80048; 36415; 84703; 85610; 80076; 85730; 96360; 99285; 80143; 80179; 82077; J7030